=== PATIENT | female | born 1945 | race Caucasian/White ===

== ENCOUNTER 2017-03-03 01:36 | Inpatient (IN) | payer MEDICARE, MEDICAID ==
[2017-03-03] VITALS (16 sets, daily range): BP systolic 86–210; BP diastolic 38–86
[~2017-03-03] VITALS: Ht 172.7 cm; Wt 184.4 kg
[~2017-03-03 01:36] MED LIST: ACET650T78 PO; ASPI-611 PO; ATOR20TA66 PO; BISA-78 PO; DULR RC; FAMO-129 PO; FENO200C23 PO; GEO20I IM; HYDR-565 PO; LEVO100T PO; LISI-604 PO; LORA0.5T PO; MAGN400T39 PO; MAGN800O PO; METO50TA7 PO; MULT-1154 PO; OLAN10TA19 PO; OXCA600T5 PO; OXYB15TA PO; PERP8TAB6 PO; POLY119P2 PO; QUET200T PO; RISE5TAB PO; TRIH5TAB2 PO; VITC500T PO
[2017-03-03] MEDS ORDERED: ondansetron/PF 4mg/2ml inj IV ONE (01:45)
[2017-03-03] MEDS ORDERED: normal saline 1000ML IV soln IVB ONE (01:45)
[2017-03-03 02:11] LABS: BASOPHILS # (AUTO) 0.1 X10'3 (0-0.2); BASOPHILS % (AUTO) 0.4 % (0-1); EOSINOPHILS % (AUTO) 0 % (0-6); HEMOGLOBIN 12.2 g/dl (12.0-16.0); LYMPHOCYTES # (AUTO) 1.4 X10'3 (1.1-4.8); LYMPHOCYTES % (AUTO) 6.1 % (21-51); MEAN CORPUSCULAR HEMOGLOBIN 28.4 PG (27.0-31.0); MEAN CORPUSCULAR HGB CONC 33.8 % (33.0-36.5); MEAN CORPUSCULAR VOLUME 84.1 FL (78-98); MEAN PLATELET VOLUME 6.4 FL (7.4-10.4); MONOCYTES # (AUTO) 1.9 X10'3 (0-0.9); MONOCYTES % (AUTO) 8.6 % (2-12); NEUTROPHILS # (AUTO) 18.9 X10'3 (1.8-7.7); NEUTROPHILS % (AUTO) 84.9 % (42-75); PLATELET COUNT 389 X10'3 (140-440); RED BLOOD COUNT 4.28 X10'6 (4.20-5.60); RED CELL DISTRIBUTION WIDTH 15.1 % (11.5-14.5); WHITE BLOOD COUNT 22.2 X10'3 (4.5-11.0)
[2017-03-03 02:14] LABS: INR 1.1 INR; PARTIAL THROMBOPLASTIN TIME 31 SECONDS (22-32)
[2017-03-03 02:16] LABS: ALANINE AMINOTRANSFERASE 22 U/L (12-78); ALBUMIN/GLOBULIN RATIO 0.7 (1.1-1.5); ALKALINE PHOSPHATASE 68 IU/L (46-116); ANION GAP 6 (8-16); ASPARTATE AMINO TRANSFERASE 17 U/L (10-37); BILIRUBIN,TOTAL 0.6 MG/DL (0.1-1.0); BLOOD UREA NITROGEN 18 MG/DL (7-18); BUN/CREATININE RATIO 14.8 (6.6-38.0); CALCIUM 9.6 MG/DL (8.5-10.1); CHLORIDE 84 MMOL/L (99-107); CREATININE 1.22 MG/DL (0.40-0.90); GLUCOSE 277 MG/DL (70-104); LIPASE 83 U/L (73-393); MAGNESIUM 1.6 MG/DL (1.5-2.4); POTASSIUM 3.8 MMOL/L (3.5-5.1); SODIUM 121 MMOL/L (135-145); TOTAL CARBON DIOXIDE 31.3 MMOL/L (24-32); TOTAL PROTEIN 7.2 G/DL (6.4-8.2); eGFR 43 ML/MIN
[2017-03-03 02:44] LABS: CLARITY,URINE TURBID (Clear); COLOR,URINE YELLOW (Yellow); GLUCOSE, URINE >=1000 mg/dl (Neg); KETONES,URINE NEGATIVE (Neg); LEUKOCYTE ESTERASE ,URINE LARGE (Neg); NITRITES, URINE POSITIVE (Neg); OCCULT BLOOD,URINE SMALL (Neg); PROTEIN,URINE TRACE mg/dl (Neg); UROBILINOGEN,URINE 0.2 E.U/dL (0.2-1.0)
[2017-03-03 02:47] LABS: UA COLLECTION TYPE FOLEY CATH
[2017-03-03 02:51] LABS: WBC,URINE 50-100 /HPF (0-4)
[2017-03-03 02:52] LABS: AMORPHOUS PHOSPHATES 3+; BACTERIA,URINE 4+ /HPF (Neg); WBC CLUMPS,URINE MODERATE /HPF (NEGATIVE)
[2017-03-03 02:53] LABS: RBC,URINE 0-2 /HPF (0-2); SQUAMOUS EPITHELIAL CELL,UR MODERATE /LPF (FEW)
[2017-03-03 02:55] LABS: TRANSITIONAL EPI CELLS,URINE FEW /HPF
[2017-03-03 02:59] LABS: PLATELET ESTIMATE NORMAL; TOTAL CELLS COUNTED 100
[2017-03-03 03:00] LABS: TOXIC GRANULATION 4+; TOXIC VACUOLATION FEW
[2017-03-03] MEDS ORDERED: cefTRIAXone 1g/NS 100ml IVPB 100 ML IV ONE (03:15)
[2017-03-03] MEDS ORDERED: OXYB5TAB11 PO (03:16)
[2017-03-03] MEDS ORDERED: INSU100V9 SQ (03:16)
[2017-03-03] MEDS ORDERED: ACET-2119 PO (03:16)
[2017-03-03] MEDS ORDERED: LISI-600 PO (03:16)
[2017-03-03] MEDS ORDERED: MAGN400O6 PO (03:16)
[2017-03-03] MEDS ORDERED: RISP1TAB13 PO (03:16)
[2017-03-03] MEDS ORDERED: CefTRIAXone 1 gm/50ml D5W ADV 50 ML IV ONE (03:25)
[2017-03-03] MEDS ORDERED: MESSAGE TO PHARMACY PO ONE (04:20)
[2017-03-03] MEDS ORDERED: dextrose 50%-water 50ml dispensing syringe IV PRN ×2 (04:20)
[2017-03-03] MEDS ORDERED: glucagon, human recombinant 1mg kit SUBCUT PRN (04:20)
[2017-03-03] MEDS ORDERED: dextrose ORAL solution 15 GM/59 ML bottle PO PRN (04:20)
[2017-03-03] MEDS ORDERED: mag hydrox/Alum hydrox/simeth 30ml oral suspension PO PRN ×2 (04:25)
[2017-03-03] MEDS ORDERED: acetaminophen 325mg tablet PO PRN ×3 (04:25)
[2017-03-03] MEDS ORDERED: acetaminophen 325mg tablet PO ONE (04:25)
[2017-03-03] MEDS ORDERED: magnesium hydroxide 30ml (MOM) UD suspension PO PRN ×2 (04:25)
[2017-03-03] MEDS: normal saline 1000ml 1,000 ML IV SCH ×3 (05:34→16:03)
[2017-03-03 07:08] LABS: C-REACTIVE PROTEIN 22.27 MG/DL (0.0-0.5); CARBAMAZEPINE (TEGRETOL) < 0.5 UG/ML (4.0-12.0); CREATINE KINASE 82 U/L (26-192); TROPONIN I < 0.04 NG/ML (0.0-0.05)
[2017-03-03] MEDS ORDERED: metoprolol succinate 25mg (24-HOUR) SR. Tablet PO SCH (08:00)
[2017-03-03] MEDS ORDERED: lisinopril 20mg tablet PO SCH (08:00)
[2017-03-03] MEDS: levoTHYROXINE 100mcg tablet PO SCH (08:07)
[2017-03-03] MEDS: oxybutynin 5mg tablet PO SCH (08:09)
[2017-03-03] MEDS ORDERED: CAPT25TA3 PO (10:16)
[2017-03-03] MEDS ORDERED: NYSPWD TP (10:16)
[2017-03-03] MEDS ORDERED: LORA-269 PO (10:24)
[2017-03-03] MEDS ORDERED: MAGN400C PO (10:31)
[2017-03-03] MEDS: LORazepam 0.5 MG tablet PO PRN ×2 (10:44→11:09)
[2017-03-03] MEDS: trihexyphenidyl HCL 5 MG tablet PO SCH ×2 (11:09→21:49)
[2017-03-03] MEDS: oxcarbazepine 150mg tablet PO SCH ×2 (11:11→21:43)
[2017-03-03] MEDS: insulin Lispro (HumaLOG) vial - multi-dose SQ SCH (11:19)
[2017-03-03] MEDS ORDERED: potassium Cl 20 mEq SR tablet PO PRN ×2 (13:15)
[2017-03-03] MEDS ORDERED: vancomycin/NS 1 GM ADD-VANTAGE 250 ML IV ONE (13:20)
[2017-03-03 14:36] LABS: LACTIC SEPSIS 0.7 MMOL/L (0.4-2.0)
[2017-03-03] MEDS ORDERED: iohexol 300 MG/1 ML 50ml polymer ONE (15:42)
[2017-03-03] MEDS: K, MAG and/or Phos replacement - Verify level? MC SCH (16:06)
[2017-03-03] MEDS ORDERED: LIDOcaine 1% (10mg/ml) 2ml vial ONE (16:12)
[2017-03-03 16:14] LABS: ALANINE AMINOTRANSFERASE 24 U/L (12-78); ALBUMIN 2.6 G/DL (3.4-5.0); ALBUMIN/GLOBULIN RATIO 0.6 (1.1-1.5); ALKALINE PHOSPHATASE 61 IU/L (46-116); ANION GAP 7 (8-16); ASPARTATE AMINO TRANSFERASE 21 U/L (10-37); BILIRUBIN,TOTAL 0.5 MG/DL (0.1-1.0); BLOOD UREA NITROGEN 14 MG/DL (7-18); BUN/CREATININE RATIO 16.5 (6.6-38.0); CALCIUM 8.6 MG/DL (8.5-10.1); CHLORIDE 90 MMOL/L (99-107); CREATININE 0.85 MG/DL (0.40-0.90); GLUCOSE 165 MG/DL (70-104); SODIUM 125 MMOL/L (135-145); TOTAL CARBON DIOXIDE 27.7 MMOL/L (24-32); TOTAL PROTEIN 6.9 G/DL (6.4-8.2); eGFR 66 ML/MIN
[2017-03-03] MEDS: CefTRIAXone 1 gm/50ml D5W ADV 50 ML IV SCH ×2 (16:26→21:49)
[2017-03-03] MEDS ORDERED: fentaNYL/PF 50MCG/1 ML 2ML syringe ONE ×3 (16:27→18:25)
[2017-03-03] MEDS ORDERED: etomidate 2mg/ml inj. ONE (16:30)
[2017-03-03] MEDS ORDERED: rocuronium 10mg/ml inj IV ONE ×2 (16:30→18:25)
[2017-03-03] MEDS ORDERED: LIDOcaine 1%/PF (10mg/ml) 5ml vial ONE (16:30)
[2017-03-03] MEDS: risperiDONE 0.5mg tablet PO SCH ×2 (16:36→21:44)
[2017-03-03] MEDS ORDERED: sevoflurane 250ml liquid IH ONE ×2 (16:36)
[2017-03-03] MEDS: pantoprazole 40 MG vial IV SCH ×2 (16:36→21:42)
[2017-03-03] MEDS: lactobacillus rhamnosus 10,000 MMU CELLS/CAPSULE PO SCH (16:37)
[2017-03-03] MEDS ORDERED: midazolam 2 mg/2 ml injection ONE (18:25)
[2017-03-03] MEDS: ipratropium/albuterol 3ml nebule NEB SCH (19:00)
[2017-03-03 19:15] LABS: ABG BASE EXCESS -1.5 mmol/L (-2.0-3.0); ABG OXYGEN SATURATION 99.3 % (95-98); ABG PCO2 (T) 28.7 mmHg (32.0-45.0); ABG PH (T) 7.482 (7.350-7.450); ABG PO2 (T) 288.3 mmHg (83-108); FCOHb 0.3 % (0.5-1.5); FMetHb 0.4 % (0.3-1.12); FO2Hb 98.6 % (94-100); MINUTE VOLUME 9 L/min; PEEP 5 cm H2O; RESPIRATORY RATE 12 b/min; RESPIRATORY RATE (OBSERVED) 12 b/min; TOTAL HEMOGLOBIN 11.7 G/dl (12.0-16.0)
[2017-03-03] MEDS ORDERED: normal saline 1000ml 1,000 ML IV PRN ×2 (19:25)
[2017-03-03] MEDS ORDERED: phenylephrine 10mg/ml inj IV ONE (19:56)
[2017-03-03] MEDS: normal saline 1000ml 1,000 ML IV PRN (20:12)
[2017-03-03 20:35] LABS: OXYGEN SATURATION (MIXED VEN) 82.4 % (60-80); PO2 MIXED VENOUS (TEMP COR) 57.4 mmHg (35-46)
[2017-03-03 20:40] LABS: BASOPHILS % (AUTO) 0.1 % (0-1); EOSINOPHILS # (AUTO) 0.1 X10'3 (0-0.9); EOSINOPHILS % (AUTO) 0.4 % (0-6); HEMATOCRIT 32.8 % (35.0-45.0); HEMOGLOBIN 10.8 g/dl (12.0-16.0); LYMPHOCYTES # (AUTO) 1.4 X10'3 (1.1-4.8); LYMPHOCYTES % (AUTO) 8.5 % (21-51); MEAN CORPUSCULAR VOLUME 84.7 FL (78-98); MEAN PLATELET VOLUME 6.2 FL (7.4-10.4); MONOCYTES # (AUTO) 1.2 X10'3 (0-0.9); PLATELET COUNT 319 X10'3 (140-440); RED BLOOD COUNT 3.87 X10'6 (4.20-5.60); RED CELL DISTRIBUTION WIDTH 14.7 % (11.5-14.5); WHITE BLOOD COUNT 16.6 X10'3 (4.5-11.0)
[2017-03-03 20:49] LABS: INR 1.1 INR; PARTIAL THROMBOPLASTIN TIME 30 SECONDS (22-32); PROTHROMBIN TIME 11.1 SECONDS (9.0-12.0)
[2017-03-03 20:54] LABS: ALANINE AMINOTRANSFERASE 23 U/L (12-78); ALBUMIN 2.2 G/DL (3.4-5.0); ALBUMIN/GLOBULIN RATIO 0.6 (1.1-1.5); ALKALINE PHOSPHATASE 56 IU/L (46-116); ANION GAP 2 (8-16); ASPARTATE AMINO TRANSFERASE 20 U/L (10-37); BILIRUBIN,TOTAL 0.4 MG/DL (0.1-1.0); BLOOD UREA NITROGEN 13 MG/DL (7-18); BUN/CREATININE RATIO 15.9 (6.6-38.0); CHLORIDE 95 MMOL/L (99-107); CREATININE 0.82 MG/DL (0.40-0.90); GLUCOSE 146 MG/DL (70-104); MAGNESIUM 1.6 MG/DL (1.5-2.4); PHOSPHORUS 2.6 MG/DL (2.3-4.5); POTASSIUM 4.4 MMOL/L (3.5-5.1); SODIUM 128 MMOL/L (135-145); TOTAL CARBON DIOXIDE 30.6 MMOL/L (24-32); eGFR 68 ML/MIN
[2017-03-03 21:05] LABS: ABG BASE EXCESS -2.2 mmol/L (-2.0-3.0); ABG HCO3 24.2 mmol/L (22.0-26.0); ABG OXYGEN SATURATION 98.9 % (95-98); ABG PCO2 (T) 47.9 mmHg (32.0-45.0); ABG PH (T) 7.321 (7.350-7.450); ABG PO2 (T) 157.3 mmHg (83-108); FCOHb 0.4 % (0.5-1.5); FMetHb 0.3 % (0.3-1.12); FO2Hb 98.2 % (94-100); MINUTE VOLUME 8 L/min; PEEP 5 cm H2O; RESPIRATORY RATE 12 b/min; RESPIRATORY RATE (OBSERVED) 12 b/min; TOTAL HEMOGLOBIN 12.2 G/dl (12.0-16.0)
[2017-03-03 21:05] LABS: PO2 MIXED VENOUS (TEMP COR) 43.8 mmHg (35-46)
[2017-03-03] MEDS: acetaminophen 325mg/10.15ml oral unit dose solution PO PRN (21:43)
[2017-03-03] MEDS: hydrocortisone sod succ/PF 100mg/2ml inj. IV SCH (21:43)
[2017-03-03] MEDS: atorvastatin 20mg tablet PO SCH (21:44)
[2017-03-03] MEDS: quetiapine 100mg tablet PO SCH (21:44)
[2017-03-04] VITALS (24 sets, daily range): BP systolic 90–158; BP diastolic 44–68
[2017-03-04] MEDS ORDERED: NORepinephrine 8mg/ 250ml NS 250 ML IV ONE (00:22)
[2017-03-04] MEDS: NORepinephrine 8mg/ 250ml NS 250 ML IV SCH (00:33)
[2017-03-04] MEDS: hydrocortisone sod succ/PF 100mg/2ml inj. IV SCH ×4 (02:24→21:38)
[2017-03-04] MEDS: insulin Lispro (HumaLOG) vial - multi-dose SQ SCH ×4 (02:25→21:08)
[2017-03-04 02:46] LABS: BASOPHILS % (AUTO) 0 % (0-1); EOSINOPHILS % (AUTO) 0.1 % (0-6); HEMATOCRIT 30.6 % (35.0-45.0); HEMOGLOBIN 10.1 g/dl (12.0-16.0); LYMPHOCYTES # (AUTO) 0.8 X10'3 (1.1-4.8); LYMPHOCYTES % (AUTO) 4.4 % (21-51); MEAN CORPUSCULAR HEMOGLOBIN 28.2 PG (27.0-31.0); MEAN CORPUSCULAR HGB CONC 33.1 % (33.0-36.5); MEAN CORPUSCULAR VOLUME 85.1 FL (78-98); MEAN PLATELET VOLUME 6.6 FL (7.4-10.4); MONOCYTES # (AUTO) 1.4 X10'3 (0-0.9); MONOCYTES % (AUTO) 7.9 % (2-12); NEUTROPHILS # (AUTO) 15.8 X10'3 (1.8-7.7); NEUTROPHILS % (AUTO) 87.6 % (42-75); PLATELET COUNT 299 X10'3 (140-440); RED BLOOD COUNT 3.59 X10'6 (4.20-5.60); RED CELL DISTRIBUTION WIDTH 14.9 % (11.5-14.5); WHITE BLOOD COUNT 18.1 X10'3 (4.5-11.0)
[2017-03-04 02:56] LABS: INR 1.1 INR; PARTIAL THROMBOPLASTIN TIME 31 SECONDS (22-32); PROTHROMBIN TIME 11.1 SECONDS (9.0-12.0)
[2017-03-04 03:03] LABS: ALANINE AMINOTRANSFERASE 21 U/L (12-78); ALBUMIN/GLOBULIN RATIO 0.6 (1.1-1.5); ALKALINE PHOSPHATASE 55 IU/L (46-116); ANION GAP 7 (8-16); ASPARTATE AMINO TRANSFERASE 19 U/L (10-37); BILIRUBIN,TOTAL 0.4 MG/DL (0.1-1.0); BLOOD UREA NITROGEN 14 MG/DL (7-18); BUN/CREATININE RATIO 18.9 (6.6-38.0); CALCIUM 7.8 MG/DL (8.5-10.1); CHLORIDE 96 MMOL/L (99-107); CREATININE 0.74 MG/DL (0.40-0.90); GLUCOSE 215 MG/DL (70-104); MAGNESIUM 1.6 MG/DL (1.5-2.4); POTASSIUM 3.9 MMOL/L (3.5-5.1); SODIUM 127 MMOL/L (135-145); TOTAL CARBON DIOXIDE 23.7 MMOL/L (24-32); TOTAL PROTEIN 5.6 G/DL (6.4-8.2); eGFR 77 ML/MIN
[2017-03-04 03:06] LABS: ABG BASE EXCESS -0.4 mmol/L (-2.0-3.0); ABG HCO3 22.9 mmol/L (22.0-26.0); ABG PH (T) 7.459 (7.350-7.450); ABG PO2 (T) 89.9 mmHg (83-108); FCOHb 0.1 % (0.5-1.5); FMetHb 0.3 % (0.3-1.12); FO2Hb 96.6 % (94-100); MINUTE VOLUME 9 L/min; PEEP 5 cm H2O; RESPIRATORY RATE 12 b/min; RESPIRATORY RATE (OBSERVED) 12 b/min; TIDAL VOLUME 600 mL
[2017-03-04 03:10] LABS: ANISOCYTOSIS 1+; PLATELET ESTIMATE NORMAL; TOTAL CELLS COUNTED 100; TOXIC GRANULATION 1+
[2017-03-04] MEDS: lactobacillus rhamnosus 10,000 MMU CELLS/CAPSULE PO SCH ×2 (07:30→16:45)
[2017-03-04] MEDS: FENTANYL-0.9 % NACL/PF 100 ML IV PRN (07:42)
[2017-03-04] MEDS: midazolam 100mg in NS 100ml 100 ML IV PRN ×2 (07:42→19:05)
[2017-03-04] MEDS: ipratropium/albuterol 3ml nebule NEB SCH ×6 (07:48→22:43)
[2017-03-04] MEDS: K, MAG and/or Phos replacement - Verify level? MC SCH (08:00)
[2017-03-04] MEDS: oxcarbazepine 150mg tablet PO SCH ×2 (08:00→21:34)
[2017-03-04] MEDS: levoTHYROXINE 100mcg tablet PO SCH (08:00)
[2017-03-04] MEDS: trihexyphenidyl HCL 5 MG tablet PO SCH (08:00)
[2017-03-04] MEDS: risperiDONE 0.5mg tablet PO SCH ×2 (08:00→21:34)
[2017-03-04] MEDS: oxybutynin 5mg tablet PO SCH (08:00)
[2017-03-04] MEDS: quetiapine 100mg tablet PO SCH ×3 (08:00→21:35)
[2017-03-04] MEDS: CefTRIAXone 1 gm/50ml D5W ADV 50 ML IV SCH ×2 (08:21→22:31)
[2017-03-04] MEDS: pantoprazole 40 MG vial IV SCH ×2 (08:21→21:42)
[2017-03-04] MEDS ORDERED: methylnaltrexone br 12mg/0.6ml inj***SubQ only SQ ONE (12:15)
[2017-03-04] MEDS ORDERED: bisacodyl 10mg suppository rectal RC PRN (13:00)
[2017-03-04] MEDS: normal saline 1000ml 1,000 ML IV PRN (14:08)
[2017-03-04] MEDS: dexmedetomidin/NS 400mcg/100ml 100 ML IV SCH (20:38)
[2017-03-04] MEDS: atorvastatin 20mg tablet PO SCH (21:35)
[2017-03-04] MEDS: polyethylene glycol 3350 17gm powd pack PO SCH (21:35)
[2017-03-04] MEDS: mineral oil/petrolatum ophthal oint EACHEYE SCH (22:31)
[2017-03-05] VITALS (24 sets, daily range): BP systolic 140–196; BP diastolic 50–122
[2017-03-05] MEDS: insulin Lispro (HumaLOG) vial - multi-dose SQ SCH ×4 (02:15→21:44)
[2017-03-05 02:51] LABS: BASOPHILS % (AUTO) 0.2 % (0-1); EOSINOPHILS % (AUTO) 0.1 % (0-6); HEMATOCRIT 29.3 % (35.0-45.0); HEMOGLOBIN 10.1 g/dl (12.0-16.0); LYMPHOCYTES # (AUTO) 1.1 X10'3 (1.1-4.8); LYMPHOCYTES % (AUTO) 7.7 % (21-51); MEAN CORPUSCULAR HEMOGLOBIN 28.8 PG (27.0-31.0); MEAN CORPUSCULAR HGB CONC 34.4 % (33.0-36.5); MEAN CORPUSCULAR VOLUME 83.9 FL (78-98); MEAN PLATELET VOLUME 7.1 FL (7.4-10.4); MONOCYTES % (AUTO) 7.2 % (2-12); NEUTROPHILS % (AUTO) 84.8 % (42-75); PLATELET COUNT 326 X10'3 (140-440); RED BLOOD COUNT 3.49 X10'6 (4.20-5.60); RED CELL DISTRIBUTION WIDTH 14.2 % (11.5-14.5); WHITE BLOOD COUNT 14.1 X10'3 (4.5-11.0)
[2017-03-05] MEDS: mineral oil/petrolatum ophthal oint EACHEYE SCH ×4 (02:51→20:00)
[2017-03-05] MEDS: hydrocortisone sod succ/PF 100mg/2ml inj. IV SCH ×4 (02:51→22:19)
[2017-03-05 02:53] LABS: PARTIAL THROMBOPLASTIN TIME 29 SECONDS (22-32); PROTHROMBIN TIME 10.7 SECONDS (9.0-12.0)
[2017-03-05 02:56] LABS: ALANINE AMINOTRANSFERASE 54 U/L (12-78); ALBUMIN 1.9 G/DL (3.4-5.0); ALBUMIN/GLOBULIN RATIO 0.5 (1.1-1.5); ALKALINE PHOSPHATASE 56 IU/L (46-116); ANION GAP 7 (8-16); ASPARTATE AMINO TRANSFERASE 45 U/L (10-37); BILIRUBIN,TOTAL 0.2 MG/DL (0.1-1.0); BLOOD UREA NITROGEN 10 MG/DL (7-18); BUN/CREATININE RATIO 15.9 (6.6-38.0); CALCIUM 7.9 MG/DL (8.5-10.1); CHLORIDE 104 MMOL/L (99-107); CREATININE 0.63 MG/DL (0.40-0.90); GLUCOSE 201 MG/DL (70-104); PHOSPHORUS 1.7 MG/DL (2.3-4.5); POTASSIUM 3.8 MMOL/L (3.5-5.1); SODIUM 137 MMOL/L (135-145); TOTAL CARBON DIOXIDE 25.8 MMOL/L (24-32); TOTAL PROTEIN 5.8 G/DL (6.4-8.2); eGFR > 90 ML/MIN
[2017-03-05] MEDS: ipratropium/albuterol 3ml nebule NEB SCH ×6 (02:57→23:21)
[2017-03-05] MEDS: FENTANYL-0.9 % NACL/PF 100 ML IV PRN ×2 (02:58→19:36)
[2017-03-05 03:21] LABS: ABG BASE EXCESS -0.9 mmol/L (-2.0-3.0); ABG OXYGEN SATURATION 93.9 % (95-98); ABG PH (T) 7.426 (7.350-7.450); ABG PO2 (T) 72.4 mmHg (83-108); FCOHb 0.3 % (0.5-1.5); FO2Hb 93.6 % (94-100); MINUTE VOLUME 8 L/min; PATIENT TEMPERATURE 37.3; PEEP 5 cm H2O; RESPIRATORY RATE 12 b/min; RESPIRATORY RATE (OBSERVED) 12 b/min; TIDAL VOLUME 600 mL; TOTAL HEMOGLOBIN 10.9 G/dl (12.0-16.0)
[2017-03-05] MEDS: enalaprilat dihydrate 2.5mg/2ml vial IV PRN (04:47)
[2017-03-05] MEDS ORDERED: enalaprilat dihydrate 2.5mg/2ml vial IV ONE (06:45)
[2017-03-05] MEDS: pantoprazole 40 MG vial IV SCH ×2 (07:28→22:13)
[2017-03-05] MEDS: lactobacillus rhamnosus 10,000 MMU CELLS/CAPSULE PO SCH ×2 (07:30→17:30)
[2017-03-05] MEDS: risperiDONE 0.5mg tablet PO SCH ×2 (08:00→22:03)
[2017-03-05] MEDS: K, MAG and/or Phos replacement - Verify level? MC SCH (08:00)
[2017-03-05] MEDS ORDERED: CefTRIAXone inj 1,000 MG in normal saline 100ml IV soln 100 ML IV SCH (08:00)
[2017-03-05] MEDS: quetiapine 100mg tablet PO SCH ×3 (08:00→22:02)
[2017-03-05] MEDS: enalaprilat dihydrate 2.5mg/2ml vial IV SCH ×3 (08:00→20:00)
[2017-03-05] MEDS: oxcarbazepine 150mg tablet PO SCH ×2 (08:00→22:02)
[2017-03-05] MEDS: levoTHYROXINE 100mcg tablet PO SCH (08:00)
[2017-03-05] MEDS ORDERED: diphenhydrAMINE 50 mg/ml inj IM PRN (11:35)
[2017-03-05] MEDS ORDERED: LORazepam 2 mg/ml vial IV PRN (11:35)
[2017-03-05] MEDS ORDERED: haloperidol lactate 5mg/ml inj IM PRN (11:35)
[2017-03-05 14:36] LABS: ABG BASE EXCESS 3.7 mmol/L (-2.0-3.0); ABG PCO2 (T) 37.1 mmHg (32.0-45.0); ABG PH (T) 7.483 (7.350-7.450); ABG PO2 (T) 64.7 mmHg (83-108); FMetHb 0.3 % (0.3-1.12); FO2Hb 91.7 % (94-100); PATIENT TEMPERATURE 37.8; PEEP 5 cm H2O; TOTAL HEMOGLOBIN 11.2 G/dl (12.0-16.0)
[2017-03-05] MEDS: dexmedetomidin/NS 400mcg/100ml 100 ML IV SCH ×2 (14:44→20:01)
[2017-03-05] MEDS: hydrALAZINE 20mg/ml inj. IV PRN (14:50)
[2017-03-05] MEDS: furosemide 10 MG/1 ML 10ml inj IV SCH ×2 (14:50→22:17)
[2017-03-05] MEDS: acetaminophen 325mg/10.15ml oral unit dose solution PO PRN (19:45)
[2017-03-05] MEDS: polyethylene glycol 3350 17gm powd pack PO SCH (22:02)
[2017-03-05] MEDS: atorvastatin 20mg tablet PO SCH (22:04)
[2017-03-05] MEDS: cefTRIAXone 1g/NS 100ml IVPB 100 ML IV SCH (22:21)
[2017-03-06] VITALS (24 sets, daily range): BP systolic 122–194; BP diastolic 53–85
[2017-03-06] MEDS: NORepinephrine 8mg/ 250ml NS 250 ML IV SCH (00:20)
[2017-03-06] MEDS: enalaprilat dihydrate 2.5mg/2ml vial IV SCH ×3 (02:00→14:00)
[2017-03-06] MEDS: ipratropium/albuterol 3ml nebule NEB SCH ×6 (02:59→22:53)
[2017-03-06] MEDS ORDERED: acetaminophen 650mg rectal suppository RC PRN (03:25)
[2017-03-06 04:01] LABS: ABG BASE EXCESS 7.4 mmol/L (-2.0-3.0); ABG HCO3 30.3 mmol/L (22.0-26.0); ABG OXYGEN SATURATION 89.2 % (95-98); ABG PCO2 (T) 38.6 mmHg (32.0-45.0); ABG PH (T) 7.517 (7.350-7.450); ABG PO2 (T) 58.3 mmHg (83-108); FCOHb 0.3 % (0.5-1.5); FMetHb 0.3 % (0.3-1.12); FO2Hb 88.7 % (94-100); MINUTE VOLUME 10 L/min; PATIENT TEMPERATURE 38.3; PEEP 5 cm H2O; RESPIRATORY RATE 10 b/min; RESPIRATORY RATE (OBSERVED) 25 b/min; TIDAL VOLUME 350 mL; TOTAL HEMOGLOBIN 11.8 G/dl (12.0-16.0)
[2017-03-06 04:51] LABS: BASOPHILS % (AUTO) 0.2 % (0-1); EOSINOPHILS % (AUTO) 0 % (0-6); HEMATOCRIT 33.1 % (35.0-45.0); HEMOGLOBIN 11.1 g/dl (12.0-16.0); LYMPHOCYTES # (AUTO) 1.7 X10'3 (1.1-4.8); LYMPHOCYTES % (AUTO) 11.9 % (21-51); MEAN CORPUSCULAR HEMOGLOBIN 28.4 PG (27.0-31.0); MEAN CORPUSCULAR HGB CONC 33.6 % (33.0-36.5); MEAN CORPUSCULAR VOLUME 84.3 FL (78-98); MEAN PLATELET VOLUME 6.9 FL (7.4-10.4); MONOCYTES # (AUTO) 1.3 X10'3 (0-0.9); MONOCYTES % (AUTO) 9.2 % (2-12); NEUTROPHILS # (AUTO) 10.9 X10'3 (1.8-7.7); NEUTROPHILS % (AUTO) 78.7 % (42-75); PLATELET COUNT 403 X10'3 (140-440); RED BLOOD COUNT 3.93 X10'6 (4.20-5.60); RED CELL DISTRIBUTION WIDTH 15.2 % (11.5-14.5); WHITE BLOOD COUNT 13.9 X10'3 (4.5-11.0)
[2017-03-06 05:05] LABS: INR 1.1 INR; PARTIAL THROMBOPLASTIN TIME 25 SECONDS (22-32); PROTHROMBIN TIME 11.3 SECONDS (9.0-12.0)
[2017-03-06 05:10] LABS: ALANINE AMINOTRANSFERASE 78 U/L (12-78); ALBUMIN 2.2 G/DL (3.4-5.0); ALBUMIN/GLOBULIN RATIO 0.5 (1.1-1.5); ALKALINE PHOSPHATASE 63 IU/L (46-116); ANION GAP 6 (8-16); ASPARTATE AMINO TRANSFERASE 46 U/L (10-37); BILIRUBIN,TOTAL 0.2 MG/DL (0.1-1.0); BLOOD UREA NITROGEN 11 MG/DL (7-18); BUN/CREATININE RATIO 17.7 (6.6-38.0); CALCIUM 8.4 MG/DL (8.5-10.1); CHLORIDE 103 MMOL/L (99-107); CREATININE 0.62 MG/DL (0.40-0.90); GLUCOSE 145 MG/DL (70-104); MAGNESIUM 1.5 MG/DL (1.5-2.4); SODIUM 143 MMOL/L (135-145); TOTAL CARBON DIOXIDE 34.1 MMOL/L (24-32); TOTAL PROTEIN 6.5 G/DL (6.4-8.2); eGFR > 90 ML/MIN
[2017-03-06 05:15] LABS: POTASSIUM 2.4 MMOL/L (3.5-5.1)
[2017-03-06] MEDS ORDERED: Potassium Cl inj 40 MEQ in normal saline 250ml IV soln 230 ML IV ONE ×2 (05:30→06:05)
[2017-03-06] MEDS: hydrocortisone sod succ/PF 100mg/2ml inj. IV SCH ×4 (05:30→20:46)
[2017-03-06] MEDS: dexmedetomidin/NS 400mcg/100ml 100 ML IV SCH ×2 (05:31→18:48)
[2017-03-06] MEDS: mineral oil/petrolatum ophthal oint EACHEYE SCH ×4 (05:39→20:47)
[2017-03-06] MEDS ORDERED: potassium 10mEq/100ml NS w/LIDOcaine (10mg/bag) IV SCH (05:40)
[2017-03-06] MEDS: cefTRIAXone 1g/NS 100ml IVPB 100 ML IV SCH ×2 (07:07→20:46)
[2017-03-06] MEDS: pantoprazole 40 MG vial IV SCH ×2 (07:07→20:46)
[2017-03-06] MEDS: lactobacillus rhamnosus 10,000 MMU CELLS/CAPSULE PO SCH ×2 (07:30→17:03)
[2017-03-06] MEDS: furosemide 10 MG/1 ML 10ml inj IV SCH ×3 (07:36→20:46)
[2017-03-06] MEDS: risperiDONE 0.5mg tablet PO SCH ×2 (07:36→20:00)
[2017-03-06] MEDS: K, MAG and/or Phos replacement - Verify level? MC SCH (07:36)
[2017-03-06] MEDS: levoTHYROXINE 100mcg tablet PO SCH (07:37)
[2017-03-06] MEDS: quetiapine 100mg tablet PO SCH ×3 (07:37→20:48)
[2017-03-06] MEDS: oxcarbazepine 150mg tablet PO SCH ×2 (07:37→20:00)
[2017-03-06] MEDS: FENTANYL-0.9 % NACL/PF 100 ML IV PRN (08:42)
[2017-03-06] MEDS: midazolam 100mg in NS 100ml 100 ML IV PRN (08:42)
[2017-03-06] MEDS: hydrALAZINE 20mg/ml inj. IV PRN ×2 (08:42→16:08)
[2017-03-06 14:18] LABS: MAGNESIUM 1.5 MG/DL (1.5-2.4)
[2017-03-06 14:20] LABS: POTASSIUM 2.7 MMOL/L (3.5-5.1)
[2017-03-06] MEDS ORDERED: magnesium 2GM in 50ml NS 50 ML IV PRN (14:35)
[2017-03-06] MEDS ORDERED: magnesium 4gm in 100ml NS 100 ML IV PRN (14:35)
[2017-03-06] MEDS ORDERED: potassium Cl 40MEQ/250ML bag 250 ML IV PRN (14:35)
[2017-03-06] MEDS: insulin Lispro (HumaLOG) vial - multi-dose SQ SCH ×2 (14:48→21:09)
[2017-03-06] MEDS: potassium Cl 40MEQ/250ML bag 250 ML IV PRN (16:09)
[2017-03-06] MEDS: niCARDipine/sod cl 20mg/200ml 200 ML IV SCH ×2 (16:30→20:30)
[2017-03-06] MEDS ORDERED: methylnaltrexone br 12mg/0.6ml inj***SubQ only SQ ONE (16:30)
[2017-03-06] MEDS: atorvastatin 20mg tablet PO SCH (20:47)
[2017-03-06] MEDS: polyethylene glycol 3350 17gm powd pack PO SCH ×2 (20:47→20:48)
[2017-03-07] VITALS (24 sets, daily range): BP systolic 98–190; BP diastolic 53–88
[2017-03-07 00:30] LABS: BASOPHILS % (AUTO) 0 % (0-1); EOSINOPHILS # (AUTO) 0.1 X10'3 (0-0.9); HEMATOCRIT 32.9 % (35.0-45.0); HEMOGLOBIN 11.1 g/dl (12.0-16.0); LYMPHOCYTES # (AUTO) 1.2 X10'3 (1.1-4.8); LYMPHOCYTES % (AUTO) 10.7 % (21-51); MEAN CORPUSCULAR HEMOGLOBIN 28.2 PG (27.0-31.0); MEAN CORPUSCULAR HGB CONC 33.8 % (33.0-36.5); MEAN CORPUSCULAR VOLUME 83.3 FL (78-98); MEAN PLATELET VOLUME 6.1 FL (7.4-10.4); MONOCYTES # (AUTO) 1.2 X10'3 (0-0.9); MONOCYTES % (AUTO) 10.3 % (2-12); NEUTROPHILS # (AUTO) 8.7 X10'3 (1.8-7.7); PLATELET COUNT 456 X10'3 (140-440); RED BLOOD COUNT 3.94 X10'6 (4.20-5.60); RED CELL DISTRIBUTION WIDTH 15.1 % (11.5-14.5); WHITE BLOOD COUNT 11.2 X10'3 (4.5-11.0)
[2017-03-07] MEDS: niCARDipine/sod cl 20mg/200ml 200 ML IV SCH ×6 (00:30→20:30)
[2017-03-07 00:42] LABS: INR 1.1 INR; PARTIAL THROMBOPLASTIN TIME 26 SECONDS (22-32); PROTHROMBIN TIME 11.4 SECONDS (9.0-12.0)
[2017-03-07 01:07] LABS: ALANINE AMINOTRANSFERASE 64 U/L (12-78); ALBUMIN 2.2 G/DL (3.4-5.0); ALBUMIN/GLOBULIN RATIO 0.5 (1.1-1.5); ALKALINE PHOSPHATASE 65 IU/L (46-116); ANION GAP 7 (8-16); ASPARTATE AMINO TRANSFERASE 30 U/L (10-37); BILIRUBIN,TOTAL 0.3 MG/DL (0.1-1.0); BLOOD UREA NITROGEN 15 MG/DL (7-18); BUN/CREATININE RATIO 20.8 (6.6-38.0); CALCIUM 8.3 MG/DL (8.5-10.1); CHLORIDE 108 MMOL/L (99-107); CREATININE 0.72 MG/DL (0.40-0.90); GLUCOSE 185 MG/DL (70-104); MAGNESIUM 1.6 MG/DL (1.5-2.4); PHOSPHORUS 2.2 MG/DL (2.3-4.5); SODIUM 147 MMOL/L (135-145); TOTAL CARBON DIOXIDE 32.1 MMOL/L (24-32); TOTAL PROTEIN 6.6 G/DL (6.4-8.2); eGFR 79 ML/MIN
[2017-03-07 01:13] LABS: POTASSIUM 2.9 MMOL/L (3.5-5.1)
[2017-03-07] MEDS ORDERED: potassium Cl 40MEQ/250ML bag 500 ML IV ONE (01:24)
[2017-03-07] MEDS: FENTANYL-0.9 % NACL/PF 100 ML IV PRN (01:36)
[2017-03-07] MEDS: dexmedetomidin/NS 400mcg/100ml 100 ML IV SCH (01:54)
[2017-03-07] MEDS: hydrocortisone sod succ/PF 100mg/2ml inj. IV SCH ×4 (01:55→19:50)
[2017-03-07] MEDS: mineral oil/petrolatum ophthal oint EACHEYE SCH ×4 (01:56→20:00)
[2017-03-07] MEDS: insulin Lispro (HumaLOG) vial - multi-dose SQ SCH ×4 (02:01→20:33)
[2017-03-07 02:55] LABS: ABG BASE EXCESS 6.7 mmol/L (-2.0-3.0); ABG HCO3 30.1 mmol/L (22.0-26.0); ABG OXYGEN SATURATION 94.2 % (95-98); ABG PCO2 (T) 41.5 mmHg (32.0-45.0); ABG PH (T) 7.485 (7.350-7.450); ABG PO2 (T) 74.4 mmHg (83-108); FCOHb 0.1 % (0.5-1.5); FMetHb 0.3 % (0.3-1.12); FO2Hb 93.8 % (94-100); MINUTE VOLUME 8 L/min; PATIENT TEMPERATURE 38.7; PEEP 5 cm H2O; RESPIRATORY RATE 8 b/min; RESPIRATORY RATE (OBSERVED) 30 b/min; TIDAL VOLUME 450 mL; TOTAL HEMOGLOBIN 11.5 G/dl (12.0-16.0)
[2017-03-07] MEDS: ipratropium/albuterol 3ml nebule NEB SCH ×6 (03:07→23:28)
[2017-03-07] MEDS: acetaminophen 325mg/10.15ml oral unit dose solution PO PRN (04:20)
[2017-03-07] MEDS: hydrALAZINE 20mg/ml inj. IV PRN ×3 (04:20→17:47)
[2017-03-07] MEDS: cefTRIAXone 1g/NS 100ml IVPB 100 ML IV SCH ×2 (07:31→19:50)
[2017-03-07] MEDS: pantoprazole 40 MG vial IV SCH ×2 (07:31→19:50)
[2017-03-07] MEDS: quetiapine 100mg tablet PO SCH ×3 (07:31→21:11)
[2017-03-07] MEDS: lactobacillus rhamnosus 10,000 MMU CELLS/CAPSULE PO SCH ×2 (07:31→17:30)
[2017-03-07] MEDS: furosemide 10 MG/1 ML 10ml inj IV SCH (07:31)
[2017-03-07] MEDS: risperiDONE 0.5mg tablet PO SCH ×2 (07:31→19:49)
[2017-03-07] MEDS: levoTHYROXINE 100mcg tablet PO SCH (07:32)
[2017-03-07] MEDS: enoxaparin 40mg/0.4ml syringe SUBCUT SCH (07:32)
[2017-03-07] MEDS: oxcarbazepine 150mg tablet PO SCH ×2 (07:32→19:50)
[2017-03-07] MEDS: K, MAG and/or Phos replacement - Verify level? MC SCH (08:00)
[2017-03-07] MEDS: potassium Cl 40MEQ/250ML bag 250 ML IV PRN ×3 (12:07→22:07)
[2017-03-07] MEDS: normal saline 1000ml 1,000 ML IV PRN (14:51)
[2017-03-07] MEDS: enalaprilat dihydrate 2.5mg/2ml vial IV PRN ×2 (15:17→21:54)
[2017-03-07] MEDS: polyethylene glycol 3350 17gm powd pack PO SCH ×2 (21:00)
[2017-03-07] MEDS: atorvastatin 20mg tablet PO SCH (21:10)
[2017-03-08] VITALS (25 sets, daily range): BP systolic 137–179; BP diastolic 57–79
[2017-03-08] MEDS: NORepinephrine 8mg/ 250ml NS 250 ML IV SCH (00:20)
[2017-03-08] MEDS: niCARDipine/sod cl 20mg/200ml 200 ML IV SCH ×6 (00:30→20:30)
[2017-03-08] MEDS: normal saline 1000ml 1,000 ML IV PRN (00:45)
[2017-03-08] MEDS: hydrALAZINE 20mg/ml inj. IV PRN ×4 (01:42→17:09)
[2017-03-08] MEDS: hydrocortisone sod succ/PF 100mg/2ml inj. IV SCH ×4 (01:42→19:44)
[2017-03-08 01:59] LABS: BASOPHILS % (AUTO) 0.3 % (0-1); EOSINOPHILS # (AUTO) 0.1 X10'3 (0-0.9); EOSINOPHILS % (AUTO) 0.6 % (0-6); HEMATOCRIT 34.1 % (35.0-45.0); HEMOGLOBIN 11.3 g/dl (12.0-16.0); LYMPHOCYTES % (AUTO) 15.2 % (21-51); MEAN CORPUSCULAR HEMOGLOBIN 28.2 PG (27.0-31.0); MEAN CORPUSCULAR HGB CONC 33.2 % (33.0-36.5); MEAN CORPUSCULAR VOLUME 85.1 FL (78-98); MEAN PLATELET VOLUME 6.7 FL (7.4-10.4); MONOCYTES # (AUTO) 1.2 X10'3 (0-0.9); MONOCYTES % (AUTO) 9.4 % (2-12); NEUTROPHILS # (AUTO) 9.7 X10'3 (1.8-7.7); NEUTROPHILS % (AUTO) 74.5 % (42-75); PLATELET COUNT 478 X10'3 (140-440); RED BLOOD COUNT 4.01 X10'6 (4.20-5.60); RED CELL DISTRIBUTION WIDTH 15.4 % (11.5-14.5)
[2017-03-08] MEDS: mineral oil/petrolatum ophthal oint EACHEYE SCH ×4 (02:00→19:44)
[2017-03-08 02:04] LABS: INR 1.2 INR; PARTIAL THROMBOPLASTIN TIME 24 SECONDS (22-32); PROTHROMBIN TIME 12.2 SECONDS (9.0-12.0)
[2017-03-08 02:07] LABS: ALANINE AMINOTRANSFERASE 64 U/L (12-78); ALBUMIN 2.4 G/DL (3.4-5.0); ALBUMIN/GLOBULIN RATIO 0.6 (1.1-1.5); ALKALINE PHOSPHATASE 64 IU/L (46-116); ANION GAP 11 (8-16); ASPARTATE AMINO TRANSFERASE 32 U/L (10-37); BILIRUBIN,TOTAL 0.5 MG/DL (0.1-1.0); BLOOD UREA NITROGEN 16 MG/DL (7-18); BUN/CREATININE RATIO 26.7 (6.6-38.0); CALCIUM 8.9 MG/DL (8.5-10.1); CHLORIDE 118 MMOL/L (99-107); GLUCOSE 195 MG/DL (70-104); MAGNESIUM 1.9 MG/DL (1.5-2.4); PHOSPHORUS 2.1 MG/DL (2.3-4.5); POTASSIUM 3.7 MMOL/L (3.5-5.1); TOTAL CARBON DIOXIDE 27.4 MMOL/L (24-32); TOTAL PROTEIN 6.6 G/DL (6.4-8.2); eGFR > 90 ML/MIN
[2017-03-08 02:10] LABS: SODIUM 156 MMOL/L (135-145)
[2017-03-08] MEDS ORDERED: dextrose 5%-1/2 normal saline 1,000 ML IV SCH (03:01)
[2017-03-08] MEDS: ipratropium/albuterol 3ml nebule NEB SCH ×6 (03:18→23:24)
[2017-03-08] MEDS: enalaprilat dihydrate 2.5mg/2ml vial IV PRN ×2 (05:55→10:27)
[2017-03-08] MEDS: levoTHYROXINE 100mcg tablet PO SCH (07:26)
[2017-03-08] MEDS: lactobacillus rhamnosus 10,000 MMU CELLS/CAPSULE PO SCH ×2 (07:26→17:09)
[2017-03-08] MEDS: quetiapine 100mg tablet PO SCH ×3 (07:26→21:35)
[2017-03-08] MEDS: oxcarbazepine 150mg tablet PO SCH ×2 (07:27→19:44)
[2017-03-08] MEDS: risperiDONE 0.5mg tablet PO SCH ×2 (07:27→19:44)
[2017-03-08] MEDS: cefTRIAXone 1g/NS 100ml IVPB 100 ML IV SCH ×2 (07:32→19:43)
[2017-03-08] MEDS: enoxaparin 40mg/0.4ml syringe SUBCUT SCH (07:32)
[2017-03-08] MEDS: pantoprazole 40 MG vial IV SCH ×2 (07:41→19:43)
[2017-03-08] MEDS: K, MAG and/or Phos replacement - Verify level? MC SCH (07:41)
[2017-03-08] MEDS: insulin Lispro (HumaLOG) vial - multi-dose SQ SCH ×3 (08:25→20:16)
[2017-03-08] MEDS: dextrose 5%-water 1,000 ML IV SCH (09:06)
[2017-03-08] MEDS: metoprolol succinate 25mg (24-HOUR) SR. Tablet PO SCH (09:36)
[2017-03-08] MEDS: lisinopril 20mg tablet PO SCH (09:36)
[2017-03-08] MEDS: nystatin 500,000 unit/5ML UD oral suspension PO SCH ×2 (13:12→21:35)
[2017-03-08] MEDS: polyethylene glycol 3350 17gm powd pack PO SCH ×2 (21:00)
[2017-03-08] MEDS: atorvastatin 20mg tablet PO SCH (21:35)
[2017-03-09] VITALS (22 sets, daily range): BP systolic 115–187; BP diastolic 52–101
[2017-03-09] MEDS: dextrose 5%-water 1,000 ML IV SCH (00:12)
[2017-03-09] MEDS: niCARDipine/sod cl 20mg/200ml 200 ML IV SCH ×3 (00:30→08:30)
[2017-03-09] MEDS: ipratropium/albuterol 3ml nebule NEB SCH ×6 (03:32→22:49)
[2017-03-09] MEDS: enalaprilat dihydrate 2.5mg/2ml vial IV PRN (03:42)
[2017-03-09] MEDS: mineral oil/petrolatum ophthal oint EACHEYE SCH ×2 (03:42→08:00)
[2017-03-09] MEDS: hydrocortisone sod succ/PF 100mg/2ml inj. IV SCH ×3 (03:42→14:15)
[2017-03-09 03:46] LABS: BASOPHILS % (AUTO) 0.1 % (0-1); EOSINOPHILS # (AUTO) 0.2 X10'3 (0-0.9); EOSINOPHILS % (AUTO) 1.2 % (0-6); HEMATOCRIT 34.3 % (35.0-45.0); HEMOGLOBIN 11.3 g/dl (12.0-16.0); LYMPHOCYTES # (AUTO) 2.8 X10'3 (1.1-4.8); LYMPHOCYTES % (AUTO) 22.1 % (21-51); MEAN CORPUSCULAR VOLUME 84.9 FL (78-98); MEAN PLATELET VOLUME 6.7 FL (7.4-10.4); NEUTROPHILS # (AUTO) 8.6 X10'3 (1.8-7.7); NEUTROPHILS % (AUTO) 68.6 % (42-75); PLATELET COUNT 494 X10'3 (140-440); RED BLOOD COUNT 4.04 X10'6 (4.20-5.60); RED CELL DISTRIBUTION WIDTH 15.7 % (11.5-14.5); WHITE BLOOD COUNT 12.5 X10'3 (4.5-11.0)
[2017-03-09 03:58] LABS: INR 1.2 INR; PARTIAL THROMBOPLASTIN TIME 23 SECONDS (22-32); PROTHROMBIN TIME 12.2 SECONDS (9.0-12.0)
[2017-03-09 04:04] LABS: ALANINE AMINOTRANSFERASE 60 U/L (12-78); ALBUMIN 2.3 G/DL (3.4-5.0); ALBUMIN/GLOBULIN RATIO 0.6 (1.1-1.5); ALKALINE PHOSPHATASE 59 IU/L (46-116); ANION GAP 7 (8-16); ASPARTATE AMINO TRANSFERASE 29 U/L (10-37); BILIRUBIN,TOTAL 0.5 MG/DL (0.1-1.0); BLOOD UREA NITROGEN 15 MG/DL (7-18); CALCIUM 8.8 MG/DL (8.5-10.1); CHLORIDE 115 MMOL/L (99-107); GLUCOSE 244 MG/DL (70-104); MAGNESIUM 1.8 MG/DL (1.5-2.4); PHOSPHORUS 2.7 MG/DL (2.3-4.5); SODIUM 153 MMOL/L (135-145); TOTAL CARBON DIOXIDE 30.8 MMOL/L (24-32); TOTAL PROTEIN 6.2 G/DL (6.4-8.2); eGFR > 90 ML/MIN
[2017-03-09 04:07] LABS: POTASSIUM 2.8 MMOL/L (3.5-5.1)
[2017-03-09] MEDS: hydrALAZINE 20mg/ml inj. IV PRN (05:48)
[2017-03-09] MEDS: potassium Cl 40MEQ/250ML bag 250 ML IV PRN ×2 (06:53→08:51)
[2017-03-09] MEDS: Potassium Cl inj 40 MEQ in dextrose 5%-water 980 ML IV SCH ×2 (06:53→15:42)
[2017-03-09] MEDS: K, MAG and/or Phos replacement - Verify level? MC SCH (08:00)
[2017-03-09] MEDS: nystatin 500,000 unit/5ML UD oral suspension PO SCH ×3 (08:23→20:25)
[2017-03-09] MEDS: oxcarbazepine 150mg tablet PO SCH ×2 (08:23→19:39)
[2017-03-09] MEDS: risperiDONE 0.5mg tablet PO SCH ×2 (08:23→19:39)
[2017-03-09] MEDS: pantoprazole 40 MG vial IV SCH (08:23)
[2017-03-09] MEDS: lisinopril 20mg tablet PO SCH (08:23)
[2017-03-09] MEDS: metoprolol succinate 25mg (24-HOUR) SR. Tablet PO SCH (08:23)
[2017-03-09] MEDS: levoTHYROXINE 100mcg tablet PO SCH (08:23)
[2017-03-09] MEDS: lactobacillus rhamnosus 10,000 MMU CELLS/CAPSULE PO SCH ×2 (08:23→17:30)
[2017-03-09] MEDS: quetiapine 100mg tablet PO SCH ×3 (08:23→20:25)
[2017-03-09] MEDS: cefTRIAXone 1g/NS 100ml IVPB 100 ML IV SCH (08:24)
[2017-03-09] MEDS: enoxaparin 40mg/0.4ml syringe SUBCUT SCH (08:24)
[2017-03-09] MEDS: insulin Lispro (HumaLOG) vial - multi-dose SQ SCH ×3 (08:55→20:57)
[2017-03-09] MEDS: piperacillin/tazo 3.375gm/50ml 50 ML IV SCH ×2 (17:34→19:39)
[2017-03-09] MEDS: polyethylene glycol 3350 17gm powd pack PO SCH (20:25)
[2017-03-09] MEDS: atorvastatin 20mg tablet PO SCH (20:25)
[2017-03-10] VITALS (21 sets, daily range): BP systolic 131–178; BP diastolic 0–89
[2017-03-10] MEDS: Potassium Cl inj 40 MEQ in dextrose 5%-water 980 ML IV SCH ×4 (02:08→19:25)
[2017-03-10] MEDS: piperacillin/tazo 3.375gm/50ml 50 ML IV SCH ×2 (02:08→07:52)
[2017-03-10] MEDS: ipratropium/albuterol 3ml nebule NEB SCH ×4 (02:59→21:02)
[2017-03-10 03:46] LABS: BASOPHILS % (AUTO) 0.1 % (0-1); EOSINOPHILS # (AUTO) 0.2 X10'3 (0-0.9); EOSINOPHILS % (AUTO) 2.4 % (0-6); HEMATOCRIT 29.8 % (35.0-45.0); HEMOGLOBIN 9.7 g/dl (12.0-16.0); LYMPHOCYTES # (AUTO) 3.2 X10'3 (1.1-4.8); LYMPHOCYTES % (AUTO) 31.7 % (21-51); MEAN CORPUSCULAR HEMOGLOBIN 27.8 PG (27.0-31.0); MEAN CORPUSCULAR HGB CONC 32.7 % (33.0-36.5); MEAN CORPUSCULAR VOLUME 85.1 FL (78-98); MEAN PLATELET VOLUME 6.8 FL (7.4-10.4); MONOCYTES # (AUTO) 0.8 X10'3 (0-0.9); MONOCYTES % (AUTO) 8.3 % (2-12); NEUTROPHILS # (AUTO) 5.7 X10'3 (1.8-7.7); NEUTROPHILS % (AUTO) 57.5 % (42-75); PLATELET COUNT 391 X10'3 (140-440); RED CELL DISTRIBUTION WIDTH 15.2 % (11.5-14.5)
[2017-03-10 03:59] LABS: INR 1.2 INR; PARTIAL THROMBOPLASTIN TIME 24 SECONDS (22-32); PROTHROMBIN TIME 12.1 SECONDS (9.0-12.0)
[2017-03-10 04:15] LABS: ALANINE AMINOTRANSFERASE 47 U/L (12-78); ALBUMIN 1.9 G/DL (3.4-5.0); ALBUMIN/GLOBULIN RATIO 0.6 (1.1-1.5); ALKALINE PHOSPHATASE 63 IU/L (46-116); ANION GAP 7 (8-16); ASPARTATE AMINO TRANSFERASE 20 U/L (10-37); BILIRUBIN,TOTAL 0.4 MG/DL (0.1-1.0); BLOOD UREA NITROGEN 12 MG/DL (7-18); BUN/CREATININE RATIO 18.5 (6.6-38.0); CALCIUM 7.7 MG/DL (8.5-10.1); CHLORIDE 113 MMOL/L (99-107); CREATININE 0.65 MG/DL (0.40-0.90); GLUCOSE 232 MG/DL (70-104); MAGNESIUM 1.4 MG/DL (1.5-2.4); PHOSPHORUS 2.7 MG/DL (2.3-4.5); POTASSIUM 3.5 MMOL/L (3.5-5.1); SODIUM 147 MMOL/L (135-145); eGFR 89 ML/MIN
[2017-03-10] MEDS: K, MAG and/or Phos replacement - Verify level? MC SCH (07:33)
[2017-03-10] MEDS: lactobacillus rhamnosus 10,000 MMU CELLS/CAPSULE PO SCH ×2 (07:50→17:02)
[2017-03-10] MEDS: risperiDONE 0.5mg tablet PO SCH ×2 (07:50→19:24)
[2017-03-10] MEDS: lisinopril 20mg tablet PO SCH (07:50)
[2017-03-10] MEDS: metoprolol succinate 25mg (24-HOUR) SR. Tablet PO SCH (07:50)
[2017-03-10] MEDS: quetiapine 100mg tablet PO SCH ×3 (07:51→21:54)
[2017-03-10] MEDS: levoTHYROXINE 100mcg tablet PO SCH (07:51)
[2017-03-10] MEDS: oxcarbazepine 150mg tablet PO SCH ×2 (07:51→19:24)
[2017-03-10] MEDS: nystatin 500,000 unit/5ML UD oral suspension PO SCH ×3 (07:52→21:54)
[2017-03-10] MEDS: enoxaparin 40mg/0.4ml syringe SUBCUT SCH (07:52)
[2017-03-10] MEDS: ondansetron/PF 4mg/2ml inj IV PRN ×2 (08:11→17:02)
[2017-03-10] MEDS: insulin Lispro (HumaLOG) vial - multi-dose SQ SCH ×3 (08:18→19:14)
[2017-03-10] MEDS ORDERED: ipratropium/albuterol 3ml nebule NEB PRN (11:00)
[2017-03-10] MEDS: Protein Smoothie (high protein) 240ml (8oz) cup PO SCH ×2 (13:00→18:00)
[2017-03-10] MEDS: LACTOSE-FREE FOOD 237ML (BOOST) PO SCH ×2 (13:00→18:30)
[2017-03-10] MEDS: cefepime 1GM/NS ADD-VANTAGE 100 ML IV SCH (16:27)
[2017-03-10] MEDS ORDERED: POTASSIUM 40MEQ/500ML NS ***PERIPHERAL LINE REPLACE IV PRN (20:25)
[2017-03-10] MEDS: atorvastatin 20mg tablet PO SCH (21:54)
[2017-03-10] MEDS: polyethylene glycol 3350 17gm powd pack PO SCH (21:54)
[2017-03-11] MEDS: cefepime 1GM/NS ADD-VANTAGE 100 ML IV SCH ×3 (00:46→16:26)
[2017-03-11 03:00] VITALS: BP 138/71
[2017-03-11] MEDS: ipratropium/albuterol 3ml nebule NEB SCH ×4 (03:57→20:30)
[2017-03-11 06:00] VITALS: BP 152/70
[2017-03-11] MEDS: Potassium Cl inj 40 MEQ in dextrose 5%-water 980 ML IV SCH ×3 (06:36→16:26)
[2017-03-11] MEDS: metoprolol succinate 25mg (24-HOUR) SR. Tablet PO SCH (07:51)
[2017-03-11] MEDS: levoTHYROXINE 100mcg tablet PO SCH (07:51)
[2017-03-11] MEDS: lisinopril 20mg tablet PO SCH (07:52)
[2017-03-11] MEDS: risperiDONE 0.5mg tablet PO SCH ×2 (07:52→20:14)
[2017-03-11] MEDS: oxcarbazepine 150mg tablet PO SCH ×2 (07:52→20:14)
[2017-03-11] MEDS: quetiapine 100mg tablet PO SCH ×3 (07:52→20:14)
[2017-03-11] MEDS: nystatin 500,000 unit/5ML UD oral suspension PO SCH ×3 (07:52→20:15)
[2017-03-11] MEDS: lactobacillus rhamnosus 10,000 MMU CELLS/CAPSULE PO SCH ×2 (07:52→17:35)
[2017-03-11] MEDS: enoxaparin 40mg/0.4ml syringe SUBCUT SCH (07:59)
[2017-03-11] MEDS: Protein Smoothie (high protein) 240ml (8oz) cup PO SCH ×3 (08:00→18:06)
[2017-03-11] MEDS: K, MAG and/or Phos replacement - Verify level? MC SCH (08:00)
[2017-03-11] MEDS: LACTOSE-FREE FOOD 237ML (BOOST) PO SCH ×3 (08:00→18:06)
[2017-03-11] MEDS: insulin Lispro (HumaLOG) vial - multi-dose SQ SCH ×2 (08:47→14:00)
[2017-03-11 09:39] LABS: BASOPHILS % (AUTO) 0.2 % (0-1); EOSINOPHILS # (AUTO) 0.4 X10'3 (0-0.9); EOSINOPHILS % (AUTO) 3.4 % (0-6); HEMATOCRIT 36.3 % (35.0-45.0); HEMOGLOBIN 11.9 g/dl (12.0-16.0); LYMPHOCYTES # (AUTO) 1.9 X10'3 (1.1-4.8); LYMPHOCYTES % (AUTO) 16.8 % (21-51); MEAN CORPUSCULAR HEMOGLOBIN 27.7 PG (27.0-31.0); MEAN CORPUSCULAR HGB CONC 32.8 % (33.0-36.5); MEAN CORPUSCULAR VOLUME 84.6 FL (78-98); MEAN PLATELET VOLUME 6.6 FL (7.4-10.4); MONOCYTES # (AUTO) 0.5 X10'3 (0-0.9); MONOCYTES % (AUTO) 4.4 % (2-12); NEUTROPHILS # (AUTO) 8.4 X10'3 (1.8-7.7); NEUTROPHILS % (AUTO) 75.2 % (42-75); PLATELET COUNT 386 X10'3 (140-440); RED BLOOD COUNT 4.29 X10'6 (4.20-5.60); RED CELL DISTRIBUTION WIDTH 14.9 % (11.5-14.5); WHITE BLOOD COUNT 11.2 X10'3 (4.5-11.0)
[2017-03-11 09:50] LABS: PARTIAL THROMBOPLASTIN TIME 26 SECONDS (22-32); PROTHROMBIN TIME 10.7 SECONDS (9.0-12.0)
[2017-03-11 09:53] LABS: ALANINE AMINOTRANSFERASE 49 U/L (12-78); ALBUMIN 2.2 G/DL (3.4-5.0); ALBUMIN/GLOBULIN RATIO 0.6 (1.1-1.5); ALKALINE PHOSPHATASE 78 IU/L (46-116); ANION GAP 5 (8-16); ASPARTATE AMINO TRANSFERASE 19 U/L (10-37); BILIRUBIN,TOTAL 0.4 MG/DL (0.1-1.0); BLOOD UREA NITROGEN 9 MG/DL (7-18); BUN/CREATININE RATIO 11.7 (6.6-38.0); CHLORIDE 100 MMOL/L (99-107); CREATININE 0.77 MG/DL (0.40-0.90); GLUCOSE 322 MG/DL (70-104); MAGNESIUM 1.4 MG/DL (1.5-2.4); PHOSPHORUS 3.6 MG/DL (2.3-4.5); POTASSIUM 4.5 MMOL/L (3.5-5.1); SODIUM 135 MMOL/L (135-145); TOTAL CARBON DIOXIDE 29.7 MMOL/L (24-32); TOTAL PROTEIN 5.9 G/DL (6.4-8.2); eGFR 73 ML/MIN
[2017-03-11 11:00] VITALS: BP 133/65
[2017-03-11] MEDS ORDERED: magnesium 2GM in 50ml NS 50 ML IV PRN (12:35)
[2017-03-11] MEDS ORDERED: magnesium 4gm in 100ml NS 100 ML IV PRN (12:35)
[2017-03-11] MEDS: magnesium Cl slow-release 64mg tablet PO PRN ×2 (12:50→20:14)
[2017-03-11 15:00] VITALS: BP 133/53
[2017-03-11 18:00] VITALS: BP 135/82
[2017-03-11] MEDS: atorvastatin 20mg tablet PO SCH (20:14)
[2017-03-11] MEDS: polyethylene glycol 3350 17gm powd pack PO SCH (20:41)
[2017-03-11 22:00] VITALS: BP 122/68
[2017-03-12] MEDS: cefepime 1GM/NS ADD-VANTAGE 100 ML IV SCH ×3 (00:33→16:38)
[2017-03-12 02:00] VITALS: BP 159/77
[2017-03-12] MEDS: ipratropium/albuterol 3ml nebule NEB SCH ×4 (03:53→20:26)
[2017-03-12 06:00] VITALS: BP 138/83
[2017-03-12] MEDS: quetiapine 100mg tablet PO SCH ×4 (08:00→21:09)
[2017-03-12] MEDS: oxcarbazepine 150mg tablet PO SCH ×2 (08:00→21:09)
[2017-03-12] MEDS: K, MAG and/or Phos replacement - Verify level? MC SCH (08:00)
[2017-03-12] MEDS: nystatin 500,000 unit/5ML UD oral suspension PO SCH ×3 (08:08→21:08)
[2017-03-12] MEDS: lactobacillus rhamnosus 10,000 MMU CELLS/CAPSULE PO SCH ×2 (08:08→16:38)
[2017-03-12] MEDS: lisinopril 20mg tablet PO SCH (08:09)
[2017-03-12] MEDS: metoprolol succinate 25mg (24-HOUR) SR. Tablet PO SCH (08:19)
[2017-03-12] MEDS: levoTHYROXINE 100mcg tablet PO SCH (08:19)
[2017-03-12] MEDS: risperiDONE 0.5mg tablet PO SCH ×2 (08:19→21:08)
[2017-03-12] MEDS: LACTOSE-FREE FOOD 237ML (BOOST) PO SCH ×3 (08:22→18:01)
[2017-03-12] MEDS: enoxaparin 40mg/0.4ml syringe SUBCUT SCH (08:24)
[2017-03-12] MEDS: Protein Smoothie (high protein) 240ml (8oz) cup PO SCH ×3 (08:25→18:01)
[2017-03-12] MEDS: insulin Lispro (HumaLOG) vial - multi-dose SQ SCH ×3 (09:27→19:32)
[2017-03-12 11:00] VITALS: BP 128/78
[2017-03-12 15:00] VITALS: BP 109/73
[2017-03-12 19:00] VITALS: BP 125/60
[2017-03-12] MEDS: polyethylene glycol 3350 17gm powd pack PO SCH (21:09)
[2017-03-12] MEDS: atorvastatin 20mg tablet PO SCH (21:09)
[2017-03-12 23:00] VITALS: BP 150/66
[2017-03-13] MEDS: cefepime 1GM/NS ADD-VANTAGE 100 ML IV SCH ×4 (00:30→23:57)
[2017-03-13 03:00] VITALS: BP 129/64
[2017-03-13] MEDS: ipratropium/albuterol 3ml nebule NEB SCH ×4 (04:03→21:00)
[2017-03-13 06:00] VITALS: BP 120/65
[2017-03-13 06:33] LABS: BASOPHILS # (AUTO) 0.1 X10'3 (0-0.2); BASOPHILS % (AUTO) 0.4 % (0-1); EOSINOPHILS # (AUTO) 0.6 X10'3 (0-0.9); EOSINOPHILS % (AUTO) 3.9 % (0-6); HEMATOCRIT 37.5 % (35.0-45.0); HEMOGLOBIN 12.4 g/dl (12.0-16.0); LYMPHOCYTES # (AUTO) 2.8 X10'3 (1.1-4.8); LYMPHOCYTES % (AUTO) 19.1 % (21-51); MEAN CORPUSCULAR HEMOGLOBIN 27.8 PG (27.0-31.0); MEAN CORPUSCULAR VOLUME 84.3 FL (78-98); MEAN PLATELET VOLUME 7.3 FL (7.4-10.4); MONOCYTES # (AUTO) 0.7 X10'3 (0-0.9); NEUTROPHILS # (AUTO) 10.5 X10'3 (1.8-7.7); NEUTROPHILS % (AUTO) 71.6 % (42-75); PLATELET COUNT 398 X10'3 (140-440); RED BLOOD COUNT 4.45 X10'6 (4.20-5.60); WHITE BLOOD COUNT 14.7 X10'3 (4.5-11.0)
[2017-03-13 06:44] LABS: PARTIAL THROMBOPLASTIN TIME 24 SECONDS (22-32); PROTHROMBIN TIME 10.5 SECONDS (9.0-12.0)
[2017-03-13 06:47] LABS: ALANINE AMINOTRANSFERASE 52 U/L (12-78); ALBUMIN 2.4 G/DL (3.4-5.0); ALBUMIN/GLOBULIN RATIO 0.6 (1.1-1.5); ALKALINE PHOSPHATASE 75 IU/L (46-116); ANION GAP 6 (8-16); ASPARTATE AMINO TRANSFERASE 25 U/L (10-37); BILIRUBIN,TOTAL 0.5 MG/DL (0.1-1.0); BLOOD UREA NITROGEN 13 MG/DL (7-18); BUN/CREATININE RATIO 22.4 (6.6-38.0); CALCIUM 9.3 MG/DL (8.5-10.1); CHLORIDE 103 MMOL/L (99-107); CREATININE 0.58 MG/DL (0.40-0.90); GLUCOSE 200 MG/DL (70-104); MAGNESIUM 1.6 MG/DL (1.5-2.4); PHOSPHORUS 2.9 MG/DL (2.3-4.5); POTASSIUM 3.9 MMOL/L (3.5-5.1); SODIUM 137 MMOL/L (135-145); TOTAL CARBON DIOXIDE 27.7 MMOL/L (24-32); TOTAL PROTEIN 6.4 G/DL (6.4-8.2); eGFR > 90 ML/MIN
[2017-03-13] MEDS: enoxaparin 40mg/0.4ml syringe SUBCUT SCH (07:26)
[2017-03-13] MEDS: lactobacillus rhamnosus 10,000 MMU CELLS/CAPSULE PO SCH ×2 (07:27→17:24)
[2017-03-13] MEDS: metoprolol succinate 25mg (24-HOUR) SR. Tablet PO SCH (07:28)
[2017-03-13] MEDS: risperiDONE 0.5mg tablet PO SCH ×3 (07:28→21:38)
[2017-03-13] MEDS: quetiapine 100mg tablet PO SCH ×3 (07:28→21:29)
[2017-03-13] MEDS: nystatin 500,000 unit/5ML UD oral suspension PO SCH ×3 (07:28→21:31)
[2017-03-13] MEDS: levoTHYROXINE 100mcg tablet PO SCH (07:28)
[2017-03-13] MEDS: lisinopril 20mg tablet PO SCH (07:28)
[2017-03-13] MEDS: LACTOSE-FREE FOOD 237ML (BOOST) PO SCH ×3 (07:29→18:07)
[2017-03-13] MEDS: oxcarbazepine 150mg tablet PO SCH ×3 (07:30→21:37)
[2017-03-13] MEDS: Protein Smoothie (high protein) 240ml (8oz) cup PO SCH ×3 (07:33→18:07)
[2017-03-13] MEDS: K, MAG and/or Phos replacement - Verify level? MC SCH (08:00)
[2017-03-13] MEDS: insulin Lispro (HumaLOG) vial - multi-dose SQ SCH ×4 (09:20→22:09)
[2017-03-13 11:00] VITALS: BP 94/65
[2017-03-13 15:00] VITALS: BP 95/55
[2017-03-13 19:00] VITALS: BP 152/75
[2017-03-13] MEDS: ondansetron/PF 4mg/2ml inj IV PRN (20:23)
[2017-03-13] MEDS: polyethylene glycol 3350 17gm powd pack PO SCH (21:00)
[2017-03-13] MEDS: atorvastatin 20mg tablet PO SCH (21:30)
[2017-03-13 23:00] VITALS: BP 153/60
[2017-03-14] VITALS (8 sets, daily range): BP systolic 95–117; BP diastolic 36–57
[2017-03-14] MEDS: ipratropium/albuterol 3ml nebule NEB SCH ×4 (03:00→21:00)
[2017-03-14] MEDS: acetaminophen 325mg/10.15ml oral unit dose solution PO PRN (03:24)
[2017-03-14 05:55] LABS: BASOPHILS # (AUTO) 0.1 X10'3 (0-0.2); BASOPHILS % (AUTO) 0.2 % (0-1); EOSINOPHILS # (AUTO) 0.6 X10'3 (0-0.9); HEMATOCRIT 37.1 % (35.0-45.0); HEMOGLOBIN 12.5 g/dl (12.0-16.0); LYMPHOCYTES # (AUTO) 2.1 X10'3 (1.1-4.8); LYMPHOCYTES % (AUTO) 7.3 % (21-51); MEAN CORPUSCULAR HEMOGLOBIN 28.4 PG (27.0-31.0); MEAN CORPUSCULAR HGB CONC 33.7 % (33.0-36.5); MEAN CORPUSCULAR VOLUME 84.5 FL (78-98); MEAN PLATELET VOLUME 7.6 FL (7.4-10.4); MONOCYTES # (AUTO) 1.9 X10'3 (0-0.9); MONOCYTES % (AUTO) 6.7 % (2-12); NEUTROPHILS # (AUTO) 24.1 X10'3 (1.8-7.7); NEUTROPHILS % (AUTO) 83.8 % (42-75); PLATELET COUNT 411 X10'3 (140-440); RED CELL DISTRIBUTION WIDTH 15.3 % (11.5-14.5)
[2017-03-14 06:04] LABS: WHITE BLOOD COUNT 28.7 X10'3 (4.5-11.0)
[2017-03-14 06:07] LABS: PARTIAL THROMBOPLASTIN TIME 25 SECONDS (22-32); PROTHROMBIN TIME 10.4 SECONDS (9.0-12.0)
[2017-03-14 06:36] LABS: ALANINE AMINOTRANSFERASE 45 U/L (12-78); ALBUMIN 2.3 G/DL (3.4-5.0); ALBUMIN/GLOBULIN RATIO 0.6 (1.1-1.5); ALKALINE PHOSPHATASE 83 IU/L (46-116); ANION GAP 10 (8-16); ASPARTATE AMINO TRANSFERASE 54 U/L (10-37); BILIRUBIN,TOTAL 0.5 MG/DL (0.1-1.0); BLOOD UREA NITROGEN 17 MG/DL (7-18); BUN/CREATININE RATIO 19.1 (6.6-38.0); CALCIUM 9.3 MG/DL (8.5-10.1); CHLORIDE 98 MMOL/L (99-107); CREATININE 0.89 MG/DL (0.40-0.90); GLUCOSE 224 MG/DL (70-104); MAGNESIUM 1.6 MG/DL (1.5-2.4); PHOSPHORUS 3.6 MG/DL (2.3-4.5); SODIUM 134 MMOL/L (135-145); TOTAL CARBON DIOXIDE 26.4 MMOL/L (24-32); TOTAL PROTEIN 6.4 G/DL (6.4-8.2); eGFR 62 ML/MIN
[2017-03-14 07:05] LABS: PLATELET ESTIMATE NORMAL; TOTAL CELLS COUNTED 100
[2017-03-14] MEDS: lactobacillus rhamnosus 10,000 MMU CELLS/CAPSULE PO SCH ×2 (07:30→17:21)
[2017-03-14] MEDS: LACTOSE-FREE FOOD 237ML (BOOST) PO SCH ×3 (08:00→18:00)
[2017-03-14] MEDS: Protein Smoothie (high protein) 240ml (8oz) cup PO SCH ×3 (08:00→18:00)
[2017-03-14] MEDS: K, MAG and/or Phos replacement - Verify level? MC SCH (08:00)
[2017-03-14] MEDS: ondansetron/PF 4mg/2ml inj IV PRN (08:50)
[2017-03-14] MEDS: enoxaparin 40mg/0.4ml syringe SUBCUT SCH (09:04)
[2017-03-14] MEDS: cefepime 1GM/NS ADD-VANTAGE 100 ML IV SCH ×3 (09:06→23:25)
[2017-03-14] MEDS: quetiapine 100mg tablet PO SCH ×3 (09:11→20:27)
[2017-03-14] MEDS: lisinopril 20mg tablet PO SCH (09:13)
[2017-03-14] MEDS: metoprolol succinate 25mg (24-HOUR) SR. Tablet PO SCH (09:14)
[2017-03-14] MEDS: oxcarbazepine 150mg tablet PO SCH ×2 (09:16→20:26)
[2017-03-14] MEDS: risperiDONE 0.5mg tablet PO SCH ×2 (09:17→20:26)
[2017-03-14] MEDS: levoTHYROXINE 100mcg tablet PO SCH (09:17)
[2017-03-14] MEDS: nystatin 500,000 unit/5ML UD oral suspension PO SCH ×3 (09:21→20:26)
[2017-03-14] MEDS: insulin Lispro (HumaLOG) vial - multi-dose SQ SCH ×2 (09:25→13:19)
[2017-03-14 11:15] LABS: CLARITY,URINE CLOUDY (Clear); COLOR,URINE YELLOW (Yellow); GLUCOSE, URINE NEGATIVE (Neg); KETONES,URINE NEGATIVE (Neg); LEUKOCYTE ESTERASE ,URINE MODERATE (Neg); NITRITES, URINE NEGATIVE (Neg); OCCULT BLOOD,URINE LARGE (Neg); PROTEIN,URINE 100 mg/dl (Neg); UROBILINOGEN,URINE 0.2 E.U/dL (0.2-1.0)
[2017-03-14 11:17] LABS: UA COLLECTION TYPE FOLEY CATH
[2017-03-14 11:20] LABS: RBC,URINE 20-50 /HPF (0-2); SQUAMOUS EPITHELIAL CELL,UR MODERATE /LPF (FEW); WBC,URINE TNTC /HPF (0-4)
[2017-03-14 11:21] LABS: BACTERIA,URINE 2+ /HPF (Neg)
[2017-03-14] MEDS: Insulin Detemir pen SQ SCH (20:25)
[2017-03-14] MEDS: atorvastatin 20mg tablet PO SCH (20:27)
[2017-03-14] MEDS: polyethylene glycol 3350 17gm powd pack PO SCH (20:27)
[2017-03-15 03:00] VITALS: BP 141/56
[2017-03-15] MEDS: ipratropium/albuterol 3ml nebule NEB SCH ×4 (03:00→20:48)
[2017-03-15 05:36] LABS: PARTIAL THROMBOPLASTIN TIME 27 SECONDS (22-32); PROTHROMBIN TIME 10.5 SECONDS (9.0-12.0)
[2017-03-15 05:42] LABS: ALANINE AMINOTRANSFERASE 53 U/L (12-78); ALBUMIN 2.1 G/DL (3.4-5.0); ALBUMIN/GLOBULIN RATIO 0.5 (1.1-1.5); ALKALINE PHOSPHATASE 80 IU/L (46-116); ANION GAP 9 (8-16); ASPARTATE AMINO TRANSFERASE 49 U/L (10-37); BILIRUBIN,TOTAL 0.3 MG/DL (0.1-1.0); BLOOD UREA NITROGEN 23 MG/DL (7-18); BUN/CREATININE RATIO 29.5 (6.6-38.0); CALCIUM 8.8 MG/DL (8.5-10.1); CHLORIDE 98 MMOL/L (99-107); CREATININE 0.78 MG/DL (0.40-0.90); GLUCOSE 184 MG/DL (70-104); MAGNESIUM 1.5 MG/DL (1.5-2.4); PHOSPHORUS 3.8 MG/DL (2.3-4.5); POTASSIUM 3.7 MMOL/L (3.5-5.1); SODIUM 134 MMOL/L (135-145); TOTAL CARBON DIOXIDE 27.5 MMOL/L (24-32); TOTAL PROTEIN 6.1 G/DL (6.4-8.2); eGFR 72 ML/MIN
[2017-03-15 06:00] VITALS: BP 131/62
[2017-03-15 06:08] LABS: BASOPHILS # (AUTO) 0.1 X10'3 (0-0.2); BASOPHILS % (AUTO) 0.4 % (0-1); EOSINOPHILS # (AUTO) 0.3 X10'3 (0-0.9); EOSINOPHILS % (AUTO) 1.3 % (0-6); HEMATOCRIT 32.5 % (35.0-45.0); HEMOGLOBIN 10.8 g/dl (12.0-16.0); LYMPHOCYTES # (AUTO) 2.2 X10'3 (1.1-4.8); LYMPHOCYTES % (AUTO) 11.4 % (21-51); MEAN CORPUSCULAR HEMOGLOBIN 28.1 PG (27.0-31.0); MEAN CORPUSCULAR HGB CONC 33.2 % (33.0-36.5); MEAN CORPUSCULAR VOLUME 84.5 FL (78-98); MEAN PLATELET VOLUME 7.9 FL (7.4-10.4); MONOCYTES # (AUTO) 1.6 X10'3 (0-0.9); MONOCYTES % (AUTO) 8.2 % (2-12); NEUTROPHILS # (AUTO) 15.3 X10'3 (1.8-7.7); NEUTROPHILS % (AUTO) 78.7 % (42-75); PLATELET COUNT 396 X10'3 (140-440); RED BLOOD COUNT 3.85 X10'6 (4.20-5.60); RED CELL DISTRIBUTION WIDTH 15.3 % (11.5-14.5); WHITE BLOOD COUNT 19.5 X10'3 (4.5-11.0)
[2017-03-15] MEDS: Protein Smoothie (high protein) 240ml (8oz) cup PO SCH ×4 (08:00→18:51)
[2017-03-15] MEDS: K, MAG and/or Phos replacement - Verify level? MC SCH (08:00)
[2017-03-15] MEDS: LACTOSE-FREE FOOD 237ML (BOOST) PO SCH ×5 (08:00→18:52)
[2017-03-15] MEDS: risperiDONE 0.5mg tablet PO SCH ×2 (09:14→19:54)
[2017-03-15] MEDS: oxcarbazepine 150mg tablet PO SCH ×2 (09:14→19:55)
[2017-03-15] MEDS: metoprolol succinate 25mg (24-HOUR) SR. Tablet PO SCH (09:14)
[2017-03-15] MEDS: lisinopril 20mg tablet PO SCH (09:15)
[2017-03-15] MEDS: quetiapine 100mg tablet PO SCH ×3 (09:15→19:54)
[2017-03-15] MEDS: levoTHYROXINE 100mcg tablet PO SCH (09:15)
[2017-03-15] MEDS: cefepime 1GM/NS ADD-VANTAGE 100 ML IV SCH ×2 (09:16→15:35)
[2017-03-15] MEDS: lactobacillus rhamnosus 10,000 MMU CELLS/CAPSULE PO SCH ×2 (09:16→17:22)
[2017-03-15] MEDS: enoxaparin 40mg/0.4ml syringe SUBCUT SCH (09:17)
[2017-03-15] MEDS: insulin Lispro (HumaLOG) vial - multi-dose SQ SCH ×2 (09:30→13:33)
[2017-03-15] MEDS: nystatin 500,000 unit/5ML UD oral suspension PO SCH ×3 (09:34→19:55)
[2017-03-15 11:00] VITALS: BP 110/45
[2017-03-15 15:30] VITALS: BP 139/65
[2017-03-15 19:00] VITALS: BP 134/79
[2017-03-15] MEDS: atorvastatin 20mg tablet PO SCH (19:54)
[2017-03-15] MEDS: polyethylene glycol 3350 17gm powd pack PO SCH ×2 (19:55→20:05)
[2017-03-15] MEDS: Insulin Detemir pen SQ SCH (21:31)
[2017-03-15 23:00] VITALS: BP 150/43
[2017-03-16] MEDS: cefepime 1GM/NS ADD-VANTAGE 100 ML IV SCH ×3 (00:10→16:55)
[2017-03-16] MEDS: ipratropium/albuterol 3ml nebule NEB SCH ×3 (02:46→21:00)
[2017-03-16 03:00] VITALS: BP 102/46
[2017-03-16 05:38] LABS: BASOPHILS # (AUTO) 0.1 X10'3 (0-0.2); BASOPHILS % (AUTO) 0.5 % (0-1); EOSINOPHILS # (AUTO) 0.3 X10'3 (0-0.9); EOSINOPHILS % (AUTO) 2.2 % (0-6); HEMATOCRIT 30.4 % (35.0-45.0); HEMOGLOBIN 10.1 g/dl (12.0-16.0); LYMPHOCYTES # (AUTO) 2.8 X10'3 (1.1-4.8); MEAN CORPUSCULAR HEMOGLOBIN 27.8 PG (27.0-31.0); MEAN CORPUSCULAR HGB CONC 33.3 % (33.0-36.5); MEAN CORPUSCULAR VOLUME 83.5 FL (78-98); MEAN PLATELET VOLUME 7.4 FL (7.4-10.4); MONOCYTES # (AUTO) 1.1 X10'3 (0-0.9); MONOCYTES % (AUTO) 7.5 % (2-12); NEUTROPHILS # (AUTO) 10.5 X10'3 (1.8-7.7); NEUTROPHILS % (AUTO) 70.8 % (42-75); PLATELET COUNT 398 X10'3 (140-440); RED BLOOD COUNT 3.64 X10'6 (4.20-5.60); RED CELL DISTRIBUTION WIDTH 15.1 % (11.5-14.5); WHITE BLOOD COUNT 14.9 X10'3 (4.5-11.0)
[2017-03-16 06:07] LABS: PARTIAL THROMBOPLASTIN TIME 26 SECONDS (22-32); PROTHROMBIN TIME 10.6 SECONDS (9.0-12.0)
[2017-03-16 06:08] LABS: ALANINE AMINOTRANSFERASE 86 U/L (12-78); ALBUMIN/GLOBULIN RATIO 0.5 (1.1-1.5); ALKALINE PHOSPHATASE 77 IU/L (46-116); ANION GAP 5 (8-16); ASPARTATE AMINO TRANSFERASE 56 U/L (10-37); BILIRUBIN,TOTAL 0.3 MG/DL (0.1-1.0); BLOOD UREA NITROGEN 14 MG/DL (7-18); CALCIUM 8.5 MG/DL (8.5-10.1); CHLORIDE 100 MMOL/L (99-107); GLUCOSE 103 MG/DL (70-104); MAGNESIUM 1.5 MG/DL (1.5-2.4); PHOSPHORUS 2.9 MG/DL (2.3-4.5); POTASSIUM 3.6 MMOL/L (3.5-5.1); SODIUM 134 MMOL/L (135-145); TOTAL CARBON DIOXIDE 29.2 MMOL/L (24-32); eGFR > 90 ML/MIN
[2017-03-16] MEDS: K, MAG and/or Phos replacement - Verify level? MC SCH (08:00)
[2017-03-16] MEDS: LACTOSE-FREE FOOD 237ML (BOOST) PO SCH ×5 (08:00→18:00)
[2017-03-16] MEDS: nystatin 500,000 unit/5ML UD oral suspension PO SCH ×3 (09:05→20:54)
[2017-03-16] MEDS: risperiDONE 0.5mg tablet PO SCH ×2 (09:05→20:54)
[2017-03-16] MEDS: oxcarbazepine 150mg tablet PO SCH ×2 (09:05→20:54)
[2017-03-16] MEDS: levoTHYROXINE 100mcg tablet PO SCH (09:06)
[2017-03-16] MEDS: enoxaparin 40mg/0.4ml syringe SUBCUT SCH (09:06)
[2017-03-16] MEDS: quetiapine 100mg tablet PO SCH ×3 (09:06→20:54)
[2017-03-16] MEDS: lactobacillus rhamnosus 10,000 MMU CELLS/CAPSULE PO SCH ×2 (09:06→16:55)
[2017-03-16] MEDS: metoprolol succinate 25mg (24-HOUR) SR. Tablet PO SCH (09:07)
[2017-03-16] MEDS: lisinopril 20mg tablet PO SCH (09:07)
[2017-03-16 11:00] VITALS: BP 142/67
[2017-03-16] MEDS: Protein Smoothie (high protein) 240ml (8oz) cup PO SCH ×2 (12:43→18:00)
[2017-03-16 12:46] LABS: C DIFF ANTIGEN POSITIVE (NEGATIVE); C DIFF SPECIMEN=DIARRHEA? ACCEPTABLE; C DIFFICILE TOXINS A&B POSITIVE (Neg)
[2017-03-16] MEDS: insulin Lispro (HumaLOG) vial - multi-dose SQ SCH ×2 (13:09→18:51)
[2017-03-16] MEDS: vancomycin 125mg/5ml ORAL solution 5ml UD bottle PO SCH ×2 (14:43→20:54)
[2017-03-16 15:00] VITALS: BP 139/58
[2017-03-16 19:00] VITALS: BP 129/54
[2017-03-16] MEDS: atorvastatin 20mg tablet PO SCH (20:54)
[2017-03-16] MEDS: polyethylene glycol 3350 17gm powd pack PO SCH (21:00)
[2017-03-16] MEDS: Insulin Detemir pen SQ SCH (21:01)
[2017-03-16 23:00] VITALS: BP 128/47
[2017-03-17] MEDS: cefepime 1GM/NS ADD-VANTAGE 100 ML IV SCH (00:06)
[2017-03-17] MEDS: vancomycin 125mg/5ml ORAL solution 5ml UD bottle PO SCH ×4 (01:11→20:55)
[2017-03-17 03:00] VITALS: BP 119/53
[2017-03-17] MEDS: ipratropium/albuterol 3ml nebule NEB SCH (03:00)
[2017-03-17 06:00] VITALS: BP 105/50
[2017-03-17] MEDS ORDERED: ipratropium/albuterol 3ml nebule NEB PRN (06:15)
[2017-03-17 06:19] LABS: BASOPHILS # (AUTO) 0.1 X10'3 (0-0.2); BASOPHILS % (AUTO) 0.6 % (0-1); EOSINOPHILS # (AUTO) 0.2 X10'3 (0-0.9); EOSINOPHILS % (AUTO) 1.7 % (0-6); HEMATOCRIT 31.2 % (35.0-45.0); HEMOGLOBIN 10.4 g/dl (12.0-16.0); LYMPHOCYTES # (AUTO) 2.3 X10'3 (1.1-4.8); LYMPHOCYTES % (AUTO) 16.8 % (21-51); MEAN CORPUSCULAR HEMOGLOBIN 28.2 PG (27.0-31.0); MEAN CORPUSCULAR HGB CONC 33.5 % (33.0-36.5); MEAN CORPUSCULAR VOLUME 84.2 FL (78-98); MEAN PLATELET VOLUME 7.4 FL (7.4-10.4); MONOCYTES % (AUTO) 7.7 % (2-12); NEUTROPHILS # (AUTO) 9.8 X10'3 (1.8-7.7); NEUTROPHILS % (AUTO) 73.2 % (42-75); PLATELET COUNT 464 X10'3 (140-440); RED BLOOD COUNT 3.71 X10'6 (4.20-5.60); WHITE BLOOD COUNT 13.4 X10'3 (4.5-11.0)
[2017-03-17 06:25] LABS: PARTIAL THROMBOPLASTIN TIME 26 SECONDS (22-32); PROTHROMBIN TIME 10.1 SECONDS (9.0-12.0)
[2017-03-17 06:43] LABS: ALANINE AMINOTRANSFERASE 103 U/L (12-78); ALBUMIN 2.1 G/DL (3.4-5.0); ALBUMIN/GLOBULIN RATIO 0.5 (1.1-1.5); ALKALINE PHOSPHATASE 90 IU/L (46-116); ANION GAP 7 (8-16); ASPARTATE AMINO TRANSFERASE 53 U/L (10-37); BILIRUBIN,TOTAL 0.4 MG/DL (0.1-1.0); BLOOD UREA NITROGEN 10 MG/DL (7-18); BUN/CREATININE RATIO 21.7 (6.6-38.0); CALCIUM 8.7 MG/DL (8.5-10.1); CHLORIDE 103 MMOL/L (99-107); CREATININE 0.46 MG/DL (0.40-0.90); GLUCOSE 121 MG/DL (70-104); MAGNESIUM 1.4 MG/DL (1.5-2.4); PHOSPHORUS 2.9 MG/DL (2.3-4.5); POTASSIUM 3.9 MMOL/L (3.5-5.1); SODIUM 138 MMOL/L (135-145); TOTAL CARBON DIOXIDE 28.4 MMOL/L (24-32); TOTAL PROTEIN 6.2 G/DL (6.4-8.2); eGFR > 90 ML/MIN
[2017-03-17] MEDS: K, MAG and/or Phos replacement - Verify level? MC SCH (08:00)
[2017-03-17] MEDS: nystatin 500,000 unit/5ML UD oral suspension PO SCH ×3 (08:55→20:55)
[2017-03-17] MEDS: risperiDONE 0.5mg tablet PO SCH ×2 (08:55→20:55)
[2017-03-17] MEDS: levoTHYROXINE 100mcg tablet PO SCH (08:55)
[2017-03-17] MEDS: lactobacillus rhamnosus 10,000 MMU CELLS/CAPSULE PO SCH ×2 (08:55→17:33)
[2017-03-17] MEDS: metoprolol succinate 25mg (24-HOUR) SR. Tablet PO SCH (08:55)
[2017-03-17] MEDS: quetiapine 100mg tablet PO SCH ×3 (08:55→20:55)
[2017-03-17] MEDS: lisinopril 20mg tablet PO SCH (08:55)
[2017-03-17] MEDS: enoxaparin 40mg/0.4ml syringe SUBCUT SCH (08:55)
[2017-03-17] MEDS: LACTOSE-FREE FOOD 237ML (BOOST) PO SCH ×6 (08:56→17:35)
[2017-03-17] MEDS: Protein Smoothie (high protein) 240ml (8oz) cup PO SCH ×3 (08:56→17:34)
[2017-03-17] MEDS: oxcarbazepine 150mg tablet PO SCH ×2 (08:56→20:55)
[2017-03-17] MEDS: insulin Lispro (HumaLOG) vial - multi-dose SQ SCH ×2 (09:37→13:43)
[2017-03-17 15:00] VITALS: BP 123/61
[2017-03-17 19:00] VITALS: BP 116/49
[2017-03-17] MEDS: polyethylene glycol 3350 17gm powd pack PO SCH (20:49)
[2017-03-17] MEDS: atorvastatin 20mg tablet PO SCH (20:55)
[2017-03-17] MEDS: Insulin Detemir pen SQ SCH (21:30)
[2017-03-17] MEDS ORDERED: magnesium 4gm in 100ml NS 100 ML IV PRN (22:40)
[2017-03-17] MEDS ORDERED: magnesium 2GM in 50ml NS 50 ML IV PRN (22:40)
[2017-03-17 23:00] VITALS: BP 115/50
[2017-03-18] MEDS: vancomycin 125mg/5ml ORAL solution 5ml UD bottle PO SCH ×4 (04:30→19:41)
[2017-03-18 06:00] VITALS: BP 148/78
[2017-03-18 07:01] LABS: BASOPHILS % (AUTO) 0 % (0-1); EOSINOPHILS # (AUTO) 0.5 X10'3 (0-0.9); EOSINOPHILS % (AUTO) 3.3 % (0-6); HEMATOCRIT 35.3 % (35.0-45.0); HEMOGLOBIN 11.6 g/dl (12.0-16.0); LYMPHOCYTES # (AUTO) 2.3 X10'3 (1.1-4.8); LYMPHOCYTES % (AUTO) 16.9 % (21-51); MEAN CORPUSCULAR HEMOGLOBIN 27.8 PG (27.0-31.0); MEAN CORPUSCULAR HGB CONC 32.7 % (33.0-36.5); MEAN CORPUSCULAR VOLUME 85.1 FL (78-98); MEAN PLATELET VOLUME 7.5 FL (7.4-10.4); MONOCYTES # (AUTO) 0.5 X10'3 (0-0.9); MONOCYTES % (AUTO) 3.6 % (2-12); NEUTROPHILS # (AUTO) 10.5 X10'3 (1.8-7.7); NEUTROPHILS % (AUTO) 76.2 % (42-75); PLATELET COUNT 461 X10'3 (140-440); RED BLOOD COUNT 4.15 X10'6 (4.20-5.60); RED CELL DISTRIBUTION WIDTH 15.3 % (11.5-14.5); WHITE BLOOD COUNT 13.7 X10'3 (4.5-11.0)
[2017-03-18 07:44] LABS: ALANINE AMINOTRANSFERASE 83 U/L (12-78); ALBUMIN 2.2 G/DL (3.4-5.0); ALBUMIN/GLOBULIN RATIO 0.5 (1.1-1.5); ALKALINE PHOSPHATASE 106 IU/L (46-116); ANION GAP 6 (8-16); ASPARTATE AMINO TRANSFERASE 37 U/L (10-37); BILIRUBIN,TOTAL 0.3 MG/DL (0.1-1.0); BLOOD UREA NITROGEN 10 MG/DL (7-18); BUN/CREATININE RATIO 18.2 (6.6-38.0); CALCIUM 9.1 MG/DL (8.5-10.1); CHLORIDE 101 MMOL/L (99-107); CREATININE 0.55 MG/DL (0.40-0.90); GLUCOSE 141 MG/DL (70-104); MAGNESIUM 1.4 MG/DL (1.5-2.4); POTASSIUM 3.8 MMOL/L (3.5-5.1); SODIUM 134 MMOL/L (135-145); TOTAL CARBON DIOXIDE 26.9 MMOL/L (24-32); TOTAL PROTEIN 6.7 G/DL (6.4-8.2); eGFR > 90 ML/MIN
[2017-03-18] MEDS: LACTOSE-FREE FOOD 237ML (BOOST) PO SCH ×6 (08:00→18:51)
[2017-03-18] MEDS: Protein Smoothie (high protein) 240ml (8oz) cup PO SCH ×3 (08:00→18:51)
[2017-03-18] MEDS: risperiDONE 0.5mg tablet PO SCH ×2 (08:34→19:40)
[2017-03-18] MEDS: lactobacillus rhamnosus 10,000 MMU CELLS/CAPSULE PO SCH (08:34)
[2017-03-18] MEDS: nystatin 500,000 unit/5ML UD oral suspension PO SCH ×3 (08:34→21:00)
[2017-03-18] MEDS: oxcarbazepine 150mg tablet PO SCH ×2 (08:35→19:41)
[2017-03-18] MEDS: metoprolol succinate 25mg (24-HOUR) SR. Tablet PO SCH (08:35)
[2017-03-18] MEDS: lisinopril 20mg tablet PO SCH (08:35)
[2017-03-18] MEDS: levoTHYROXINE 100mcg tablet PO SCH (08:35)
[2017-03-18] MEDS: quetiapine 100mg tablet PO SCH ×3 (08:35→19:41)
[2017-03-18] MEDS: enoxaparin 40mg/0.4ml syringe SUBCUT SCH (08:36)
[2017-03-18] MEDS: K, MAG and/or Phos replacement - Verify level? MC SCH (08:38)
[2017-03-18] MEDS: insulin Lispro (HumaLOG) vial - multi-dose SQ SCH ×3 (09:23→19:44)
[2017-03-18] MEDS: polyethylene glycol 3350 17gm powd pack PO SCH (18:49)
[2017-03-18] MEDS: atorvastatin 20mg tablet PO SCH (19:40)
[2017-03-18] MEDS: magnesium Cl slow-release 64mg tablet PO PRN (19:41)
[2017-03-18 22:00] VITALS: BP 156/82
[2017-03-18] MEDS: Insulin Detemir pen SQ SCH (22:19)
[2017-03-19] MEDS: vancomycin 125mg/5ml ORAL solution 5ml UD bottle PO SCH ×4 (02:59→20:34)
[2017-03-19 05:00] VITALS: BP 153/82
[2017-03-19 06:50] LABS: BASOPHILS # (AUTO) 0.1 X10'3 (0-0.2); BASOPHILS % (AUTO) 0.7 % (0-1); EOSINOPHILS # (AUTO) 0.4 X10'3 (0-0.9); EOSINOPHILS % (AUTO) 3.9 % (0-6); HEMATOCRIT 31.1 % (35.0-45.0); HEMOGLOBIN 10.2 g/dl (12.0-16.0); LYMPHOCYTES # (AUTO) 2.5 X10'3 (1.1-4.8); LYMPHOCYTES % (AUTO) 25.7 % (21-51); MEAN CORPUSCULAR HEMOGLOBIN 27.8 PG (27.0-31.0); MEAN CORPUSCULAR HGB CONC 32.8 % (33.0-36.5); MEAN CORPUSCULAR VOLUME 84.6 FL (78-98); MONOCYTES # (AUTO) 0.4 X10'3 (0-0.9); MONOCYTES % (AUTO) 4.5 % (2-12); NEUTROPHILS # (AUTO) 6.3 X10'3 (1.8-7.7); NEUTROPHILS % (AUTO) 65.2 % (42-75); PLATELET COUNT 480 X10'3 (140-440); RED BLOOD COUNT 3.67 X10'6 (4.20-5.60); RED CELL DISTRIBUTION WIDTH 15.2 % (11.5-14.5); WHITE BLOOD COUNT 9.7 X10'3 (4.5-11.0)
[2017-03-19] MEDS: LACTOBACILLUS RHAMNOSUS GG 15 billion unit sprinkle caps PO SCH (07:30)
[2017-03-19 07:38] LABS: ALANINE AMINOTRANSFERASE 62 U/L (12-78); ALBUMIN 1.9 G/DL (3.4-5.0); ALBUMIN/GLOBULIN RATIO 0.5 (1.1-1.5); ALKALINE PHOSPHATASE 103 IU/L (46-116); ANION GAP 9 (8-16); ASPARTATE AMINO TRANSFERASE 23 U/L (10-37); BILIRUBIN,TOTAL 0.2 MG/DL (0.1-1.0); BLOOD UREA NITROGEN 7 MG/DL (7-18); CALCIUM 8.3 MG/DL (8.5-10.1); CHLORIDE 103 MMOL/L (99-107); CREATININE 0.54 MG/DL (0.40-0.90); GLUCOSE 135 MG/DL (70-104); MAGNESIUM 1.2 MG/DL (1.5-2.4); POTASSIUM 4.2 MMOL/L (3.5-5.1); SODIUM 138 MMOL/L (135-145); TOTAL CARBON DIOXIDE 25.6 MMOL/L (24-32); TOTAL PROTEIN 6.1 G/DL (6.4-8.2); eGFR > 90 ML/MIN
[2017-03-19] MEDS: LACTOSE-FREE FOOD 237ML (BOOST) PO SCH ×6 (08:00→18:00)
[2017-03-19] MEDS: K, MAG and/or Phos replacement - Verify level? MC SCH (08:00)
[2017-03-19] MEDS: enoxaparin 40mg/0.4ml syringe SUBCUT SCH (08:00)
[2017-03-19] MEDS: Protein Smoothie (high protein) 240ml (8oz) cup PO SCH ×3 (08:00→18:00)
[2017-03-19] MEDS: oxcarbazepine 150mg tablet PO SCH ×2 (08:51→20:34)
[2017-03-19] MEDS: metoprolol succinate 25mg (24-HOUR) SR. Tablet PO SCH (08:51)
[2017-03-19] MEDS: levoTHYROXINE 100mcg tablet PO SCH (08:51)
[2017-03-19] MEDS: risperiDONE 0.5mg tablet PO SCH ×2 (08:51→20:34)
[2017-03-19] MEDS: quetiapine 100mg tablet PO SCH ×3 (08:51→20:34)
[2017-03-19] MEDS: nystatin 500,000 unit/5ML UD oral suspension PO SCH ×3 (08:51→20:34)
[2017-03-19] MEDS: lisinopril 20mg tablet PO SCH (08:52)
[2017-03-19] MEDS: nystatin 15 GM powder TP SCH ×3 (10:44→20:35)
[2017-03-19] MEDS: magnesium Cl slow-release 64mg tablet PO PRN (11:45)
[2017-03-19] MEDS: insulin Lispro (HumaLOG) vial - multi-dose SQ SCH ×2 (14:00→19:27)
[2017-03-19] MEDS: polyethylene glycol 3350 17gm powd pack PO SCH (20:34)
[2017-03-19] MEDS: atorvastatin 20mg tablet PO SCH (20:34)
[2017-03-19] MEDS: Insulin Detemir pen SQ SCH (20:52)
[2017-03-19 22:00] VITALS: BP 155/78
[2017-03-20] MEDS: magnesium Cl slow-release 64mg tablet PO PRN ×2 (01:01→09:35)
[2017-03-20] MEDS: vancomycin 125mg/5ml ORAL solution 5ml UD bottle PO SCH ×4 (01:01→20:40)
[2017-03-20 06:48] LABS: BASOPHILS # (AUTO) 0.1 X10'3 (0-0.2); EOSINOPHILS # (AUTO) 0.3 X10'3 (0-0.9); EOSINOPHILS % (AUTO) 3.5 % (0-6); HEMATOCRIT 34.8 % (35.0-45.0); HEMOGLOBIN 11.7 g/dl (12.0-16.0); LYMPHOCYTES # (AUTO) 3.2 X10'3 (1.1-4.8); LYMPHOCYTES % (AUTO) 34.5 % (21-51); MEAN CORPUSCULAR HEMOGLOBIN 28.3 PG (27.0-31.0); MEAN CORPUSCULAR HGB CONC 33.7 % (33.0-36.5); MEAN CORPUSCULAR VOLUME 83.8 FL (78-98); MEAN PLATELET VOLUME 7.3 FL (7.4-10.4); MONOCYTES # (AUTO) 0.8 X10'3 (0-0.9); MONOCYTES % (AUTO) 8.8 % (2-12); NEUTROPHILS # (AUTO) 4.9 X10'3 (1.8-7.7); NEUTROPHILS % (AUTO) 52.2 % (42-75); PLATELET COUNT 538 X10'3 (140-440); RED BLOOD COUNT 4.15 X10'6 (4.20-5.60); RED CELL DISTRIBUTION WIDTH 15.4 % (11.5-14.5); WHITE BLOOD COUNT 9.3 X10'3 (4.5-11.0)
[2017-03-20 07:07] LABS: ALANINE AMINOTRANSFERASE 74 U/L (12-78); ALBUMIN 2.2 G/DL (3.4-5.0); ALBUMIN/GLOBULIN RATIO 0.5 (1.1-1.5); ALKALINE PHOSPHATASE 98 IU/L (46-116); ANION GAP 6 (8-16); ASPARTATE AMINO TRANSFERASE 51 U/L (10-37); BILIRUBIN,TOTAL 0.3 MG/DL (0.1-1.0); BLOOD UREA NITROGEN 7 MG/DL (7-18); BUN/CREATININE RATIO 13.2 (6.6-38.0); CHLORIDE 101 MMOL/L (99-107); CREATININE 0.53 MG/DL (0.40-0.90); GLUCOSE 136 MG/DL (70-104); MAGNESIUM 1.4 MG/DL (1.5-2.4); POTASSIUM 4.7 MMOL/L (3.5-5.1); SODIUM 135 MMOL/L (135-145); TOTAL PROTEIN 6.8 G/DL (6.4-8.2); eGFR > 90 ML/MIN
[2017-03-20] MEDS: K, MAG and/or Phos replacement - Verify level? MC SCH (08:00)
[2017-03-20] MEDS: LACTOSE-FREE FOOD 237ML (BOOST) PO SCH ×6 (08:00→18:00)
[2017-03-20] MEDS: Protein Smoothie (high protein) 240ml (8oz) cup PO SCH ×3 (08:00→18:00)
[2017-03-20] MEDS: nystatin 15 GM powder TP SCH ×3 (09:00→20:42)
[2017-03-20] MEDS: nystatin 500,000 unit/5ML UD oral suspension PO SCH ×3 (09:31→20:39)
[2017-03-20] MEDS: metoprolol succinate 25mg (24-HOUR) SR. Tablet PO SCH (09:32)
[2017-03-20] MEDS: enoxaparin 40mg/0.4ml syringe SUBCUT SCH (09:32)
[2017-03-20] MEDS: risperiDONE 0.5mg tablet PO SCH ×2 (09:34→20:40)
[2017-03-20] MEDS: oxcarbazepine 150mg tablet PO SCH ×2 (09:34→20:41)
[2017-03-20] MEDS: quetiapine 100mg tablet PO SCH ×3 (09:35→20:39)
[2017-03-20] MEDS: LACTOBACILLUS RHAMNOSUS GG 15 billion unit sprinkle caps PO SCH (09:35)
[2017-03-20] MEDS: levoTHYROXINE 100mcg tablet PO SCH (09:35)
[2017-03-20] MEDS: lisinopril 20mg tablet PO SCH (09:35)
[2017-03-20] MEDS: insulin Lispro (HumaLOG) vial - multi-dose SQ SCH ×3 (09:43→18:58)
[2017-03-20 10:00] VITALS: BP 160/96
[2017-03-20 18:00] VITALS: BP 159/95
[2017-03-20] MEDS: atorvastatin 20mg tablet PO SCH (20:39)
[2017-03-20] MEDS: polyethylene glycol 3350 17gm powd pack PO SCH (20:40)
[2017-03-20] MEDS: dextrose ORAL solution 15 GM/59 ML bottle PO PRN ×2 (20:56→21:16)
[2017-03-20] MEDS: Insulin Detemir pen SQ SCH (21:00)
[2017-03-20 22:00] VITALS: BP 132/67
[2017-03-21] MEDS: vancomycin 125mg/5ml ORAL solution 5ml UD bottle PO SCH ×4 (02:19→22:04)
[2017-03-21] MEDS: oxcarbazepine 150mg tablet PO SCH ×2 (08:36→22:20)
[2017-03-21] MEDS: quetiapine 100mg tablet PO SCH ×3 (08:36→22:04)
[2017-03-21] MEDS: levoTHYROXINE 100mcg tablet PO SCH (08:36)
[2017-03-21] MEDS: metoprolol succinate 25mg (24-HOUR) SR. Tablet PO SCH (08:36)
[2017-03-21] MEDS: nystatin 15 GM powder TP SCH ×3 (08:36→22:31)
[2017-03-21] MEDS: lisinopril 20mg tablet PO SCH (08:36)
[2017-03-21] MEDS: enoxaparin 40mg/0.4ml syringe SUBCUT SCH (08:37)
[2017-03-21] MEDS: risperiDONE 0.5mg tablet PO SCH ×2 (08:37→22:05)
[2017-03-21] MEDS: LACTOSE-FREE FOOD 237ML (BOOST) PO SCH ×6 (08:39→18:00)
[2017-03-21] MEDS: nystatin 500,000 unit/5ML UD oral suspension PO SCH ×3 (08:46→22:18)
[2017-03-21] MEDS: LACTOBACILLUS RHAMNOSUS GG 15 billion unit sprinkle caps PO SCH (08:46)
[2017-03-21] MEDS: insulin Lispro (HumaLOG) vial - multi-dose SQ SCH ×3 (09:01→19:37)
[2017-03-21 10:00] VITALS: BP 105/62
[2017-03-21] MEDS: K, MAG and/or Phos replacement - Verify level? MC SCH (11:16)
[2017-03-21] MEDS: Protein Smoothie (high protein) 240ml (8oz) cup PO SCH ×3 (11:16→18:00)
[2017-03-21 22:00] VITALS: BP 136/86
[2017-03-21] MEDS: atorvastatin 20mg tablet PO SCH (22:05)
[2017-03-21] MEDS: polyethylene glycol 3350 17gm powd pack PO SCH (22:06)
[2017-03-21] MEDS: Insulin Detemir pen SQ SCH (22:28)
[2017-03-22] MEDS: vancomycin 125mg/5ml ORAL solution 5ml UD bottle PO SCH ×4 (03:14→20:14)
[2017-03-22 06:54] VITALS: BP 147/69
[2017-03-22] MEDS: K, MAG and/or Phos replacement - Verify level? MC SCH (08:00)
[2017-03-22] MEDS: Protein Smoothie (high protein) 240ml (8oz) cup PO SCH ×2 (08:00→13:14)
[2017-03-22] MEDS: LACTOSE-FREE FOOD 237ML (BOOST) PO SCH ×4 (08:00→13:14)
[2017-03-22] MEDS: metoprolol succinate 25mg (24-HOUR) SR. Tablet PO SCH (08:40)
[2017-03-22] MEDS: LACTOBACILLUS RHAMNOSUS GG 15 billion unit sprinkle caps PO SCH (08:40)
[2017-03-22] MEDS: lisinopril 20mg tablet PO SCH (08:40)
[2017-03-22] MEDS: levoTHYROXINE 100mcg tablet PO SCH (08:40)
[2017-03-22] MEDS: quetiapine 100mg tablet PO SCH ×3 (08:40→20:14)
[2017-03-22] MEDS: risperiDONE 0.5mg tablet PO SCH ×2 (08:40→20:14)
[2017-03-22] MEDS: oxcarbazepine 150mg tablet PO SCH ×2 (08:41→20:14)
[2017-03-22] MEDS: nystatin 500,000 unit/5ML UD oral suspension PO SCH ×3 (08:42→21:00)
[2017-03-22] MEDS: nystatin 15 GM powder TP SCH ×3 (08:43→21:00)
[2017-03-22] MEDS: enoxaparin 40mg/0.4ml syringe SUBCUT SCH (08:43)
[2017-03-22] MEDS: insulin Lispro (HumaLOG) vial - multi-dose SQ SCH ×3 (09:54→20:04)
[2017-03-22 11:26] VITALS: BP 138/83
[2017-03-22] MEDS ORDERED: VANC5VIA PO (13:10)
[2017-03-22 18:00] VITALS: BP 136/75
[2017-03-22] MEDS: polyethylene glycol 3350 17gm powd pack PO SCH (20:14)
[2017-03-22] MEDS: atorvastatin 20mg tablet PO SCH (20:14)
[2017-03-22 22:00] VITALS: BP 156/80
[2017-03-22] MEDS: Insulin Detemir pen SQ SCH (22:42)
[2017-03-23] MEDS: vancomycin 125mg/5ml ORAL solution 5ml UD bottle PO SCH ×3 (03:11→13:54)
[2017-03-23 06:00] VITALS: BP 147/56
[2017-03-23] MEDS: LACTOBACILLUS RHAMNOSUS GG 15 billion unit sprinkle caps PO SCH (07:11)
[2017-03-23] MEDS: quetiapine 100mg tablet PO SCH ×2 (07:12→13:51)
[2017-03-23] MEDS: nystatin 500,000 unit/5ML UD oral suspension PO SCH ×2 (07:12→13:52)
[2017-03-23] MEDS: levoTHYROXINE 100mcg tablet PO SCH (07:12)
[2017-03-23] MEDS: metoprolol succinate 25mg (24-HOUR) SR. Tablet PO SCH (07:12)
[2017-03-23] MEDS: lisinopril 20mg tablet PO SCH (07:13)
[2017-03-23] MEDS: oxcarbazepine 150mg tablet PO SCH (07:13)
[2017-03-23] MEDS: enoxaparin 40mg/0.4ml syringe SUBCUT SCH (07:14)
[2017-03-23] MEDS: risperiDONE 0.5mg tablet PO SCH (07:14)
[2017-03-23] MEDS: nystatin 15 GM powder TP SCH ×2 (07:15→13:53)
[2017-03-23] MEDS: K, MAG and/or Phos replacement - Verify level? MC SCH (08:00)
[2017-03-23 10:00] VITALS: BP 127/76
[2017-03-23] MEDS: insulin Lispro (HumaLOG) vial - multi-dose SQ SCH (13:51)
== END 2017-03-23 15:15 | DRG 710 ==
LOC: ER 01:37 → ED HOLD 04:22 → SUR 3N 06:40 → CICU 2S 14:24 → PCU 3S 03-10 20:10 → ORTHO 4S 03-18 00:53
PROVIDERS: ADMIT Family Medicine; ATTEND Internal Medicine
PROC: 5A1945Z Respiratory Ventilation, 24-96 Consecutive Hours (ICD-10-PCS; 2017-03-03)
PROC: 0TCB8ZZ Extirpation of Matter from Bladder, Via Natural or Artificial Opening Endoscopic (ICD-10-PCS; 2017-03-03)
PROC: 0T788DZ Dilation of Bilateral Ureters with Intraluminal Device, Via Natural or Artificial Opening Endoscopic (ICD-10-PCS; 2017-03-03)
PROC: 02HV33Z Insertion of Infusion Device into Superior Vena Cava, Percutaneous Approach (ICD-10-PCS; 2017-03-03)
PROC: B548ZZA Ultrasonography of Superior Vena Cava, Guidance (ICD-10-PCS; 2017-03-03)
PROC: 0TC78ZZ Extirpation of Matter from Left Ureter, Via Natural or Artificial Opening Endoscopic (ICD-10-PCS; principal; 2017-03-03 16:36)
DX: A41.9 Sepsis, unspecified organism (principal); J96.90 Respiratory failure, unspecified, unspecified whether with hypoxia or hypercapnia; G93.41 Metabolic encephalopathy; N17.9 Acute kidney failure, unspecified; A04.72 Enterocolitis due to Clostridium difficile, not specified as recurrent; J44.9 Chronic obstructive pulmonary disease, unspecified; E87.8 Other disorders of electrolyte and fluid balance, not elsewhere classified; E11.65 Type 2 diabetes mellitus with hyperglycemia; K56.7 Ileus, unspecified; N13.6 Pyonephrosis; E87.1 Hypo-osmolality and hyponatremia; F20.9 Schizophrenia, unspecified; B96.4 Proteus (mirabilis) (morganii) as the cause of diseases classified elsewhere; B96.5 Pseudomonas (aeruginosa) (mallei) (pseudomallei) as the cause of diseases classified elsewhere; E86.0 Dehydration; I10 Essential (primary) hypertension; N21.0 Calculus in bladder; Z79.82 Long term (current) use of aspirin; Z79.899 Other long term (current) drug therapy; Z79.4 Long term (current) use of insulin; Z87.442 Personal history of urinary calculi
CPT/HCPCS: 36415; 36600; 71010; 74000; 74176; 76000; 80053; 80156; 80202; 81001; 82140; 82550; 82803; 82810; 82948; 83036; 83605; 83690; 83735; 84100; 84132; 84145; 84439; 84443; 84484; 85018; 85025; 85610; 85651; 85730; 86140; 87040; 87070; 87077; 87088; 87186; 87324; 87449; 88300; 92616; 93005; 94002; 94003; 94640; 94760; 96361; 96374; 97110; 97116; 97161; 97530; 97535; 99285; A4315; A4402; A4649; A6212; A6213; A6257; A6258; A6449; A7015; C1751; C1758; C1769; C2625; C9113; J0360; J0692; J0696; J1200; J1630; J1650; J1720; J1940; J2001; J2060; J2212; J2250; J2370; J2405; J2543; J3010; J3370; J3480; J3490; J7030; J7070; J7120; Q0175; Q9967

== ENCOUNTER 2017-04-09 11:25 | Inpatient (IN) | payer MEDICARE, MEDICAID ==
[~2017-04-09] VITALS: Ht 177.8 cm; Wt 93.2 kg
[~2017-04-09 11:25] MED LIST changes: +ACET-2119 PO; -ACET650T78 PO; +CAPT25TA3 PO; +INSU100V9 SQ; +LISI-600 PO; -LISI-604 PO; +LORA-269 PO; +MAGN400C PO; -MAGN400T39 PO; +NYSPWD TP; -OXYB15TA PO; +OXYB5TAB11 PO; -RISE5TAB PO; +RISP1TAB13 PO; +VANC5VIA PO
[2017-04-09] MEDS ORDERED: normal saline 1000ML IV soln IVB ONE (11:40)
[2017-04-09 12:50] LABS: BASOPHILS # (AUTO) 0.1 X10'3 (0-0.2); BASOPHILS % (AUTO) 0.5 % (0-1); EOSINOPHILS # (AUTO) 0.2 X10'3 (0-0.9); EOSINOPHILS % (AUTO) 1.2 % (0-6); HEMATOCRIT 35.5 % (35.0-45.0); HEMOGLOBIN 12.4 g/dl (12.0-16.0); LYMPHOCYTES # (AUTO) 2.6 X10'3 (1.1-4.8); LYMPHOCYTES % (AUTO) 17.1 % (21-51); MEAN CORPUSCULAR HEMOGLOBIN 28.7 PG (27.0-31.0); MEAN CORPUSCULAR HGB CONC 35.1 % (33.0-36.5); MEAN CORPUSCULAR VOLUME 81.7 FL (78-98); MEAN PLATELET VOLUME 5.9 FL (7.4-10.4); MONOCYTES # (AUTO) 1.3 X10'3 (0-0.9); MONOCYTES % (AUTO) 8.1 % (2-12); NEUTROPHILS # (AUTO) 11.3 X10'3 (1.8-7.7); NEUTROPHILS % (AUTO) 73.1 % (42-75); PLATELET COUNT 454 X10'3 (140-440); RED BLOOD COUNT 4.35 X10'6 (4.20-5.60); RED CELL DISTRIBUTION WIDTH 15.3 % (11.5-14.5); WHITE BLOOD COUNT 15.4 X10'3 (4.5-11.0)
[2017-04-09 12:58] LABS: CLARITY,URINE CLOUDY (Clear); COLOR,URINE AMBER (Yellow); GLUCOSE, URINE NEGATIVE (Neg); KETONES,URINE NEGATIVE (Neg); LEUKOCYTE ESTERASE ,URINE MODERATE (Neg); NITRITES, URINE POSITIVE (Neg); OCCULT BLOOD,URINE LARGE (Neg); PH,URINE 8.5 (4.8-8.0); PROTEIN,URINE >=300 mg/dl (Neg); UROBILINOGEN,URINE 0.2 E.U/dL (0.2-1.0)
[2017-04-09 13:04] LABS: UA COLLECTION TYPE STRAIGHT CATH
[2017-04-09 13:06] LABS: RBC,URINE 50-100 /HPF (0-2)
[2017-04-09 13:07] LABS: BACTERIA,URINE FEW /HPF (Neg); MUCUS STRANDS MANY /LPF (Neg); SQUAMOUS EPITHELIAL CELL,UR NONE SEEN /LPF (FEW); TRIPLE PHOSPHATE CRYST 1+ /HPF (NEGATIVE)
[2017-04-09 13:11] LABS: ALANINE AMINOTRANSFERASE 26 U/L (12-78); ALBUMIN 2.9 G/DL (3.4-5.0); ALBUMIN/GLOBULIN RATIO 0.7 (1.1-1.5); ALKALINE PHOSPHATASE 68 IU/L (46-116); ANION GAP 7 (8-16); ASPARTATE AMINO TRANSFERASE 14 U/L (10-37); BILIRUBIN,TOTAL 0.4 MG/DL (0.1-1.0); BLOOD UREA NITROGEN 12 MG/DL (7-18); BUN/CREATININE RATIO 17.1 (6.6-38.0); CHLORIDE 85 MMOL/L (99-107); GLUCOSE 174 MG/DL (70-104); LIPASE 156 U/L (73-393); POTASSIUM 4.1 MMOL/L (3.5-5.1); SODIUM 122 MMOL/L (135-145); TOTAL CARBON DIOXIDE 29.7 MMOL/L (24-32); TOTAL PROTEIN 7.2 G/DL (6.4-8.2); eGFR 82 ML/MIN
[2017-04-09] MEDS ORDERED: cefTRIAXone 1g/NS 100ml IVPB 100 ML IV ONE (13:20)
[2017-04-09] MEDS ORDERED: CefTRIAXone/D5W-Rocephin 1gm 50 ML IV ONE (13:22)
[2017-04-09] MEDS ORDERED: piperacillin/tazo 3.375gm/50ml 50 ML IV ONE (13:27)
[2017-04-09 13:35] LABS: ANISOCYTOSIS FEW; PLATELET ESTIMATE INCREASED; TOTAL CELLS COUNTED 100; TOXIC GRANULATION 1+; TOXIC VACUOLATION FEW
[2017-04-09] MEDS ORDERED: ondansetron/PF 4mg/2ml inj IV PRN (14:40)
[2017-04-09] MEDS ORDERED: mag hydrox/Alum hydrox/simeth 30ml oral suspension PO PRN (14:40)
[2017-04-09] MEDS ORDERED: acetaminophen 325mg tablet PO PRN (14:40)
[2017-04-09] MEDS ORDERED: magnesium hydroxide 30ml (MOM) UD suspension PO PRN (14:40)
[2017-04-09] MEDS ORDERED: ARIP5TAB4 PO (15:53)
[2017-04-09] MEDS ORDERED: VIT500LI PO (16:19)
[2017-04-09] MEDS ORDERED: OXYB5TAB11 PO (16:19)
[2017-04-09] MEDS ORDERED: MAGN400T6 PO (16:19)
[2017-04-09] MEDS ORDERED: VANC1VIA21 PO (16:19)
[2017-04-09] MEDS ORDERED: FENO48TA15 PO (16:19)
[2017-04-09] MEDS ORDERED: OXCA600T PO (16:19)
[2017-04-09] MEDS ORDERED: ASPI-1265 PO (16:19)
[2017-04-09] MEDS: meropenem inj 1 GM in normal saline 100ml IV soln 100 ML IV SCH (16:35)
[2017-04-09] MEDS: normal saline 1000ml 1,000 ML IV SCH (17:47)
[2017-04-09] MEDS ORDERED: ASCORBATE CA PO SCH (20:00)
[2017-04-09] MEDS ORDERED: ASCORB SOD PO SCH (20:00)
[2017-04-09] MEDS ORDERED: non-formulary drug (Oxcarbazepine 1 TAB) PO SCH (20:00)
[2017-04-09] MEDS ORDERED: RISPERIDONE PO SCH (20:00)
[2017-04-09] MEDS ORDERED: VIT C PO SCH (20:00)
[2017-04-09] MEDS ORDERED: [UNRECOGNIZED DRUG - OTHER] PO SCH (20:00)
[2017-04-09] MEDS ORDERED: non-formulary drug (Quetiapine Fumarate (Seroquel) 1 TAB) PO SCH (21:00)
[2017-04-09] MEDS ORDERED: PERPHENAZINE PO SCH (21:00)
[2017-04-09 21:15] VITALS: BP 133/68
[2017-04-09] MEDS: atorvastatin 20mg tablet PO SCH (22:08)
[2017-04-09] MEDS: LORazepam 0.5 MG tablet PO SCH (22:08)
[2017-04-09] MEDS: oxybutynin 5mg tablet PO SCH (22:08)
[2017-04-09] MEDS: magnesium oxide 400mg tablet PO SCH (22:09)
[2017-04-09] MEDS: aripiprazole 5mg tablet PO SCH (22:09)
[2017-04-09] MEDS: ascorbic acid 500mg tablet PO SCH (22:09)
[2017-04-09] MEDS: vancomycin 125mg/5ml ORAL solution 5ml UD bottle PO SCH (22:10)
[2017-04-09] MEDS: quetiapine 100mg tablet PO SCH (22:10)
[2017-04-09] MEDS: heparin, porcine 5000 units/ml vial SQ SCH (22:11)
[2017-04-09] MEDS: risperiDONE 0.5mg tablet PO SCH (22:12)
[2017-04-09] MEDS: oxcarbazepine 150mg tablet PO SCH (22:15)
[2017-04-09] MEDS: trihexyphenidyl HCL 5 MG tablet PO SCH (22:20)
[2017-04-10] VITALS: BP 134/72
[2017-04-10] MEDS: meropenem inj 1 GM in normal saline 100ml IV soln 100 ML IV SCH ×2 (00:07→08:37)
[2017-04-10] MEDS: normal saline 1000ml 1,000 ML IV SCH ×3 (02:37→21:25)
[2017-04-10 05:16] LABS: BASOPHILS % (AUTO) 0.4 % (0-1); EOSINOPHILS # (AUTO) 0.4 X10'3 (0-0.9); EOSINOPHILS % (AUTO) 3.8 % (0-6); HEMATOCRIT 28.7 % (35.0-45.0); HEMOGLOBIN 9.9 g/dl (12.0-16.0); LYMPHOCYTES # (AUTO) 1.8 X10'3 (1.1-4.8); LYMPHOCYTES % (AUTO) 18.5 % (21-51); MEAN CORPUSCULAR HEMOGLOBIN 28.1 PG (27.0-31.0); MEAN CORPUSCULAR HGB CONC 34.5 % (33.0-36.5); MEAN CORPUSCULAR VOLUME 81.4 FL (78-98); MEAN PLATELET VOLUME 5.6 FL (7.4-10.4); MONOCYTES % (AUTO) 10.7 % (2-12); NEUTROPHILS # (AUTO) 6.3 X10'3 (1.8-7.7); NEUTROPHILS % (AUTO) 66.6 % (42-75); PLATELET COUNT 417 X10'3 (140-440); RED BLOOD COUNT 3.52 X10'6 (4.20-5.60); WHITE BLOOD COUNT 9.5 X10'3 (4.5-11.0)
[2017-04-10 05:23] LABS: ALBUMIN 2.1 G/DL (3.4-5.0); ANION GAP 7 (8-16); BLOOD UREA NITROGEN 10 MG/DL (7-18); BUN/CREATININE RATIO 16.7 (6.6-38.0); CHLORIDE 94 MMOL/L (99-107); GLUCOSE 123 MG/DL (70-104); POTASSIUM 4.1 MMOL/L (3.5-5.1); SODIUM 127 MMOL/L (135-145); TOTAL CARBON DIOXIDE 25.9 MMOL/L (24-32); eGFR > 90 ML/MIN
[2017-04-10] MEDS ORDERED: vitamin B comp w/Vit. C tab 1 TAB TABLET PO SCH (08:00)
[2017-04-10] MEDS ORDERED: non-formulary drug (Polyethylene Glycol 3350 (Miralax) 17 GM) PO SCH (08:00)
[2017-04-10] MEDS ORDERED: non-formulary drug (Metoprolol Succinate* (Toprol Xl*) 1 TAB) PO SCH (08:00)
[2017-04-10 08:20] VITALS: BP 126/68
[2017-04-10] MEDS: ascorbic acid 500mg tablet PO SCH ×2 (08:36→19:46)
[2017-04-10] MEDS: aspirin 81mg tab.chew PO SCH (08:36)
[2017-04-10] MEDS: levoTHYROXINE 100mcg tablet PO SCH (08:36)
[2017-04-10] MEDS: heparin, porcine 5000 units/ml vial SQ SCH ×2 (08:36→19:50)
[2017-04-10] MEDS: LORazepam 0.5 MG tablet PO SCH ×3 (08:36→20:53)
[2017-04-10] MEDS: quetiapine 100mg tablet PO SCH ×3 (08:36→20:54)
[2017-04-10] MEDS: magnesium oxide 400mg tablet PO SCH ×2 (08:36→19:48)
[2017-04-10] MEDS: lisinopril 20mg tablet PO SCH (08:36)
[2017-04-10] MEDS: risperiDONE 0.5mg tablet PO SCH ×2 (08:37→19:48)
[2017-04-10] MEDS: oxcarbazepine 150mg tablet PO SCH ×2 (08:37→19:47)
[2017-04-10] MEDS: metoprolol succinate 25mg (24-HOUR) SR. Tablet PO SCH (08:37)
[2017-04-10] MEDS: polyethylene glycol 3350 17gm powd pack PO SCH (08:38)
[2017-04-10] MEDS: fenofibrate 145mg tablet PO SCH (08:38)
[2017-04-10] MEDS: trihexyphenidyl HCL 5 MG tablet PO SCH ×2 (08:39→20:51)
[2017-04-10] MEDS: vancomycin 125mg/5ml ORAL solution 5ml UD bottle PO SCH ×4 (08:39→20:50)
[2017-04-10 11:52] VITALS: BP 125/70
[2017-04-10] MEDS: lactobacillus rhamnosus 10,000 MMU CELLS/CAPSULE PO SCH (17:05)
[2017-04-10] MEDS ORDERED: glucagon, human recombinant 1mg kit SUBCUT PRN (17:30)
[2017-04-10] MEDS ORDERED: MESSAGE TO PHARMACY PO ONE (17:30)
[2017-04-10] MEDS ORDERED: dextrose 50%-water 50ml dispensing syringe IV PRN ×2 (17:30)
[2017-04-10] MEDS ORDERED: dextrose ORAL solution 15 GM/59 ML bottle PO PRN ×2 (17:30)
[2017-04-10 18:12] LABS: HEMATOCRIT 35.3 % (35.0-45.0); HEMOGLOBIN 12.2 g/dl (12.0-16.0); MEAN CORPUSCULAR HEMOGLOBIN 28.4 PG (27.0-31.0); MEAN CORPUSCULAR HGB CONC 34.6 % (33.0-36.5); MEAN PLATELET VOLUME 5.8 FL (7.4-10.4); PLATELET COUNT 464 X10'3 (140-440); RED BLOOD COUNT 4.31 X10'6 (4.20-5.60); RED CELL DISTRIBUTION WIDTH 15.3 % (11.5-14.5); WHITE BLOOD COUNT 12.4 X10'3 (4.5-11.0)
[2017-04-10 19:00] VITALS: BP 150/71
[2017-04-10] MEDS: cefepime 1GM/NS ADD-VANTAGE 100 ML IV SCH (19:46)
[2017-04-10] MEDS: atorvastatin 20mg tablet PO SCH (20:52)
[2017-04-10] MEDS: aripiprazole 5mg tablet PO SCH (20:52)
[2017-04-10] MEDS: oxybutynin 5mg tablet PO SCH (20:52)
[2017-04-10] MEDS: pantoprazole 40MG/NS 100ML BAG 100 ML IV SCH (20:55)
[2017-04-10] MEDS: insulin glargine (Lantus) pen - multi-dose SQ SCH (21:00)
[2017-04-11] VITALS: BP 141/71
[2017-04-11] MEDS: pantoprazole 40MG/NS 100ML BAG 100 ML IV SCH ×4 (01:11→18:27)
[2017-04-11 05:39] LABS: BASOPHILS % (AUTO) 0.3 % (0-1); EOSINOPHILS # (AUTO) 0.3 X10'3 (0-0.9); EOSINOPHILS % (AUTO) 3.4 % (0-6); HEMATOCRIT 27.4 % (35.0-45.0); HEMOGLOBIN 9.6 g/dl (12.0-16.0); LYMPHOCYTES # (AUTO) 2.1 X10'3 (1.1-4.8); LYMPHOCYTES % (AUTO) 20.6 % (21-51); MEAN CORPUSCULAR HEMOGLOBIN 28.4 PG (27.0-31.0); MEAN PLATELET VOLUME 5.7 FL (7.4-10.4); MONOCYTES # (AUTO) 1.1 X10'3 (0-0.9); MONOCYTES % (AUTO) 10.4 % (2-12); NEUTROPHILS # (AUTO) 6.6 X10'3 (1.8-7.7); NEUTROPHILS % (AUTO) 65.3 % (42-75); PLATELET COUNT 430 X10'3 (140-440); RED BLOOD COUNT 3.38 X10'6 (4.20-5.60); WHITE BLOOD COUNT 10.1 X10'3 (4.5-11.0)
[2017-04-11 06:24] LABS: ALBUMIN 1.9 G/DL (3.4-5.0); ANION GAP 6 (8-16); BLOOD UREA NITROGEN 10 MG/DL (7-18); BUN/CREATININE RATIO 16.7 (6.6-38.0); CALCIUM 7.7 MG/DL (8.5-10.1); CHLORIDE 95 MMOL/L (99-107); GLUCOSE 110 MG/DL (70-104); POTASSIUM 3.9 MMOL/L (3.5-5.1); SODIUM 126 MMOL/L (135-145); TOTAL CARBON DIOXIDE 25.4 MMOL/L (24-32); eGFR > 90 ML/MIN
[2017-04-11] MEDS: normal saline 1000ml 1,000 ML IV SCH ×2 (07:58→18:16)
[2017-04-11 08:00] VITALS: BP 140/64
[2017-04-11] MEDS: vancomycin 125mg/5ml ORAL solution 5ml UD bottle PO SCH ×4 (08:52→20:53)
[2017-04-11] MEDS: aspirin 81mg tab.chew PO SCH (08:53)
[2017-04-11] MEDS: cefepime 1GM/NS ADD-VANTAGE 100 ML IV SCH ×2 (08:53→19:39)
[2017-04-11] MEDS: risperiDONE 0.5mg tablet PO SCH ×2 (08:53→19:38)
[2017-04-11] MEDS: magnesium oxide 400mg tablet PO SCH ×2 (08:53→19:38)
[2017-04-11] MEDS: lisinopril 20mg tablet PO SCH (08:54)
[2017-04-11] MEDS: ascorbic acid 500mg tablet PO SCH ×2 (08:54→19:39)
[2017-04-11] MEDS: levoTHYROXINE 100mcg tablet PO SCH (08:54)
[2017-04-11] MEDS: polyethylene glycol 3350 17gm powd pack PO SCH (08:54)
[2017-04-11] MEDS: oxcarbazepine 150mg tablet PO SCH ×2 (08:54→19:37)
[2017-04-11] MEDS: LORazepam 0.5 MG tablet PO SCH ×3 (08:55→20:51)
[2017-04-11] MEDS: quetiapine 100mg tablet PO SCH ×3 (08:55→20:52)
[2017-04-11] MEDS: fenofibrate 145mg tablet PO SCH (08:55)
[2017-04-11] MEDS: metoprolol succinate 25mg (24-HOUR) SR. Tablet PO SCH (08:55)
[2017-04-11] MEDS: trihexyphenidyl HCL 5 MG tablet PO SCH ×2 (08:55→19:40)
[2017-04-11] MEDS: heparin, porcine 5000 units/ml vial SQ SCH ×2 (08:56→19:39)
[2017-04-11] MEDS: lactobacillus rhamnosus 10,000 MMU CELLS/CAPSULE PO SCH ×2 (08:58→18:15)
[2017-04-11] MEDS: insulin Lispro (HumaLOG) vial - multi-dose SQ SCH ×3 (09:12→18:33)
[2017-04-11 11:00] VITALS: BP 136/62
[2017-04-11 19:00] VITALS: BP 140/78
[2017-04-11] MEDS: nystatin 15 GM powder TP SCH (19:39)
[2017-04-11] MEDS: oxybutynin 5mg tablet PO SCH (20:51)
[2017-04-11] MEDS: aripiprazole 5mg tablet PO SCH (20:51)
[2017-04-11] MEDS: atorvastatin 20mg tablet PO SCH (20:52)
[2017-04-11] MEDS: insulin glargine (Lantus) pen - multi-dose SQ SCH (20:56)
[2017-04-12] VITALS: BP 141/82
[2017-04-12] MEDS: pantoprazole 40MG/NS 100ML BAG 100 ML IV SCH ×6 (01:00→21:00)
[2017-04-12] MEDS: normal saline 1000ml 1,000 ML IV SCH ×2 (04:50→15:34)
[2017-04-12 06:12] LABS: BASOPHILS % (AUTO) 0.5 % (0-1); EOSINOPHILS # (AUTO) 0.5 X10'3 (0-0.9); EOSINOPHILS % (AUTO) 5.7 % (0-6); HEMATOCRIT 28.5 % (35.0-45.0); HEMOGLOBIN 9.8 g/dl (12.0-16.0); LYMPHOCYTES % (AUTO) 25.2 % (21-51); MEAN CORPUSCULAR HGB CONC 34.3 % (33.0-36.5); MEAN CORPUSCULAR VOLUME 81.4 FL (78-98); MEAN PLATELET VOLUME 5.9 FL (7.4-10.4); MONOCYTES # (AUTO) 0.7 X10'3 (0-0.9); MONOCYTES % (AUTO) 9.2 % (2-12); NEUTROPHILS # (AUTO) 4.8 X10'3 (1.8-7.7); NEUTROPHILS % (AUTO) 59.4 % (42-75); PLATELET COUNT 436 X10'3 (140-440); RED CELL DISTRIBUTION WIDTH 15.5 % (11.5-14.5); WHITE BLOOD COUNT 8.1 X10'3 (4.5-11.0)
[2017-04-12 06:48] LABS: ANION GAP 6 (8-16); BLOOD UREA NITROGEN 7 MG/DL (7-18); CHLORIDE 101 MMOL/L (99-107); GLUCOSE 91 MG/DL (70-104); POTASSIUM 3.8 MMOL/L (3.5-5.1); SODIUM 133 MMOL/L (135-145); TOTAL CARBON DIOXIDE 26.4 MMOL/L (24-32); eGFR > 90 ML/MIN
[2017-04-12 07:53] VITALS: BP 146/61
[2017-04-12] MEDS: trihexyphenidyl HCL 5 MG tablet PO SCH ×2 (08:00→20:51)
[2017-04-12] MEDS: oxcarbazepine 150mg tablet PO SCH ×2 (08:00→20:50)
[2017-04-12] MEDS: magnesium oxide 400mg tablet PO SCH ×2 (08:00→20:51)
[2017-04-12] MEDS: nystatin 15 GM powder TP SCH ×2 (09:34→20:52)
[2017-04-12] MEDS: levoTHYROXINE 100mcg tablet PO SCH (09:37)
[2017-04-12] MEDS: LORazepam 0.5 MG tablet PO SCH ×3 (09:37→20:49)
[2017-04-12] MEDS: aspirin 81mg tab.chew PO SCH (09:37)
[2017-04-12] MEDS: heparin, porcine 5000 units/ml vial SQ SCH ×2 (09:37→20:52)
[2017-04-12] MEDS: vancomycin 125mg/5ml ORAL solution 5ml UD bottle PO SCH ×4 (09:37→20:47)
[2017-04-12] MEDS: lactobacillus rhamnosus 10,000 MMU CELLS/CAPSULE PO SCH ×2 (09:37→17:31)
[2017-04-12] MEDS: polyethylene glycol 3350 17gm powd pack PO SCH (09:37)
[2017-04-12] MEDS: lisinopril 20mg tablet PO SCH (09:38)
[2017-04-12] MEDS: quetiapine 100mg tablet PO SCH ×3 (09:39→20:48)
[2017-04-12] MEDS: metoprolol succinate 25mg (24-HOUR) SR. Tablet PO SCH (09:39)
[2017-04-12] MEDS: risperiDONE 0.5mg tablet PO SCH ×2 (09:40→20:50)
[2017-04-12] MEDS: fenofibrate 145mg tablet PO SCH (09:40)
[2017-04-12] MEDS: ascorbic acid 500mg tablet PO SCH ×2 (09:40→20:48)
[2017-04-12] MEDS: cefepime 1GM/NS ADD-VANTAGE 100 ML IV SCH ×2 (09:40→20:51)
[2017-04-12] MEDS: insulin Lispro (HumaLOG) vial - multi-dose SQ SCH ×3 (10:01→19:03)
[2017-04-12 11:59] VITALS: BP 141/80
[2017-04-12 19:30] VITALS: BP 159/71
[2017-04-12] MEDS: aripiprazole 5mg tablet PO SCH (20:48)
[2017-04-12] MEDS: oxybutynin 5mg tablet PO SCH (20:49)
[2017-04-12] MEDS: atorvastatin 20mg tablet PO SCH (20:50)
[2017-04-12] MEDS: insulin glargine (Lantus) pen - multi-dose SQ SCH (22:00)
[2017-04-13] MEDS: pantoprazole 40MG/NS 100ML BAG 100 ML IV SCH ×5 (01:05→21:31)
[2017-04-13] MEDS: normal saline 1000ml 1,000 ML IV SCH ×3 (01:05→21:35)
[2017-04-13 06:14] LABS: BASOPHILS # (AUTO) 0.1 X10'3 (0-0.2); BASOPHILS % (AUTO) 0.7 % (0-1); EOSINOPHILS # (AUTO) 0.5 X10'3 (0-0.9); EOSINOPHILS % (AUTO) 5.8 % (0-6); HEMATOCRIT 32.2 % (35.0-45.0); HEMOGLOBIN 11.1 g/dl (12.0-16.0); LYMPHOCYTES # (AUTO) 3.1 X10'3 (1.1-4.8); LYMPHOCYTES % (AUTO) 36.1 % (21-51); MEAN CORPUSCULAR HEMOGLOBIN 28.3 PG (27.0-31.0); MEAN CORPUSCULAR HGB CONC 34.5 % (33.0-36.5); MEAN CORPUSCULAR VOLUME 82.1 FL (78-98); MEAN PLATELET VOLUME 6.1 FL (7.4-10.4); MONOCYTES # (AUTO) 0.8 X10'3 (0-0.9); MONOCYTES % (AUTO) 8.9 % (2-12); NEUTROPHILS # (AUTO) 4.1 X10'3 (1.8-7.7); NEUTROPHILS % (AUTO) 48.5 % (42-75); PLATELET COUNT 513 X10'3 (140-440); RED BLOOD COUNT 3.92 X10'6 (4.20-5.60); RED CELL DISTRIBUTION WIDTH 15.5 % (11.5-14.5); WHITE BLOOD COUNT 8.6 X10'3 (4.5-11.0)
[2017-04-13 06:30] LABS: ALBUMIN 2.3 G/DL (3.4-5.0); ANION GAP 9 (8-16); BLOOD UREA NITROGEN 6 MG/DL (7-18); CALCIUM 8.8 MG/DL (8.5-10.1); CHLORIDE 101 MMOL/L (99-107); GLUCOSE 98 MG/DL (70-104); POTASSIUM 3.7 MMOL/L (3.5-5.1); SODIUM 137 MMOL/L (135-145); TOTAL CARBON DIOXIDE 26.8 MMOL/L (24-32); eGFR > 90 ML/MIN
[2017-04-13 07:00] VITALS: BP 160/83
[2017-04-13] MEDS: lactobacillus rhamnosus 10,000 MMU CELLS/CAPSULE PO SCH ×2 (09:00→17:20)
[2017-04-13] MEDS: levoTHYROXINE 100mcg tablet PO SCH (09:00)
[2017-04-13] MEDS: aspirin 81mg tab.chew PO SCH (09:00)
[2017-04-13] MEDS: quetiapine 100mg tablet PO SCH ×3 (09:00→21:29)
[2017-04-13] MEDS: trihexyphenidyl HCL 5 MG tablet PO SCH ×2 (09:00→21:30)
[2017-04-13] MEDS: magnesium oxide 400mg tablet PO SCH ×2 (09:01→21:30)
[2017-04-13] MEDS: lisinopril 20mg tablet PO SCH (09:01)
[2017-04-13] MEDS: oxcarbazepine 150mg tablet PO SCH ×2 (09:01→21:30)
[2017-04-13] MEDS: ascorbic acid 500mg tablet PO SCH ×2 (09:01→21:30)
[2017-04-13] MEDS: metoprolol succinate 25mg (24-HOUR) SR. Tablet PO SCH (09:01)
[2017-04-13] MEDS: risperiDONE 0.5mg tablet PO SCH ×2 (09:01→21:31)
[2017-04-13] MEDS: LORazepam 0.5 MG tablet PO SCH ×3 (09:01→21:30)
[2017-04-13] MEDS: fenofibrate 145mg tablet PO SCH (09:01)
[2017-04-13] MEDS: polyethylene glycol 3350 17gm powd pack PO SCH (09:02)
[2017-04-13] MEDS: heparin, porcine 5000 units/ml vial SQ SCH ×2 (09:02→21:28)
[2017-04-13] MEDS: nystatin 15 GM powder TP SCH ×2 (09:02→21:38)
[2017-04-13] MEDS: vancomycin 125mg/5ml ORAL solution 5ml UD bottle PO SCH ×4 (09:02→21:29)
[2017-04-13] MEDS: cefepime 1GM/NS ADD-VANTAGE 100 ML IV SCH ×2 (09:02→21:31)
[2017-04-13] MEDS: insulin Lispro (HumaLOG) vial - multi-dose SQ SCH ×3 (09:10→19:27)
[2017-04-13 11:00] VITALS: BP 164/79
[2017-04-13 20:00] VITALS: BP 149/87
[2017-04-13] MEDS: atorvastatin 20mg tablet PO SCH (21:29)
[2017-04-13] MEDS: oxybutynin 5mg tablet PO SCH (21:30)
[2017-04-13] MEDS: aripiprazole 5mg tablet PO SCH (21:30)
[2017-04-13] MEDS: insulin glargine (Lantus) pen - multi-dose SQ SCH (21:36)
[2017-04-13 23:30] VITALS: BP 162/85
[2017-04-14] MEDS: pantoprazole 40MG/NS 100ML BAG 100 ML IV SCH ×2 (03:11→06:00)
[2017-04-14 06:04] LABS: BASOPHILS # (AUTO) 0.1 X10'3 (0-0.2); BASOPHILS % (AUTO) 1.4 % (0-1); EOSINOPHILS # (AUTO) 0.5 X10'3 (0-0.9); EOSINOPHILS % (AUTO) 7.6 % (0-6); HEMATOCRIT 27.4 % (35.0-45.0); HEMOGLOBIN 9.6 g/dl (12.0-16.0); LYMPHOCYTES # (AUTO) 2.1 X10'3 (1.1-4.8); LYMPHOCYTES % (AUTO) 32.6 % (21-51); MEAN CORPUSCULAR HGB CONC 34.9 % (33.0-36.5); MEAN CORPUSCULAR VOLUME 80.3 FL (78-98); MEAN PLATELET VOLUME 5.8 FL (7.4-10.4); MONOCYTES # (AUTO) 0.6 X10'3 (0-0.9); MONOCYTES % (AUTO) 9.7 % (2-12); NEUTROPHILS # (AUTO) 3.1 X10'3 (1.8-7.7); NEUTROPHILS % (AUTO) 48.7 % (42-75); PLATELET COUNT 456 X10'3 (140-440); RED BLOOD COUNT 3.41 X10'6 (4.20-5.60); RED CELL DISTRIBUTION WIDTH 15.2 % (11.5-14.5); WHITE BLOOD COUNT 6.3 X10'3 (4.5-11.0)
[2017-04-14 06:22] LABS: ANION GAP 4 (8-16); BLOOD UREA NITROGEN 5 MG/DL (7-18); BUN/CREATININE RATIO 12.5 (6.6-38.0); CALCIUM 8.3 MG/DL (8.5-10.1); CHLORIDE 103 MMOL/L (99-107); GLUCOSE 121 MG/DL (70-104); POTASSIUM 3.5 MMOL/L (3.5-5.1); SODIUM 134 MMOL/L (135-145); TOTAL CARBON DIOXIDE 26.7 MMOL/L (24-32); eGFR > 90 ML/MIN
[2017-04-14 07:00] VITALS: BP 102/62
[2017-04-14] MEDS: polyethylene glycol 3350 17gm powd pack PO SCH (08:00)
[2017-04-14] MEDS: normal saline 1000ml 1,000 ML IV SCH ×3 (08:51→19:48)
[2017-04-14] MEDS: ascorbic acid 500mg tablet PO SCH ×2 (08:54→21:41)
[2017-04-14] MEDS: fenofibrate 145mg tablet PO SCH (08:54)
[2017-04-14] MEDS: lisinopril 20mg tablet PO SCH (08:54)
[2017-04-14] MEDS: oxcarbazepine 150mg tablet PO SCH ×2 (08:54→21:41)
[2017-04-14] MEDS: risperiDONE 0.5mg tablet PO SCH ×2 (08:54→21:42)
[2017-04-14] MEDS: lactobacillus rhamnosus 10,000 MMU CELLS/CAPSULE PO SCH ×2 (08:55→17:08)
[2017-04-14] MEDS: levoTHYROXINE 100mcg tablet PO SCH (08:55)
[2017-04-14] MEDS: trihexyphenidyl HCL 5 MG tablet PO SCH ×2 (08:55→21:42)
[2017-04-14] MEDS: vancomycin 125mg/5ml ORAL solution 5ml UD bottle PO SCH ×4 (08:55→21:40)
[2017-04-14] MEDS: magnesium oxide 400mg tablet PO SCH ×2 (08:55→21:41)
[2017-04-14] MEDS: quetiapine 100mg tablet PO SCH ×3 (08:55→21:42)
[2017-04-14] MEDS: aspirin 81mg tab.chew PO SCH (08:55)
[2017-04-14] MEDS: metoprolol succinate 25mg (24-HOUR) SR. Tablet PO SCH (08:55)
[2017-04-14] MEDS: LORazepam 0.5 MG tablet PO SCH ×3 (08:55→21:42)
[2017-04-14] MEDS: heparin, porcine 5000 units/ml vial SQ SCH ×2 (08:56→21:41)
[2017-04-14] MEDS: nystatin 15 GM powder TP SCH ×2 (08:59→21:48)
[2017-04-14] MEDS: cefepime 1GM/NS ADD-VANTAGE 100 ML IV SCH ×2 (08:59→21:40)
[2017-04-14] MEDS: insulin Lispro (HumaLOG) vial - multi-dose SQ SCH ×2 (09:07→14:30)
[2017-04-14 20:00] VITALS: BP 145/81
[2017-04-14] MEDS: insulin glargine (Lantus) pen - multi-dose SQ SCH (21:39)
[2017-04-14] MEDS: oxybutynin 5mg tablet PO SCH (21:41)
[2017-04-14] MEDS: atorvastatin 20mg tablet PO SCH (21:42)
[2017-04-14] MEDS: aripiprazole 5mg tablet PO SCH (21:42)
[2017-04-15] VITALS: BP 156/81
[2017-04-15] MEDS: normal saline 1000ml 1,000 ML IV SCH ×2 (05:07→14:50)
[2017-04-15] MEDS: fenofibrate 145mg tablet PO SCH (08:30)
[2017-04-15] MEDS: insulin Lispro (HumaLOG) vial - multi-dose SQ SCH ×3 (09:17→19:15)
[2017-04-15] MEDS: polyethylene glycol 3350 17gm powd pack PO SCH (09:27)
[2017-04-15] MEDS: nystatin 15 GM powder TP SCH ×2 (09:28→21:57)
[2017-04-15] MEDS: lisinopril 20mg tablet PO SCH (09:28)
[2017-04-15] MEDS: vancomycin 125mg/5ml ORAL solution 5ml UD bottle PO SCH ×4 (09:28→21:45)
[2017-04-15] MEDS: ascorbic acid 500mg tablet PO SCH ×2 (09:28→21:45)
[2017-04-15] MEDS: cefepime 1GM/NS ADD-VANTAGE 100 ML IV SCH ×2 (09:28→21:47)
[2017-04-15] MEDS: oxcarbazepine 150mg tablet PO SCH ×2 (09:28→21:44)
[2017-04-15] MEDS: metoprolol succinate 25mg (24-HOUR) SR. Tablet PO SCH (09:29)
[2017-04-15] MEDS: levoTHYROXINE 100mcg tablet PO SCH (09:29)
[2017-04-15] MEDS: quetiapine 100mg tablet PO SCH ×3 (09:30→21:45)
[2017-04-15] MEDS: LORazepam 0.5 MG tablet PO SCH ×3 (09:30→21:45)
[2017-04-15] MEDS: risperiDONE 0.5mg tablet PO SCH ×2 (09:30→21:45)
[2017-04-15] MEDS: trihexyphenidyl HCL 5 MG tablet PO SCH ×2 (09:31→21:45)
[2017-04-15] MEDS: aspirin 81mg tab.chew PO SCH (09:31)
[2017-04-15] MEDS: magnesium oxide 400mg tablet PO SCH ×2 (09:31→21:45)
[2017-04-15] MEDS: lactobacillus rhamnosus 10,000 MMU CELLS/CAPSULE PO SCH ×2 (09:31→17:37)
[2017-04-15] MEDS: pantoprazole 40mg Tablet.DR PO SCH (09:32)
[2017-04-15] MEDS: heparin, porcine 5000 units/ml vial SQ SCH ×2 (09:33→21:46)
[2017-04-15 12:00] VITALS: BP 142/71
[2017-04-15 18:30] VITALS: BP 152/81
[2017-04-15] MEDS: atorvastatin 20mg tablet PO SCH (21:45)
[2017-04-15] MEDS: aripiprazole 5mg tablet PO SCH (21:45)
[2017-04-15] MEDS: oxybutynin 5mg tablet PO SCH (21:45)
[2017-04-15] MEDS: insulin glargine (Lantus) pen - multi-dose SQ SCH (21:52)
[2017-04-16] VITALS: BP 159/79
[2017-04-16] MEDS: normal saline 1000ml 1,000 ML IV SCH ×2 (01:41→08:30)
[2017-04-16 06:01] LABS: BASOPHILS # (AUTO) 0.1 X10'3 (0-0.2); BASOPHILS % (AUTO) 1.4 % (0-1); EOSINOPHILS # (AUTO) 0.5 X10'3 (0-0.9); EOSINOPHILS % (AUTO) 8.3 % (0-6); HEMATOCRIT 29.8 % (35.0-45.0); LYMPHOCYTES # (AUTO) 2.1 X10'3 (1.1-4.8); LYMPHOCYTES % (AUTO) 36.7 % (21-51); MEAN CORPUSCULAR HEMOGLOBIN 27.5 PG (27.0-31.0); MEAN CORPUSCULAR HGB CONC 33.5 % (33.0-36.5); MEAN CORPUSCULAR VOLUME 82.1 FL (78-98); MEAN PLATELET VOLUME 5.7 FL (7.4-10.4); MONOCYTES # (AUTO) 0.6 X10'3 (0-0.9); MONOCYTES % (AUTO) 10.2 % (2-12); NEUTROPHILS # (AUTO) 2.5 X10'3 (1.8-7.7); NEUTROPHILS % (AUTO) 43.4 % (42-75); PLATELET COUNT 502 X10'3 (140-440); RED BLOOD COUNT 3.63 X10'6 (4.20-5.60); RED CELL DISTRIBUTION WIDTH 15.5 % (11.5-14.5); WHITE BLOOD COUNT 5.9 X10'3 (4.5-11.0)
[2017-04-16 07:00] VITALS: BP 143/91
[2017-04-16 07:21] LABS: ALANINE AMINOTRANSFERASE 27 U/L (12-78); ALBUMIN 2.3 G/DL (3.4-5.0); ALBUMIN/GLOBULIN RATIO 0.7 (1.1-1.5); ALKALINE PHOSPHATASE 52 IU/L (46-116); ANION GAP 8 (8-16); ASPARTATE AMINO TRANSFERASE 22 U/L (10-37); BILIRUBIN,TOTAL 0.2 MG/DL (0.1-1.0); BLOOD UREA NITROGEN 6 MG/DL (7-18); CALCIUM 8.5 MG/DL (8.5-10.1); CHLORIDE 104 MMOL/L (99-107); GLUCOSE 78 MG/DL (70-104); POTASSIUM 3.7 MMOL/L (3.5-5.1); SODIUM 137 MMOL/L (135-145); TOTAL CARBON DIOXIDE 24.7 MMOL/L (24-32); TOTAL PROTEIN 5.7 G/DL (6.4-8.2); eGFR > 90 ML/MIN
[2017-04-16] MEDS: polyethylene glycol 3350 17gm powd pack PO SCH (08:00)
[2017-04-16] MEDS: insulin Lispro (HumaLOG) vial - multi-dose SQ SCH (08:29)
[2017-04-16] MEDS: heparin, porcine 5000 units/ml vial SQ SCH (08:29)
[2017-04-16] MEDS: lisinopril 20mg tablet PO SCH (08:30)
[2017-04-16] MEDS: fenofibrate 145mg tablet PO SCH (08:30)
[2017-04-16] MEDS: levoTHYROXINE 100mcg tablet PO SCH (08:30)
[2017-04-16] MEDS: trihexyphenidyl HCL 5 MG tablet PO SCH (08:30)
[2017-04-16] MEDS: vancomycin 125mg/5ml ORAL solution 5ml UD bottle PO SCH (08:30)
[2017-04-16] MEDS: aspirin 81mg tab.chew PO SCH (08:30)
[2017-04-16] MEDS: pantoprazole 40mg Tablet.DR PO SCH (08:30)
[2017-04-16] MEDS: lactobacillus rhamnosus 10,000 MMU CELLS/CAPSULE PO SCH (08:30)
[2017-04-16] MEDS: oxcarbazepine 150mg tablet PO SCH (08:30)
[2017-04-16] MEDS: quetiapine 100mg tablet PO SCH (08:30)
[2017-04-16] MEDS: cefepime 1GM/NS ADD-VANTAGE 100 ML IV SCH (08:30)
[2017-04-16] MEDS: metoprolol succinate 25mg (24-HOUR) SR. Tablet PO SCH (08:30)
[2017-04-16] MEDS: risperiDONE 0.5mg tablet PO SCH (08:30)
[2017-04-16] MEDS: magnesium oxide 400mg tablet PO SCH (08:30)
[2017-04-16] MEDS: ascorbic acid 500mg tablet PO SCH (08:31)
[2017-04-16] MEDS: nystatin 15 GM powder TP SCH (08:32)
[2017-04-16] MEDS: LORazepam 0.5 MG tablet PO SCH (08:33)
== END 2017-04-16 11:30 | DRG 389 ==
LOC: ER 11:26 → ED HOLD 14:36 → EDBEDREQ 19:14 → EDBEDREQSVC 19:14 → EDBEDREQTM 20:25 → MED 3N 21:20
PROVIDERS: ADMIT Family Medicine; ATTEND Family Medicine
DX: K56.7 Ileus, unspecified (principal); N13.6 Pyonephrosis; E44.0 Moderate protein-calorie malnutrition; E87.1 Hypo-osmolality and hyponatremia; F20.9 Schizophrenia, unspecified; J44.9 Chronic obstructive pulmonary disease, unspecified; N39.0 Urinary tract infection, site not specified; E11.9 Type 2 diabetes mellitus without complications; J98.11 Atelectasis; K21.9 Gastro-esophageal reflux disease without esophagitis; E03.9 Hypothyroidism, unspecified; F41.9 Anxiety disorder, unspecified; E78.5 Hyperlipidemia, unspecified; I10 Essential (primary) hypertension; B96.4 Proteus (mirabilis) (morganii) as the cause of diseases classified elsewhere; Z96.641 Presence of right artificial hip joint; Z96.0 Presence of urogenital implants; Z79.82 Long term (current) use of aspirin; Z79.899 Other long term (current) drug therapy; Z86.19 Personal history of other infectious and parasitic diseases; Z87.442 Personal history of urinary calculi; Z87.440 Personal history of urinary (tract) infections
CPT/HCPCS: 36415; 74176; 80048; 80053; 81001; 82948; 83690; 85025; 85027; 87070; 87077; 87088; 87186; 96365; 96368; 97116; 97161; 97530; 99285; A6213; A6258; A6449; C9113; J0692; J0696; J1644; J1815; J2185; J2405; J2543; J7030; Q0175

== ENCOUNTER 2020-01-21 12:31 | Inpatient (IN) | payer MEDICARE, MEDICAID ==
[2020-01-21] VITALS (12 sets, daily range): BP systolic 107–164; BP diastolic 46–72
[~2020-01-21] VITALS: Ht 172.7 cm; Wt 77.2 kg
[~2020-01-21 12:31] MED LIST changes: -ACET-2119 PO; +ARIP5TAB14 PO; +ASPI-1265 PO; -ASPI-611 PO; -BISA-78 PO; -CAPT25TA3 PO; -DULR RC; -FENO200C23 PO; +FENO48TA15 PO; -GEO20I IM; -HYDR-565 PO; -INSU100V9 SQ; -LORA-269 PO; -MAGN400C PO; +MAGN400T28 PO; -MAGN800O PO; -NYSPWD TP; -OXCA600T5 PO; +OXCA600T9 PO; -OXYB5TAB11 PO; +OXYB5TAB16 PO; -VANC5VIA PO; +VIT500LI PO; -VITC500T PO
[2020-01-21] MEDS ORDERED: ketorolac tromethamine 15mg/ml inj. IV ONE (12:55)
[2020-01-21] MEDS ORDERED: normal saline 1000ML IV soln IVB ONE (12:55)
[2020-01-21 13:32] LABS: CLARITY,URINE CLOUDY (Clear); COLOR,URINE YELLOW (Yellow); GLUCOSE, URINE >=1000 mg/dl (Neg); KETONES,URINE NEGATIVE (Neg); LEUKOCYTE ESTERASE ,URINE MODERATE (Neg); NITRITES, URINE NEGATIVE (Neg); OCCULT BLOOD,URINE LARGE (Neg); PH,URINE 7.5 (4.8-8.0); PROTEIN,URINE 100 mg/dl (Neg); UROBILINOGEN,URINE 0.2 E.U/dL (0.2-1.0)
[2020-01-21 13:33] LABS: UA COLLECTION TYPE STRAIGHT CATH
[2020-01-21 13:52] LABS: SQUAMOUS EPITHELIAL CELL,UR MODERATE /LPF (FEW)
[2020-01-21 13:53] LABS: RBC,URINE TNTC /HPF (0-2); WBC,URINE TNTC /HPF (0-4)
[2020-01-21 13:55] LABS: BACTERIA,URINE 3+ /HPF (Neg); WBC CLUMPS,URINE MANY /HPF (NEGATIVE)
[2020-01-21 14:03] LABS: BASOPHILS % (AUTO) 0.2 % (0-1); EOSINOPHILS % (AUTO) 0.1 % (0-6); HEMATOCRIT 35.4 % (35.0-45.0); HEMOGLOBIN 11.8 g/dl (12.0-16.0); LYMPHOCYTES # (AUTO) 1.5 X10'3 (1.1-4.8); LYMPHOCYTES % (AUTO) 7.2 % (21-51); MEAN CORPUSCULAR HEMOGLOBIN 24.9 PG (27.0-31.0); MEAN CORPUSCULAR HGB CONC 33.2 g/dL (33.0-36.5); MEAN CORPUSCULAR VOLUME 74.9 FL (78-98); MEAN PLATELET VOLUME 6.7 FL (7.4-10.4); MONOCYTES # (AUTO) 1.5 X10'3 (0-0.9); MONOCYTES % (AUTO) 7.4 % (2-12); NEUTROPHILS # (AUTO) 17.1 X10'3 (1.8-7.7); NEUTROPHILS % (AUTO) 85.1 % (42-75); PLATELET COUNT 641 X10'3 (140-440); RED BLOOD COUNT 4.72 X10'6 (4.20-5.60); RED CELL DISTRIBUTION WIDTH 17.9 % (11.5-14.5); WHITE BLOOD COUNT 20.1 X10'3 (4.5-11.0)
[2020-01-21 14:12] LABS: ALANINE AMINOTRANSFERASE 86 U/L (12-78); ALBUMIN 2.2 G/DL (3.4-5.0); ALBUMIN/GLOBULIN RATIO 0.3 (1.1-1.5); ALKALINE PHOSPHATASE 145 IU/L (46-116); ANION GAP 10 (8-16); ASPARTATE AMINO TRANSFERASE 47 U/L (10-37); BILIRUBIN,TOTAL 0.3 MG/DL (0.1-1.0); BLOOD UREA NITROGEN 74 MG/DL (7-18); BUN/CREATININE RATIO 35.6 (6.6-38.0); CALCIUM 9.9 MG/DL (8.5-10.1); CHLORIDE 79 MMOL/L (99-107); CREATININE 2.08 MG/DL (0.40-0.90); LIPASE 212 U/L (73-393); POTASSIUM 5.7 MMOL/L (3.5-5.1); TOTAL CARBON DIOXIDE 23.3 MMOL/L (24-32); TOTAL PROTEIN 8.8 G/DL (6.4-8.2); eGFR 23 ML/MIN
[2020-01-21 14:14] LABS: GLUCOSE 523 MG/DL (70-104); SODIUM 112 MMOL/L (135-145)
[2020-01-21] MEDS ORDERED: normal saline 1000ML IV soln IV ONE (14:15)
[2020-01-21] MEDS ORDERED: CefTRIAXone 2gm/D5W 50ml BAG 50 ML IV ONE (14:15)
[2020-01-21 14:32] LABS: MAGNESIUM 2.4 MG/DL (1.5-2.4)
[2020-01-21 15:03] LABS: PLATELET ESTIMATE INCREASED; TOTAL CELLS COUNTED 100
[2020-01-21 15:04] LABS: ANISOCYTOSIS 2+; HYPOCHROMASIA 1+; MICROCYTOSIS 1+; POLYCHROMASIA 1+; TOXIC GRANULATION 1+; TOXIC VACUOLATION FEW
--- NOTE | 2020-01-21 15:14 | NUR ---
Patient sleepign supine with no signs of distress.
[2020-01-21] MEDS ORDERED: magnesium 4gm in 100ml NS 100 ML IV PRN (15:30)
[2020-01-21] MEDS ORDERED: acetaminophen 325mg tablet PO PRN (15:30)
[2020-01-21] MEDS ORDERED: magnesium 2GM in 50ml NS 50 ML IV PRN (15:30)
[2020-01-21] MEDS ORDERED: potassium CL 10mEq/100ml bag 100 ML IV PRN ×2 (15:30)
[2020-01-21] MEDS ORDERED: potassium Cl 20 mEq SR tablet PO PRN ×2 (15:30)
[2020-01-21] MEDS ORDERED: magnesium Cl slow-release 64mg tablet PO PRN (15:30)
[2020-01-21] MEDS ORDERED: Insulin Reg/NS 100units/100mL 100 ML IV SCH ×2 (15:30→19:50)
[2020-01-21] MEDS ORDERED: ondansetron/PF 4mg/2ml inj IV PRN (15:30)
[2020-01-21] MEDS ORDERED: acetaminophen 650mg rectal suppository RC PRN (15:30)
[2020-01-21] MEDS ORDERED: potassium Cl 20mEq in NS 1,000 ML IV SCH (15:30)
[2020-01-21] MEDS ORDERED: DIPH25CA83 PO (15:38)
[2020-01-21] MEDS ORDERED: FURO-150 PO (15:38)
[2020-01-21] MEDS ORDERED: LACT10SO57 PO (15:38)
[2020-01-21] MEDS ORDERED: POTA10TA36 PO (15:38)
[2020-01-21] MEDS ORDERED: HYDR-4353 PO (15:38)
[2020-01-21] MEDS ORDERED: FERR325T28 PO (15:38)
[2020-01-21] MEDS ORDERED: METH1TAB31 PO (15:38)
[2020-01-21] MEDS ORDERED: FLO0.4C PO (15:38)
[2020-01-21] MEDS ORDERED: ferrous sulfate 325mg tablet PO PRN (15:40)
[2020-01-21] MEDS: levoTHYROXINE 100mcg tablet PO SCH (15:40)
[2020-01-21] MEDS ORDERED: lactulose 20gm/30ml cup PO ONE (15:40)
[2020-01-21] MEDS ORDERED: morphine 2 MG/ML inj. syringe IV ONE (15:45)
[2020-01-21 15:57] LABS: HEMOGLOBIN A1C 8.9 % (4.5-6.2)
[2020-01-21] MEDS ORDERED: LIDOcaine 2% 10ml TOPICAL JELLY (Urojet) TP ONE (16:20)
[2020-01-21] MEDS ORDERED: glucagon, human recombinant 1mg kit SUBCUT PRN (16:20)
[2020-01-21] MEDS ORDERED: MESSAGE TO PHARMACY PO ONE (16:20)
[2020-01-21] MEDS ORDERED: dextrose 50%-water 50ml dispensing syringe IV PRN ×3 (16:20→19:50)
[2020-01-21] MEDS ORDERED: insulin regular, human U-100 3ml vial - multi-dose SQ SCH (16:20)
[2020-01-21] MEDS ORDERED: dextrose ORAL solution 15 GM/59 ML bottle PO PRN ×2 (16:20)
[2020-01-21] MEDS ORDERED: INSU100V12 SQ ×2 (16:41)
[2020-01-21] MEDS ORDERED: POTA8CAP20 PO (16:41)
[2020-01-21 17:01] LABS: ANION GAP 6 (8-16); BLOOD UREA NITROGEN 71 MG/DL (7-18); BUN/CREATININE RATIO 37.6 (6.6-38.0); CALCIUM 9.1 MG/DL (8.5-10.1); CHLORIDE 84 MMOL/L (99-107); CREATININE 1.89 MG/DL (0.40-0.90); GLUCOSE 420 MG/DL (70-104); POTASSIUM 5.3 MMOL/L (3.5-5.1); TOTAL CARBON DIOXIDE 24.1 MMOL/L (24-32); eGFR 26 ML/MIN
[2020-01-21] MEDS ORDERED: iohexol 300 MG/1 ML 50ml polymer ONE (17:03)
[2020-01-21 17:04] LABS: SODIUM 114 MMOL/L (135-145)
[2020-01-21] MEDS ORDERED: insulin regular, human 10 units/0.1 ml syringe IV ONE (17:20)
[2020-01-21] MEDS ORDERED: vancomycin/NS 1 GM ADD-VANTAGE 250 ML IV SCH (17:36)
[2020-01-21] MEDS ORDERED: fentaNYL/PF 50MCG/1 ML 2ML syringe ONE (17:41)
[2020-01-21] MEDS ORDERED: phenylephrine 10mg/ml inj. ONE (17:45)
[2020-01-21] MEDS ORDERED: sevoflurane 250ml liquid IH ONE (17:45)
[2020-01-21] MEDS ORDERED: etomidate 2mg/ml inj. ONE (17:45)
[2020-01-21] MEDS ORDERED: midazolam 2 mg/2 ml injection ONE (17:56)
--- NOTE | 2020-01-21 18:59 | NUR ---
Received from OR via , accompanied by Anesthesiologist DR RYAN and report given by Anesthesiolgist. SEDATED AND VENTED. VITALS STABLE DOES NOT RESPOND.BATES WITH DARK URINE.
[2020-01-21] MEDS ORDERED: fentaNYL/PF 50MCG/1 ML 2ML syringe IV PRN (19:25)
[2020-01-21] MEDS ORDERED: ipratropium/albuterol 3ml nebule NEB PRN (19:25)
[2020-01-21] MEDS ORDERED: midazolam 2 mg/2 ml injection IV PRN (19:25)
[2020-01-21 19:36] LABS: ABG BASE EXCESS -9.1 mmol/L (-2.0-2.0); ABG HCO3 18.4 mmol/L (22.0-26.0); ABG OXYGEN SATURATION 99.9 % (94-97); ABG PCO2 (T) 43.9 mmHg (32.0-45.0); ABG PO2 (T) 469.5 mmHg (75.0-100.0); FCOHb 0.1 % (0.0-3.9); FO2Hb 99.8 % (94-97); PATIENT TEMPERATURE 35.6; PEEP 5 cm H2O; RESPIRATORY RATE 12 b/min; TIDAL VOLUME 450 mL; TOTAL HEMOGLOBIN 10.1 G/dl (12.0-16.0)
[2020-01-21] MEDS: heparin, porcine 5000 units/ml vial SQ SCH (20:00)
[2020-01-21] MEDS: K and/or MAG REPLACEMENT MC SCH (20:00)
[2020-01-21] MEDS: midazolam 100mg in NS 100ml 100 ML IV PRN ×2 (20:21→20:38)
[2020-01-21] MEDS: FENTANYL-0.9 % NACL/PF 100 ML IV PRN ×2 (20:21→20:37)
[2020-01-21 20:57] LABS: BASOPHILS % (AUTO) 0.1 % (0-1); EOSINOPHILS # (AUTO) 0.1 X10'3 (0-0.9); EOSINOPHILS % (AUTO) 0.4 % (0-6); HEMATOCRIT 28.4 % (35.0-45.0); HEMOGLOBIN 9.4 g/dl (12.0-16.0); LYMPHOCYTES # (AUTO) 1.7 X10'3 (1.1-4.8); LYMPHOCYTES % (AUTO) 9.9 % (21-51); MEAN CORPUSCULAR HEMOGLOBIN 24.8 PG (27.0-31.0); MEAN CORPUSCULAR VOLUME 75.1 FL (78-98); MEAN PLATELET VOLUME 6.3 FL (7.4-10.4); MONOCYTES # (AUTO) 0.7 X10'3 (0-0.9); MONOCYTES % (AUTO) 4.4 % (2-12); NEUTROPHILS # (AUTO) 14.3 X10'3 (1.8-7.7); NEUTROPHILS % (AUTO) 85.2 % (42-75); PLATELET COUNT 522 X10'3 (140-440); RED BLOOD COUNT 3.78 X10'6 (4.20-5.60); RED CELL DISTRIBUTION WIDTH 17.7 % (11.5-14.5); WHITE BLOOD COUNT 16.8 X10'3 (4.5-11.0)
--- NOTE | 2020-01-21 20:59 | NUR ---
PT REMAINS SEDATED AND ON MECHANICAL VENT. VITALS STABLE. IN NO APPARENT DISCOMFORT. REPORT GIVEN TO RECEIVING ICU NURSE PT IN ICU RM 42
[2020-01-21] MEDS: tamsulosin 0.4mg capsule PO SCH (21:00)
[2020-01-21] MEDS: atorvastatin 20mg tablet PO SCH (21:00)
[2020-01-21] MEDS: aripiprazole 5mg tablet PO SCH (21:00)
[2020-01-21] MEDS: sodium chloride 3% IV.soln 500 ML IV SCH (21:00)
[2020-01-21] MEDS: LORazepam 0.5 MG tablet PO SCH (21:00)
[2020-01-21] MEDS: insulin glargine (Lantus) pen - multi-dose SQ SCH (21:00)
--- NOTE | 2020-01-21 21:00 | NUR ---
Patient in room ICU 2041. I have received report from DENNIS Burk and had the opportunity to ask questions and assume patient care. Patient is currently on versed, fentanyl, 0.9% NS and insulin drips at this time. Hypertonic saline solution is not running at this time. Current sodium level is 124. Per MD order, 0.9% NS should be running at 150mL/hr at this time in lieu of hypertonic saline solution. Rate changed. Patient vitals are stable, however, BP is soft and MAP is in the high 50's. Binh Hurley contacted and an order is rec'd for levophed gtt. Currently insulin gtt is running at 4U and current BG is 256. Will continue to monitor patient.
[2020-01-21 21:10] LABS: ALANINE AMINOTRANSFERASE 73 U/L (12-78); ALBUMIN 1.4 G/DL (3.4-5.0); ALBUMIN/GLOBULIN RATIO 0.3 (1.1-1.5); ALKALINE PHOSPHATASE 121 IU/L (46-116); ANION GAP 11 (8-16); ASPARTATE AMINO TRANSFERASE 45 U/L (10-37); BILIRUBIN,TOTAL 0.2 MG/DL (0.1-1.0); BLOOD UREA NITROGEN 58 MG/DL (7-18); BUN/CREATININE RATIO 38.9 (6.6-38.0); CALCIUM 7.4 MG/DL (8.5-10.1); CHLORIDE 95 MMOL/L (99-107); CREATININE 1.49 MG/DL (0.40-0.90); GLUCOSE 246 MG/DL (70-104); SODIUM 124 MMOL/L (135-145); TOTAL CARBON DIOXIDE 18.1 MMOL/L (24-32); eGFR 34 ML/MIN
[2020-01-21] MEDS ORDERED: NORepinephrine 8mg/ 250ml NS 250 ML IV ONE ×2 (21:25→21:30)
[2020-01-21] MEDS ORDERED: NORepinephrine 8mg/ 250ml NS 250 ML IV SCH (21:30)
[2020-01-21] MEDS: NORepinephrine 8mg/ 250ml NS 250 ML IV SCH (21:40)
[2020-01-21] MEDS: dextrose 50%-water 50ml dispensing syringe IV PRN (23:13)
--- NOTE | 2020-01-21 23:15 | NUR ---
Current BG is 52. Dextrose given per MD order. See emar for further info. Will continue to monitor.
[2020-01-21 23:54] LABS: ALBUMIN 1.5 G/DL (3.4-5.0); ANION GAP 9 (8-16); BLOOD UREA NITROGEN 56 MG/DL (7-18); BUN/CREATININE RATIO 40.9 (6.6-38.0); CALCIUM 7.7 MG/DL (8.5-10.1); CHLORIDE 98 MMOL/L (99-107); CREATININE 1.37 MG/DL (0.40-0.90); GLUCOSE 57 MG/DL (70-104); POTASSIUM 4.2 MMOL/L (3.5-5.1); SODIUM 127 MMOL/L (135-145); TOTAL CARBON DIOXIDE 19.8 MMOL/L (24-32); eGFR 37 ML/MIN
[2020-01-22] VITALS (24 sets, daily range): BP systolic 96–125; BP diastolic 42–57
[2020-01-22 02:51] LABS: ABG BASE EXCESS -5.7 mmol/L (-2.0-2.0); ABG HCO3 19.4 mmol/L (22.0-26.0); ABG OXYGEN SATURATION 98.9 % (94-97); ABG PCO2 (T) 34.7 mmHg (32.0-45.0); ABG PO2 (T) 139.5 mmHg (75.0-100.0); FCOHb 0.3 % (0.0-3.9); FMetHb 0.3 % (0.0-1.5); FO2Hb 98.3 % (94-97); PEEP 5 cm H2O; RESPIRATORY RATE 14 b/min; TIDAL VOLUME 450 mL; TOTAL HEMOGLOBIN 9.8 G/dl (12.0-16.0)
[2020-01-22 02:59] LABS: BASOPHILS % (AUTO) 0.2 % (0-1); EOSINOPHILS # (AUTO) 0.3 X10'3 (0-0.9); EOSINOPHILS % (AUTO) 1.3 % (0-6); HEMATOCRIT 28.4 % (35.0-45.0); HEMOGLOBIN 9.2 g/dl (12.0-16.0); LYMPHOCYTES # (AUTO) 1.3 X10'3 (1.1-4.8); MEAN CORPUSCULAR HEMOGLOBIN 24.4 PG (27.0-31.0); MEAN CORPUSCULAR HGB CONC 32.5 g/dL (33.0-36.5); MEAN CORPUSCULAR VOLUME 75.2 FL (78-98); MEAN PLATELET VOLUME 6.2 FL (7.4-10.4); MONOCYTES % (AUTO) 4.4 % (2-12); NEUTROPHILS % (AUTO) 88.1 % (42-75); PLATELET COUNT 554 X10'3 (140-440); RED BLOOD COUNT 3.78 X10'6 (4.20-5.60); RED CELL DISTRIBUTION WIDTH 17.6 % (11.5-14.5); WHITE BLOOD COUNT 21.6 X10'3 (4.5-11.0)
[2020-01-22 03:07] LABS: ALBUMIN 1.5 G/DL (3.4-5.0); ANION GAP 9 (8-16); BLOOD UREA NITROGEN 55 MG/DL (7-18); BUN/CREATININE RATIO 39.9 (6.6-38.0); CALCIUM 7.9 MG/DL (8.5-10.1); CHLORIDE 98 MMOL/L (99-107); CREATININE 1.38 MG/DL (0.40-0.90); GLUCOSE 91 MG/DL (70-104); MAGNESIUM 1.9 MG/DL (1.5-2.4); PHOSPHORUS 3.9 MG/DL (2.3-4.5); POTASSIUM 4.3 MMOL/L (3.5-5.1); SODIUM 127 MMOL/L (135-145); TOTAL CARBON DIOXIDE 20.4 MMOL/L (24-32); eGFR 37 ML/MIN
[2020-01-22 04:34] LABS: ALBUMIN 1.6 G/DL (3.4-5.0); ANION GAP 10 (8-16); BLOOD UREA NITROGEN 54 MG/DL (7-18); CALCIUM 7.8 MG/DL (8.5-10.1); CHLORIDE 99 MMOL/L (99-107); CREATININE 1.35 MG/DL (0.40-0.90); GLUCOSE 78 MG/DL (70-104); POTASSIUM 4.5 MMOL/L (3.5-5.1); SODIUM 129 MMOL/L (135-145); TOTAL CARBON DIOXIDE 20.1 MMOL/L (24-32); eGFR 38 ML/MIN
[2020-01-22 04:56] LABS: ANISOCYTOSIS 2+; MICROCYTOSIS 1+; PLATELET ESTIMATE INCREASED; TOTAL CELLS COUNTED 100
--- NOTE | 2020-01-22 06:30 | NUR ---
Patient in room ICU 2041. I have received report from Feli COLLINS and had the opportunity to ask questions and assume patient care.
[2020-01-22] MEDS ORDERED: desmopressin 4 MCG/1 ML amp SQ STA (07:45)
[2020-01-22 07:48] LABS: ALBUMIN 1.5 G/DL (3.4-5.0); ANION GAP 8 (8-16); BLOOD UREA NITROGEN 49 MG/DL (7-18); BUN/CREATININE RATIO 37.7 (6.6-38.0); CALCIUM 7.7 MG/DL (8.5-10.1); CHLORIDE 101 MMOL/L (99-107); GLUCOSE 73 MG/DL (70-104); POTASSIUM 4.4 MMOL/L (3.5-5.1); SODIUM 129 MMOL/L (135-145); TOTAL CARBON DIOXIDE 19.9 MMOL/L (24-32); eGFR 40 ML/MIN
[2020-01-22] MEDS: levoTHYROXINE 100mcg tablet PO SCH (08:00)
[2020-01-22] MEDS: K and/or MAG REPLACEMENT MC SCH ×2 (08:00→20:00)
[2020-01-22] MEDS: LORazepam 0.5 MG tablet PO SCH ×3 (08:00→18:33)
[2020-01-22] MEDS: dextrose 50%-water 50ml dispensing syringe IV PRN (09:43)
[2020-01-22] MEDS: FENTANYL-0.9 % NACL/PF 100 ML IV PRN (09:52)
[2020-01-22 10:08] LABS: ALBUMIN 1.5 G/DL (3.4-5.0); ANION GAP 8 (8-16); BLOOD UREA NITROGEN 47 MG/DL (7-18); BUN/CREATININE RATIO 35.6 (6.6-38.0); CALCIUM 7.9 MG/DL (8.5-10.1); CHLORIDE 102 MMOL/L (99-107); CREATININE 1.32 MG/DL (0.40-0.90); GLUCOSE 72 MG/DL (70-104); POTASSIUM 4.5 MMOL/L (3.5-5.1); SODIUM 130 MMOL/L (135-145); TOTAL CARBON DIOXIDE 19.8 MMOL/L (24-32); eGFR 39 ML/MIN
[2020-01-22] MEDS: sodium chloride 3% IV.soln 500 ML IV SCH (10:10)
[2020-01-22] MEDS ORDERED: bisacodyl 10mg suppository rectal RC PRN (10:25)
[2020-01-22] MEDS: heparin, porcine 5000 units/ml vial SQ SCH ×2 (10:50→20:48)
[2020-01-22 12:28] LABS: ALBUMIN 1.5 G/DL (3.4-5.0); ANION GAP 7 (8-16); BLOOD UREA NITROGEN 46 MG/DL (7-18); BUN/CREATININE RATIO 33.3 (6.6-38.0); CALCIUM 8.1 MG/DL (8.5-10.1); CHLORIDE 102 MMOL/L (99-107); CREATININE 1.38 MG/DL (0.40-0.90); GLUCOSE 103 MG/DL (70-104); POTASSIUM 4.5 MMOL/L (3.5-5.1); SODIUM 129 MMOL/L (135-145); TOTAL CARBON DIOXIDE 20.1 MMOL/L (24-32); eGFR 37 ML/MIN
[2020-01-22 14:24] LABS: ALBUMIN 1.5 G/DL (3.4-5.0); ANION GAP 11 (8-16); BLOOD UREA NITROGEN 46 MG/DL (7-18); BUN/CREATININE RATIO 32.9 (6.6-38.0); CHLORIDE 102 MMOL/L (99-107); GLUCOSE 93 MG/DL (70-104); POTASSIUM 4.6 MMOL/L (3.5-5.1); SODIUM 132 MMOL/L (135-145); TOTAL CARBON DIOXIDE 19.1 MMOL/L (24-32); eGFR 37 ML/MIN
--- NOTE | 2020-01-22 14:50 | NUR ---
Extubated patient at 1430, on NC tolerating well
[2020-01-22] MEDS ORDERED: vancomycin inj. 750 MG in normal saline 250ml IV soln 250 ML IV SCH (17:00)
[2020-01-22 17:08] LABS: ALBUMIN 1.5 G/DL (3.4-5.0); ANION GAP 11 (8-16); BLOOD UREA NITROGEN 44 MG/DL (7-18); BUN/CREATININE RATIO 30.6 (6.6-38.0); CALCIUM 8.2 MG/DL (8.5-10.1); CHLORIDE 103 MMOL/L (99-107); CREATININE 1.44 MG/DL (0.40-0.90); GLUCOSE 94 MG/DL (70-104); POTASSIUM 4.6 MMOL/L (3.5-5.1); SODIUM 133 MMOL/L (135-145); TOTAL CARBON DIOXIDE 19.2 MMOL/L (24-32); eGFR 35 ML/MIN
[2020-01-22] MEDS: piperacillin/tazo 3.375gm/50ml 50 ML IV SCH (18:23)
[2020-01-22] MEDS: atorvastatin 20mg tablet PO SCH (18:33)
[2020-01-22] MEDS: tamsulosin 0.4mg capsule PO SCH (18:33)
[2020-01-22] MEDS: aripiprazole 5mg tablet PO SCH (18:33)
--- NOTE | 2020-01-22 18:36 | NUR ---
Patient in room ICU 2041. I have received report from Brook COLLINS and had the opportunity to ask questions and assume patient care.
[2020-01-22 19:33] LABS: ALBUMIN 1.5 G/DL (3.4-5.0); ANION GAP 8 (8-16); BLOOD UREA NITROGEN 43 MG/DL (7-18); BUN/CREATININE RATIO 28.7 (6.6-38.0); CALCIUM 8.3 MG/DL (8.5-10.1); CHLORIDE 105 MMOL/L (99-107); GLUCOSE 89 MG/DL (70-104); POTASSIUM 4.3 MMOL/L (3.5-5.1); SODIUM 132 MMOL/L (135-145); TOTAL CARBON DIOXIDE 18.7 MMOL/L (24-32); eGFR 34 ML/MIN
[2020-01-22] MEDS: desmopressin 4 MCG/1 ML amp SQ SCH (19:43)
[2020-01-22] MEDS ORDERED: mineral oil/petrolatum ophthal oint EACHEYE SCH (20:00)
[2020-01-22] MEDS: insulin glargine (Lantus) pen - multi-dose SQ SCH (20:34)
[2020-01-22 23:06] LABS: ALBUMIN 1.5 G/DL (3.4-5.0); ANION GAP 10 (8-16); BLOOD UREA NITROGEN 43 MG/DL (7-18); BUN/CREATININE RATIO 27.9 (6.6-38.0); CALCIUM 8.1 MG/DL (8.5-10.1); CHLORIDE 105 MMOL/L (99-107); CREATININE 1.54 MG/DL (0.40-0.90); GLUCOSE 100 MG/DL (70-104); POTASSIUM 4.1 MMOL/L (3.5-5.1); SODIUM 134 MMOL/L (135-145); TOTAL CARBON DIOXIDE 18.7 MMOL/L (24-32); eGFR 33 ML/MIN
[2020-01-23] VITALS (22 sets, daily range): BP systolic 92–132; BP diastolic 38–62
[2020-01-23 00:51] LABS: ALBUMIN 1.4 G/DL (3.4-5.0); ANION GAP 11 (8-16); BLOOD UREA NITROGEN 43 MG/DL (7-18); BUN/CREATININE RATIO 28.1 (6.6-38.0); CALCIUM 8.1 MG/DL (8.5-10.1); CHLORIDE 106 MMOL/L (99-107); CREATININE 1.53 MG/DL (0.40-0.90); GLUCOSE 104 MG/DL (70-104); POTASSIUM 4.1 MMOL/L (3.5-5.1); SODIUM 136 MMOL/L (135-145); TOTAL CARBON DIOXIDE 19.3 MMOL/L (24-32); eGFR 33 ML/MIN
[2020-01-23 00:52] LABS: CLARITY,URINE TURBID (Clear); COLOR,URINE YELLOW (Yellow); GLUCOSE, URINE NEGATIVE (Neg); KETONES,URINE NEGATIVE (Neg); LEUKOCYTE ESTERASE ,URINE LARGE (Neg); NITRITES, URINE NEGATIVE (Neg); OCCULT BLOOD,URINE LARGE (Neg); PH,URINE 6.5 (4.8-8.0); PROTEIN,URINE 100 mg/dl (Neg); UROBILINOGEN,URINE 0.2 E.U/dL (0.2-1.0)
[2020-01-23 00:54] LABS: UA COLLECTION TYPE FOLEY CATH
[2020-01-23 00:57] LABS: TOTAL PROTEIN,URINE RANDOM 177.1 MG/DL
[2020-01-23 01:05] LABS: AMORPHOUS URATES 3+; BACTERIA,URINE 3+ /HPF (Neg); MUCUS STRANDS NONE SEEN /LPF (Neg); SQUAMOUS EPITHELIAL CELL,UR NONE SEEN /LPF (FEW); WBC,URINE TNTC /HPF (0-4)
[2020-01-23 01:34] LABS: UA EOSINOPHILS NO EOS /HPF
[2020-01-23 02:44] LABS: BASOPHILS % (AUTO) 0.2 % (0-1); EOSINOPHILS # (AUTO) 0.1 X10'3 (0-0.9); EOSINOPHILS % (AUTO) 0.6 % (0-6); HEMATOCRIT 26.7 % (35.0-45.0); HEMOGLOBIN 8.5 g/dl (12.0-16.0); LYMPHOCYTES % (AUTO) 13.9 % (21-51); MEAN CORPUSCULAR HEMOGLOBIN 24.5 PG (27.0-31.0); MEAN CORPUSCULAR VOLUME 76.5 FL (78-98); MEAN PLATELET VOLUME 6.1 FL (7.4-10.4); MONOCYTES # (AUTO) 1.7 X10'3 (0-0.9); MONOCYTES % (AUTO) 11.9 % (2-12); NEUTROPHILS # (AUTO) 10.4 X10'3 (1.8-7.7); NEUTROPHILS % (AUTO) 73.4 % (42-75); PLATELET COUNT 529 X10'3 (140-440); RED BLOOD COUNT 3.49 X10'6 (4.20-5.60); RED CELL DISTRIBUTION WIDTH 17.9 % (11.5-14.5); WHITE BLOOD COUNT 14.2 X10'3 (4.5-11.0)
[2020-01-23 03:02] LABS: ALBUMIN 1.4 G/DL (3.4-5.0); ANION GAP 12 (8-16); BLOOD UREA NITROGEN 43 MG/DL (7-18); BUN/CREATININE RATIO 28.7 (6.6-38.0); CALCIUM 8.2 MG/DL (8.5-10.1); CHLORIDE 106 MMOL/L (99-107); GLUCOSE 109 MG/DL (70-104); MAGNESIUM 2.2 MG/DL (1.5-2.4); PHOSPHORUS 3.8 MG/DL (2.3-4.5); SODIUM 136 MMOL/L (135-145); TOTAL CARBON DIOXIDE 17.6 MMOL/L (24-32); eGFR 34 ML/MIN
[2020-01-23 05:16] LABS: ALBUMIN 1.5 G/DL (3.4-5.0); ANION GAP 10 (8-16); BLOOD UREA NITROGEN 42 MG/DL (7-18); CALCIUM 8.5 MG/DL (8.5-10.1); CHLORIDE 107 MMOL/L (99-107); GLUCOSE 114 MG/DL (70-104); POTASSIUM 3.9 MMOL/L (3.5-5.1); SODIUM 136 MMOL/L (135-145); TOTAL CARBON DIOXIDE 18.7 MMOL/L (24-32); eGFR 34 ML/MIN
[2020-01-23] MEDS: levoTHYROXINE 100mcg tablet PO SCH (08:00)
[2020-01-23] MEDS: desmopressin 4 MCG/1 ML amp SQ SCH (08:00)
[2020-01-23] MEDS: K and/or MAG REPLACEMENT MC SCH ×2 (08:00→20:00)
[2020-01-23] MEDS: LORazepam 0.5 MG tablet PO SCH ×3 (08:00→20:29)
[2020-01-23 08:02] LABS: ALBUMIN 1.5 G/DL (3.4-5.0); ANION GAP 10 (8-16); BLOOD UREA NITROGEN 42 MG/DL (7-18); BUN/CREATININE RATIO 28.6 (6.6-38.0); CALCIUM 8.4 MG/DL (8.5-10.1); CHLORIDE 107 MMOL/L (99-107); CREATININE 1.47 MG/DL (0.40-0.90); GLUCOSE 116 MG/DL (70-104); SODIUM 136 MMOL/L (135-145); TOTAL CARBON DIOXIDE 18.7 MMOL/L (24-32); eGFR 35 ML/MIN
[2020-01-23] MEDS: NORepinephrine 8mg/ 250ml NS 250 ML IV SCH (08:13)
[2020-01-23] MEDS: piperacillin/tazo 3.375gm/50ml 50 ML IV SCH ×3 (09:20→23:22)
[2020-01-23] MEDS: heparin, porcine 5000 units/ml vial SQ SCH ×2 (09:21→20:28)
[2020-01-23 09:39] LABS: ALBUMIN 1.5 G/DL (3.4-5.0); ANION GAP 12 (8-16); BLOOD UREA NITROGEN 43 MG/DL (7-18); BUN/CREATININE RATIO 30.5 (6.6-38.0); CALCIUM 8.5 MG/DL (8.5-10.1); CHLORIDE 107 MMOL/L (99-107); CREATININE 1.41 MG/DL (0.40-0.90); GLUCOSE 121 MG/DL (70-104); SODIUM 137 MMOL/L (135-145); TOTAL CARBON DIOXIDE 18.1 MMOL/L (24-32); eGFR 36 ML/MIN
[2020-01-23 09:47] LABS: SODIUM,URINE RANDOM 48 MEQ/L
[2020-01-23 09:53] LABS: OSMOLALITY UA 348 MOSM/K (50-1400)
[2020-01-23 11:49] LABS: ALBUMIN 1.5 G/DL (3.4-5.0); ANION GAP 10 (8-16); BLOOD UREA NITROGEN 41 MG/DL (7-18); BUN/CREATININE RATIO 28.3 (6.6-38.0); CALCIUM 8.9 MG/DL (8.5-10.1); CHLORIDE 112 MMOL/L (99-107); CREATININE 1.45 MG/DL (0.40-0.90); GLUCOSE 128 MG/DL (70-104); POTASSIUM 4.1 MMOL/L (3.5-5.1); SODIUM 141 MMOL/L (135-145); TOTAL CARBON DIOXIDE 18.9 MMOL/L (24-32); eGFR 35 ML/MIN
[2020-01-23 11:58] LABS: SODIUM,URINE RANDOM 48 MEQ/L
[2020-01-23 12:02] LABS: OSMOLALITY UA 351 MOSM/K (50-1400)
[2020-01-23] MEDS ORDERED: CefTRIAXone/D5W-Rocephin 1gm 50 ML IV ONE (12:10)
[2020-01-23 15:40] LABS: ALBUMIN 1.5 G/DL (3.4-5.0); ANION GAP 14 (8-16); BLOOD UREA NITROGEN 41 MG/DL (7-18); BUN/CREATININE RATIO 28.5 (6.6-38.0); CALCIUM 8.6 MG/DL (8.5-10.1); CHLORIDE 112 MMOL/L (99-107); CREATININE 1.44 MG/DL (0.40-0.90); GLUCOSE 148 MG/DL (70-104); SODIUM 142 MMOL/L (135-145); TOTAL CARBON DIOXIDE 16.5 MMOL/L (24-32); eGFR 35 ML/MIN
[2020-01-23 18:10] LABS: ALBUMIN 1.5 G/DL (3.4-5.0); ANION GAP 15 (8-16); BLOOD UREA NITROGEN 42 MG/DL (7-18); BUN/CREATININE RATIO 27.5 (6.6-38.0); CALCIUM 8.7 MG/DL (8.5-10.1); CHLORIDE 108 MMOL/L (99-107); CREATININE 1.53 MG/DL (0.40-0.90); GLUCOSE 156 MG/DL (70-104); POTASSIUM 4.1 MMOL/L (3.5-5.1); SODIUM 140 MMOL/L (135-145); TOTAL CARBON DIOXIDE 16.6 MMOL/L (24-32); eGFR 33 ML/MIN
--- NOTE | 2020-01-23 19:52 | NUR ---
Problems reprioritized. Patient report given, questions answered & plan of care reviewed with RN Alley.
[2020-01-23] MEDS: tamsulosin 0.4mg capsule PO SCH (20:29)
[2020-01-23] MEDS: insulin glargine (Lantus) pen - multi-dose SQ SCH (20:29)
[2020-01-23] MEDS: atorvastatin 20mg tablet PO SCH (20:29)
[2020-01-23] MEDS: aripiprazole 5mg tablet PO SCH (20:29)
[2020-01-24] VITALS (17 sets, daily range): BP systolic 108–131; BP diastolic 51–90
[2020-01-24 02:44] LABS: ALBUMIN 1.5 G/DL (3.4-5.0); ANION GAP 15 (8-16); BLOOD UREA NITROGEN 41 MG/DL (7-18); BUN/CREATININE RATIO 25.3 (6.6-38.0); CALCIUM 8.9 MG/DL (8.5-10.1); CHLORIDE 110 MMOL/L (99-107); CREATININE 1.62 MG/DL (0.40-0.90); GLUCOSE 195 MG/DL (70-104); MAGNESIUM 2.5 MG/DL (1.5-2.4); PHOSPHORUS 3.3 MG/DL (2.3-4.5); POTASSIUM 3.9 MMOL/L (3.5-5.1); SODIUM 142 MMOL/L (135-145); TOTAL CARBON DIOXIDE 16.6 MMOL/L (24-32); eGFR 31 ML/MIN
[2020-01-24 02:54] LABS: BASOPHILS % (AUTO) 0.1 % (0-1); EOSINOPHILS # (AUTO) 0.1 X10'3 (0-0.9); EOSINOPHILS % (AUTO) 0.8 % (0-6); HEMATOCRIT 27.2 % (35.0-45.0); HEMOGLOBIN 8.8 g/dl (12.0-16.0); LYMPHOCYTES # (AUTO) 2.3 X10'3 (1.1-4.8); LYMPHOCYTES % (AUTO) 19.8 % (21-51); MEAN CORPUSCULAR HEMOGLOBIN 25.2 PG (27.0-31.0); MEAN CORPUSCULAR HGB CONC 32.4 g/dL (33.0-36.5); MEAN CORPUSCULAR VOLUME 77.7 FL (78-98); MONOCYTES # (AUTO) 1.5 X10'3 (0-0.9); MONOCYTES % (AUTO) 13.3 % (2-12); NEUTROPHILS # (AUTO) 7.6 X10'3 (1.8-7.7); PLATELET COUNT 554 X10'3 (140-440); RED BLOOD COUNT 3.49 X10'6 (4.20-5.60); RED CELL DISTRIBUTION WIDTH 18.4 % (11.5-14.5); WHITE BLOOD COUNT 11.6 X10'3 (4.5-11.0)
--- NOTE | 2020-01-24 06:00 | NUR ---
Patient in room ICU 2041. I have received report from Alley COLLINS and had the opportunity to ask questions and assume patient care.
--- NOTE | 2020-01-24 06:31 | NUR ---
Problems reprioritized. Patient report given, questions answered & plan of care reviewed with Yuridia COLLINS.
[2020-01-24] MEDS: K and/or MAG REPLACEMENT MC SCH ×2 (08:00→21:39)
[2020-01-24] MEDS: piperacillin/tazo 3.375gm/50ml 50 ML IV SCH (08:32)
[2020-01-24] MEDS: heparin, porcine 5000 units/ml vial SQ SCH ×2 (08:34→19:56)
[2020-01-24] MEDS: LORazepam 0.5 MG tablet PO SCH ×3 (08:46→21:30)
[2020-01-24] MEDS: levoTHYROXINE 100mcg tablet PO SCH (08:46)
--- NOTE | 2020-01-24 11:00 | NUR ---
Pt with A1c 8.9%, currently documented as A/O x 1 and confused, DM education not appropriate at this time. Pt s/p BSS this morning with ST recs pureed food with thin liquids d/t difficulty chewing solids due to lack of teeth. Diet order has been adjusted as such, pending first meal since diet advancement. Will continue to follow and monitor need for nutrition intervention. Addendum: 01/24/20 at [address] Amended: Links added.
--- NOTE | 2020-01-24 16:46 | NUR ---
Called and got report from Cristiane COLLINS. She agreed to DC ICU orders including NPO diet, q1 h accuchecks, norepi drip, insulin drip etc. They are current checking BG ACHS. States she needs the room over there so she will be bringing the pt. shortly. Notified bus washer pt. from tele to surgical. Will be back on floor in 10 min. She will get evening accucheck before bringing pt.
[2020-01-24 17:10] LABS: OCCULT BLOOD STOOL POSITIVE (Neg)
--- NOTE | 2020-01-24 17:45 | NUR ---
Pt. tucked in bed. Called Rick to get accucheck order. Humalog order already. very bonnie mosquera.
--- NOTE | 2020-01-24 18:00 | NUR ---
Went in to get pt. VS. Pt. was painting with stool on her hands and yelling out. stool everywhere on hands, gown and bed. Pt. reaching out to touch staff. Gowned staff repositioned and cleaned patient. Roomate in tears and asking about going home. Discussed with viscose cellar charge hand who determined a room change might be in the future.
--- NOTE | 2020-01-24 18:30 | NUR ---
Patient in room U 3028. I have received report from DENNIS Srinivasan and had the opportunity to ask questions and assume patient care. Addendum: 01/24/20 at 1936 by Bozena Guillen RN Amended: Links added.
--- NOTE | 2020-01-24 18:52 | NUR ---
Gave report to Amina COLLINS. Pt. moved to room 302.
--- NOTE | 2020-01-24 19:50 | NUR ---
Problems reprioritized. Patient report given, questions answered & plan of care reviewed with RN. Addendum: 01/24/20 at 2030 by Bozena Guillen RN Amended: Links added.
[2020-01-24] MEDS: lactobacillus rhamnosus 10,000 MMU CELLS/CAPSULE PO SCH (19:57)
--- NOTE | 2020-01-24 20:00 | NUR ---
Patient in room PCU 3028. I have received report from Amina COLLINS and had the opportunity to ask questions and assume patient care.
[2020-01-24] MEDS: insulin Lispro (HumaLOG) vial - multi-dose SQ SCH (20:04)
[2020-01-24] MEDS: atorvastatin 20mg tablet PO SCH (21:30)
[2020-01-24] MEDS: tamsulosin 0.4mg capsule PO SCH (21:30)
[2020-01-24] MEDS: aripiprazole 5mg tablet PO SCH (21:30)
[2020-01-24] MEDS: insulin glargine (Lantus) pen - multi-dose SQ SCH (21:39)
[2020-01-25 02:00] VITALS: BP 106/50
[2020-01-25 05:51] LABS: BASOPHILS # (AUTO) 0.1 X10'3 (0-0.2); BASOPHILS % (AUTO) 0.6 % (0-1); EOSINOPHILS # (AUTO) 0.4 X10'3 (0-0.9); EOSINOPHILS % (AUTO) 4.2 % (0-6); HEMOGLOBIN 8.6 g/dl (12.0-16.0); LYMPHOCYTES # (AUTO) 2.3 X10'3 (1.1-4.8); LYMPHOCYTES % (AUTO) 22.1 % (21-51); MEAN CORPUSCULAR HEMOGLOBIN 25.5 PG (27.0-31.0); MEAN CORPUSCULAR VOLUME 77.2 FL (78-98); MEAN PLATELET VOLUME 5.9 FL (7.4-10.4); MONOCYTES # (AUTO) 1.3 X10'3 (0-0.9); MONOCYTES % (AUTO) 12.3 % (2-12); NEUTROPHILS # (AUTO) 6.2 X10'3 (1.8-7.7); NEUTROPHILS % (AUTO) 60.8 % (42-75); PLATELET COUNT 517 X10'3 (140-440); RED BLOOD COUNT 3.37 X10'6 (4.20-5.60); RED CELL DISTRIBUTION WIDTH 18.9 % (11.5-14.5); WHITE BLOOD COUNT 10.2 X10'3 (4.5-11.0)
[2020-01-25 06:00] VITALS: BP 114/47
[2020-01-25 06:06] LABS: PHOSPHORUS 2.3 MG/DL (2.3-4.5)
--- NOTE | 2020-01-25 06:21 | NUR ---
Problems reprioritized. Patient report given, questions answered & plan of care reviewed with Camilla COLLINS.
[2020-01-25] MEDS ORDERED: VANCOMYCIN LEVEL IV ONE (06:30)
--- NOTE | 2020-01-25 07:07 | NUR ---
Patient in room PCU 3028. I have received report from DENNIS Peres and had the opportunity to ask questions and assume patient care.
[2020-01-25] MEDS: CefTRIAXone/D5W-Rocephin 1gm 50 ML IV SCH (07:52)
[2020-01-25] MEDS: levoTHYROXINE 100mcg tablet PO SCH (07:53)
[2020-01-25] MEDS: lactobacillus rhamnosus 10,000 MMU CELLS/CAPSULE PO SCH ×2 (07:53→20:38)
[2020-01-25] MEDS: LORazepam 0.5 MG tablet PO SCH ×3 (07:53→20:38)
[2020-01-25] MEDS: heparin, porcine 5000 units/ml vial SQ SCH ×2 (07:55→20:39)
[2020-01-25] MEDS: K and/or MAG REPLACEMENT MC SCH ×2 (08:00→20:00)
[2020-01-25 09:43] LABS: ANISOCYTOSIS 2+; HYPOCHROMASIA 1+; MICROCYTOSIS 1+; PLATELET ESTIMATE INCREASED; TOTAL CELLS COUNTED 100
[2020-01-25 09:44] LABS: ROULEAUX 1+
[2020-01-25 11:00] VITALS: BP 96/46
[2020-01-25] MEDS: insulin Lispro (HumaLOG) vial - multi-dose SQ SCH ×2 (13:05→23:13)
--- NOTE | 2020-01-25 17:49 | NUR ---
Pt refused 1500 V/S.
[2020-01-25 18:15] VITALS: BP 108/53
--- NOTE | 2020-01-25 18:34 | NUR ---
Problems reprioritized. Patient report given, questions answered & plan of care reviewed with DENNIS Singh.
--- NOTE | 2020-01-25 18:45 | NUR ---
Patient in room PCU 3028. I have received report from DENNIS Sampson and had the opportunity to ask questions and assume patient care.
[2020-01-25] MEDS: atorvastatin 20mg tablet PO SCH (20:38)
[2020-01-25] MEDS: aripiprazole 5mg tablet PO SCH (20:38)
[2020-01-25] MEDS: tamsulosin 0.4mg capsule PO SCH (20:38)
[2020-01-25] MEDS: insulin glargine (Lantus) pen - multi-dose SQ SCH (23:12)
[2020-01-25 23:15] VITALS: BP 115/47
[2020-01-26 02:15] VITALS: BP 129/56
[2020-01-26 06:00] VITALS: BP 111/61
[2020-01-26 06:00] LABS: BASOPHILS # (AUTO) 0.1 X10'3 (0-0.2); BASOPHILS % (AUTO) 0.7 % (0-1); EOSINOPHILS # (AUTO) 0.4 X10'3 (0-0.9); HEMATOCRIT 26.3 % (35.0-45.0); HEMOGLOBIN 8.6 g/dl (12.0-16.0); LYMPHOCYTES % (AUTO) 22.1 % (21-51); MEAN CORPUSCULAR HEMOGLOBIN 25.2 PG (27.0-31.0); MEAN CORPUSCULAR HGB CONC 32.8 g/dL (33.0-36.5); MEAN CORPUSCULAR VOLUME 76.6 FL (78-98); MEAN PLATELET VOLUME 6.3 FL (7.4-10.4); MONOCYTES % (AUTO) 10.8 % (2-12); NEUTROPHILS # (AUTO) 5.5 X10'3 (1.8-7.7); NEUTROPHILS % (AUTO) 62.4 % (42-75); PLATELET COUNT 463 X10'3 (140-440); RED BLOOD COUNT 3.43 X10'6 (4.20-5.60); RED CELL DISTRIBUTION WIDTH 18.8 % (11.5-14.5); WHITE BLOOD COUNT 8.9 X10'3 (4.5-11.0)
[2020-01-26 06:12] LABS: ALANINE AMINOTRANSFERASE 49 U/L (12-78); ALBUMIN 1.6 G/DL (3.4-5.0); ALBUMIN/GLOBULIN RATIO 0.3 (1.1-1.5); ALKALINE PHOSPHATASE 95 IU/L (46-116); ANION GAP 7 (8-16); ASPARTATE AMINO TRANSFERASE 19 U/L (10-37); BILIRUBIN,TOTAL 0.2 MG/DL (0.1-1.0); BLOOD UREA NITROGEN 31 MG/DL (7-18); CALCIUM 8.9 MG/DL (8.5-10.1); CHLORIDE 107 MMOL/L (99-107); CREATININE 1.29 MG/DL (0.40-0.90); GLUCOSE 251 MG/DL (70-104); MAGNESIUM 2.1 MG/DL (1.5-2.4); PHOSPHORUS 2.8 MG/DL (2.3-4.5); POTASSIUM 3.9 MMOL/L (3.5-5.1); SODIUM 137 MMOL/L (135-145); TOTAL CARBON DIOXIDE 22.9 MMOL/L (24-32); TOTAL PROTEIN 6.6 G/DL (6.4-8.2); eGFR 40 ML/MIN
--- NOTE | 2020-01-26 06:27 | NUR ---
Problems reprioritized. Patient report given, questions answered & plan of care reviewed with DENNIS Sandoval.
[2020-01-26 07:13] LABS: ANISOCYTOSIS 2+; MICROCYTOSIS 1+; PLATELET ESTIMATE INCREASED
[2020-01-26 07:14] LABS: POIKILOCYTOSIS FEW
[2020-01-26] MEDS: K and/or MAG REPLACEMENT MC SCH ×2 (08:00→20:00)
[2020-01-26] MEDS: lactobacillus rhamnosus 10,000 MMU CELLS/CAPSULE PO SCH ×2 (10:04→20:46)
[2020-01-26] MEDS: levoTHYROXINE 100mcg tablet PO SCH (10:05)
[2020-01-26] MEDS: LORazepam 0.5 MG tablet PO SCH ×3 (10:05→20:46)
[2020-01-26] MEDS: CefTRIAXone/D5W-Rocephin 1gm 50 ML IV SCH (10:06)
[2020-01-26] MEDS: heparin, porcine 5000 units/ml vial SQ SCH (10:07)
[2020-01-26 11:00] VITALS: BP 103/51
[2020-01-26] MEDS ORDERED: pantoprazole 40 MG vial IV ONE (13:25)
[2020-01-26] MEDS: sodium ferric gluc complex inj 125 MG in normal saline 100ml IV soln 90 ML IV SCH (13:49)
[2020-01-26 15:00] VITALS: BP 120/60
--- NOTE | 2020-01-26 16:05 | NUR ---
Initial: Pt presented from [facility] with ALOC and nephrolithiasis, h/o schizophrenia per H&P. S/p stent placement. Pt pending discharge to [facility] this wednesday. Tolerating pureed diet with thin liquids per STRATEGIC PARTNER DEVELOPMENT MANAGER. Eating well, 75-100% PO Intake pureed diet. Recommend: 1. continue pureed diet, thin liquids per STRATEGIC PARTNER DEVELOPMENT MANAGER 2. wt per rx 3. monitor need for bowel care Addendum: 01/26/20 at [address] Amended: Links added.
[2020-01-26 18:00] VITALS: BP 124/68
--- NOTE | 2020-01-26 18:32 | NUR ---
Problems reprioritized. Patient report given, questions answered & plan of care reviewed with Vicente COLLINS.
[2020-01-26] MEDS: insulin Lispro (HumaLOG) vial - multi-dose SQ SCH (18:40)
[2020-01-26] MEDS: atorvastatin 20mg tablet PO SCH (20:46)
[2020-01-26] MEDS: pantoprazole 40 MG vial IV SCH (20:46)
[2020-01-26] MEDS: tamsulosin 0.4mg capsule PO SCH (20:46)
[2020-01-26] MEDS: aripiprazole 5mg tablet PO SCH (20:46)
[2020-01-26] MEDS: insulin glargine (Lantus) pen - multi-dose SQ SCH (20:59)
[2020-01-26 22:00] VITALS: BP 112/55
[2020-01-27] VITALS (10 sets, daily range): BP systolic 103–128; BP diastolic 48–73
[2020-01-27 06:03] LABS: ALANINE AMINOTRANSFERASE 32 U/L (12-78); ALBUMIN 1.6 G/DL (3.4-5.0); ALBUMIN/GLOBULIN RATIO 0.3 (1.1-1.5); ALKALINE PHOSPHATASE 76 IU/L (46-116); ANION GAP 7 (8-16); ASPARTATE AMINO TRANSFERASE 19 U/L (10-37); BILIRUBIN,TOTAL 0.3 MG/DL (0.1-1.0); BLOOD UREA NITROGEN 19 MG/DL (7-18); BUN/CREATININE RATIO 19.2 (6.6-38.0); CALCIUM 8.6 MG/DL (8.5-10.1); CHLORIDE 106 MMOL/L (99-107); CREATININE 0.99 MG/DL (0.40-0.90); FERRITIN 296 NG/ML (8-252); GLUCOSE 138 MG/DL (70-104); MAGNESIUM 1.9 MG/DL (1.5-2.4); POTASSIUM 4.2 MMOL/L (3.5-5.1); SODIUM 136 MMOL/L (135-145); TOTAL CARBON DIOXIDE 22.8 MMOL/L (24-32); TOTAL PROTEIN 6.5 G/DL (6.4-8.2); eGFR 55 ML/MIN
--- NOTE | 2020-01-27 06:13 | NUR ---
Problems reprioritized. Patient report given, questions answered & plan of care reviewed with Rayray COLLINS.
--- NOTE | 2020-01-27 06:19 | NUR ---
Patient in room PCU 3028. I have received report from DENNIS Zhang and had the opportunity to ask questions and assume patient care.
[2020-01-27 06:21] LABS: BASOPHILS % (AUTO) 0.5 % (0-1); EOSINOPHILS # (AUTO) 0.3 X10'3 (0-0.9); EOSINOPHILS % (AUTO) 3.9 % (0-6); HEMATOCRIT 28.2 % (35.0-45.0); HEMOGLOBIN 9.3 g/dl (12.0-16.0); LYMPHOCYTES # (AUTO) 2.1 X10'3 (1.1-4.8); LYMPHOCYTES % (AUTO) 25.5 % (21-51); MEAN CORPUSCULAR HEMOGLOBIN 25.6 PG (27.0-31.0); MEAN CORPUSCULAR HGB CONC 32.9 g/dL (33.0-36.5); MEAN CORPUSCULAR VOLUME 77.8 FL (78-98); MEAN PLATELET VOLUME 6.4 FL (7.4-10.4); MONOCYTES # (AUTO) 0.9 X10'3 (0-0.9); MONOCYTES % (AUTO) 10.4 % (2-12); NEUTROPHILS # (AUTO) 4.9 X10'3 (1.8-7.7); NEUTROPHILS % (AUTO) 59.7 % (42-75); PLATELET COUNT 444 X10'3 (140-440); RED BLOOD COUNT 3.62 X10'6 (4.20-5.60); RED CELL DISTRIBUTION WIDTH 18.3 % (11.5-14.5); WHITE BLOOD COUNT 8.3 X10'3 (4.5-11.0)
[2020-01-27] MEDS: K and/or MAG REPLACEMENT MC SCH ×2 (07:20→20:00)
[2020-01-27] MEDS: levoTHYROXINE 100mcg tablet PO SCH (08:11)
[2020-01-27] MEDS: LORazepam 0.5 MG tablet PO SCH ×3 (08:12→21:01)
[2020-01-27] MEDS: lactobacillus rhamnosus 10,000 MMU CELLS/CAPSULE PO SCH ×2 (08:12→20:00)
[2020-01-27] MEDS: pantoprazole 40 MG vial IV SCH (08:14)
[2020-01-27] MEDS: sodium ferric gluc complex inj 125 MG in normal saline 100ml IV soln 90 ML IV SCH (08:14)
[2020-01-27 08:25] LABS: % IRON SATURATION 15 % (11-46); IRON 21 UG/DL (49-151); TOTAL IRON BINDING CAPACITY 143 UG/DL (259-388)
[2020-01-27] MEDS: CefTRIAXone/D5W-Rocephin 1gm 50 ML IV SCH (09:44)
[2020-01-27] MEDS ORDERED: fentaNYL/PF 50MCG/1 ML 2ML syringe ONE (11:26)
[2020-01-27] MEDS ORDERED: MIDAZolam 5mg/5ml vial ONE (11:26)
[2020-01-27] MEDS ORDERED: LIDOcaine Viscous 15ml cup ONE (11:27)
[2020-01-27] MEDS ORDERED: diphenhydrAMINE 50 mg/ml inj ONE (11:39)
--- NOTE | 2020-01-27 18:48 | NUR ---
Problems reprioritized. Patient report given, questions answered & plan of care reviewed with DENNIS Zhang.
--- NOTE | 2020-01-27 18:57 | NUR ---
Patient in room PCU 3028. I have received report from TRIPP COLLINS and had the opportunity to ask questions and assume patient care.
--- NOTE | 2020-01-27 19:13 | NUR ---
Patient's meal was not documented and meal slip is not present. Therefore due to no documented meal, insulin coverage is not available, Patients blood sugar was 140 at 1700. will continue to monitor next blood sugar is at 2100.
[2020-01-27] MEDS: pantoprazole 40mg Tablet.DR PO SCH (20:00)
[2020-01-27] MEDS: aripiprazole 5mg tablet PO SCH (21:01)
[2020-01-27] MEDS: tamsulosin 0.4mg capsule PO SCH (21:02)
[2020-01-27] MEDS: atorvastatin 20mg tablet PO SCH (21:02)
[2020-01-27] MEDS: insulin glargine (Lantus) pen - multi-dose SQ SCH (21:07)
[2020-01-28 02:00] VITALS: BP 110/55
--- NOTE | 2020-01-28 06:03 | NUR ---
Student documentation: I have reviewed and agree with all interventions, assessments performed and documented by Jaskaran MCCORMICK. Student Medication Administration: For this medication-pass time frame, all medication were reviewed, dispensed, administered and documented per hospital policy by Jaskaran Harman RN.
[2020-01-28 06:19] LABS: ALANINE AMINOTRANSFERASE 30 U/L (12-78); ALBUMIN 1.6 G/DL (3.4-5.0); ALBUMIN/GLOBULIN RATIO 0.3 (1.1-1.5); ALKALINE PHOSPHATASE 70 IU/L (46-116); ANION GAP 7 (8-16); ASPARTATE AMINO TRANSFERASE 20 U/L (10-37); BILIRUBIN,TOTAL 0.3 MG/DL (0.1-1.0); BLOOD UREA NITROGEN 16 MG/DL (7-18); BUN/CREATININE RATIO 15.4 (6.6-38.0); CALCIUM 8.6 MG/DL (8.5-10.1); CHLORIDE 108 MMOL/L (99-107); CREATININE 1.04 MG/DL (0.40-0.90); GLUCOSE 93 MG/DL (70-104); PHOSPHORUS 3.2 MG/DL (2.3-4.5); POTASSIUM 4.2 MMOL/L (3.5-5.1); SODIUM 139 MMOL/L (135-145); TOTAL CARBON DIOXIDE 24.4 MMOL/L (24-32); TOTAL PROTEIN 6.5 G/DL (6.4-8.2); eGFR 52 ML/MIN
--- NOTE | 2020-01-28 06:21 | NUR ---
Patient in room PCU 3028. I have received report from Vicente COLLINS and had the opportunity to ask questions and assume patient care.
[2020-01-28 06:25] LABS: BASOPHILS # (AUTO) 0.1 X10'3 (0-0.2); BASOPHILS % (AUTO) 0.7 % (0-1); EOSINOPHILS # (AUTO) 0.2 X10'3 (0-0.9); EOSINOPHILS % (AUTO) 2.8 % (0-6); HEMATOCRIT 27.2 % (35.0-45.0); LYMPHOCYTES # (AUTO) 2.4 X10'3 (1.1-4.8); LYMPHOCYTES % (AUTO) 27.1 % (21-51); MEAN CORPUSCULAR HEMOGLOBIN 25.8 PG (27.0-31.0); MEAN PLATELET VOLUME 6.4 FL (7.4-10.4); MONOCYTES % (AUTO) 11.5 % (2-12); NEUTROPHILS # (AUTO) 5.1 X10'3 (1.8-7.7); NEUTROPHILS % (AUTO) 57.9 % (42-75); PLATELET COUNT 496 X10'3 (140-440); RED BLOOD COUNT 3.49 X10'6 (4.20-5.60); RED CELL DISTRIBUTION WIDTH 18.6 % (11.5-14.5); WHITE BLOOD COUNT 8.8 X10'3 (4.5-11.0)
--- NOTE | 2020-01-28 06:25 | NUR ---
Problems reprioritized. Patient report given, questions answered & plan of care reviewed with Di COLLINS.
[2020-01-28 07:00] VITALS: BP 109/61
[2020-01-28] MEDS: CefTRIAXone/D5W-Rocephin 1gm 50 ML IV SCH (07:37)
[2020-01-28] MEDS: LORazepam 0.5 MG tablet PO SCH ×3 (07:39→21:39)
[2020-01-28] MEDS: pantoprazole 40mg Tablet.DR PO SCH ×2 (07:44→21:39)
[2020-01-28] MEDS: lactobacillus rhamnosus 10,000 MMU CELLS/CAPSULE PO SCH ×2 (07:44→21:39)
[2020-01-28] MEDS: levoTHYROXINE 100mcg tablet PO SCH (07:44)
[2020-01-28 07:54] LABS: ANISOCYTOSIS 2+; HYPOCHROMASIA 1+; MICROCYTOSIS 1+; PLATELET ESTIMATE INCREASED; POLYCHROMASIA 1+; ROULEAUX 1+
[2020-01-28] MEDS: K and/or MAG REPLACEMENT MC SCH ×2 (08:00→20:00)
[2020-01-28] MEDS: sodium ferric gluc complex inj 125 MG in normal saline 100ml IV soln 90 ML IV SCH (09:42)
[2020-01-28 11:00] VITALS: BP 109/52
[2020-01-28] MEDS: insulin Lispro (HumaLOG) vial - multi-dose SQ SCH ×2 (13:39→19:59)
[2020-01-28 15:00] VITALS: BP 132/62
[2020-01-28 18:00] VITALS: BP 113/85
--- NOTE | 2020-01-28 18:11 | NUR ---
Problems reprioritized. Patient report given, questions answered & plan of care reviewed with Vannessa COLLINS.
--- NOTE | 2020-01-28 18:24 | NUR ---
Patient in room PCU 3028. I have received report from Di COLLINS and had the opportunity to ask questions and assume patient care.
[2020-01-28] MEDS: insulin glargine (Lantus) pen - multi-dose SQ SCH (21:38)
[2020-01-28] MEDS: aripiprazole 5mg tablet PO SCH (21:39)
[2020-01-28] MEDS: atorvastatin 20mg tablet PO SCH (21:39)
[2020-01-28] MEDS: tamsulosin 0.4mg capsule PO SCH (21:39)
[2020-01-28 22:00] VITALS: BP 107/51
[2020-01-29 02:00] VITALS: BP 111/46
--- NOTE | 2020-01-29 06:07 | NUR ---
Problems reprioritized. Patient report given, questions answered & plan of care reviewed with Di COLLINS.
--- NOTE | 2020-01-29 06:21 | NUR ---
Patient in room PCU 3028. I have received report from Vannessa COLLINS and had the opportunity to ask questions and assume patient care.
[2020-01-29 06:24] LABS: BASOPHILS # (AUTO) 0.1 X10'3 (0-0.2); BASOPHILS % (AUTO) 0.7 % (0-1); EOSINOPHILS # (AUTO) 0.3 X10'3 (0-0.9); EOSINOPHILS % (AUTO) 3.3 % (0-6); HEMATOCRIT 26.1 % (35.0-45.0); HEMOGLOBIN 8.5 g/dl (12.0-16.0); LYMPHOCYTES # (AUTO) 1.9 X10'3 (1.1-4.8); LYMPHOCYTES % (AUTO) 22.8 % (21-51); MEAN CORPUSCULAR HEMOGLOBIN 25.3 PG (27.0-31.0); MEAN CORPUSCULAR HGB CONC 32.5 g/dL (33.0-36.5); MEAN CORPUSCULAR VOLUME 77.7 FL (78-98); MEAN PLATELET VOLUME 6.7 FL (7.4-10.4); MONOCYTES # (AUTO) 0.8 X10'3 (0-0.9); MONOCYTES % (AUTO) 9.7 % (2-12); NEUTROPHILS # (AUTO) 5.4 X10'3 (1.8-7.7); NEUTROPHILS % (AUTO) 63.5 % (42-75); PLATELET COUNT 471 X10'3 (140-440); RED BLOOD COUNT 3.35 X10'6 (4.20-5.60); RED CELL DISTRIBUTION WIDTH 18.6 % (11.5-14.5); WHITE BLOOD COUNT 8.5 X10'3 (4.5-11.0)
[2020-01-29 06:36] LABS: ALANINE AMINOTRANSFERASE 22 U/L (12-78); ALBUMIN 1.6 G/DL (3.4-5.0); ALBUMIN/GLOBULIN RATIO 0.3 (1.1-1.5); ALKALINE PHOSPHATASE 72 IU/L (46-116); ANION GAP 8 (8-16); ASPARTATE AMINO TRANSFERASE 12 U/L (10-37); BILIRUBIN,TOTAL 0.2 MG/DL (0.1-1.0); BLOOD UREA NITROGEN 19 MG/DL (7-18); BUN/CREATININE RATIO 17.6 (6.6-38.0); CALCIUM 8.5 MG/DL (8.5-10.1); CHLORIDE 104 MMOL/L (99-107); CREATININE 1.08 MG/DL (0.40-0.90); GLUCOSE 119 MG/DL (70-104); MAGNESIUM 1.8 MG/DL (1.5-2.4); PHOSPHORUS 2.8 MG/DL (2.3-4.5); POTASSIUM 3.9 MMOL/L (3.5-5.1); SODIUM 136 MMOL/L (135-145); TOTAL CARBON DIOXIDE 24.4 MMOL/L (24-32); TOTAL PROTEIN 6.3 G/DL (6.4-8.2); eGFR 49 ML/MIN
[2020-01-29] MEDS: K and/or MAG REPLACEMENT MC SCH ×2 (08:00→20:00)
[2020-01-29] MEDS: lactobacillus rhamnosus 10,000 MMU CELLS/CAPSULE PO SCH ×2 (09:34→19:30)
[2020-01-29] MEDS: pantoprazole 40mg Tablet.DR PO SCH ×2 (09:34→19:30)
[2020-01-29] MEDS: levoTHYROXINE 100mcg tablet PO SCH (09:34)
[2020-01-29] MEDS: LORazepam 0.5 MG tablet PO SCH ×3 (09:34→21:31)
[2020-01-29] MEDS: CefTRIAXone/D5W-Rocephin 1gm 50 ML IV SCH (09:35)
[2020-01-29] MEDS: sodium ferric gluc complex inj 125 MG in normal saline 100ml IV soln 90 ML IV SCH (09:35)
[2020-01-29] MEDS ORDERED: CEFD300C3 PO (10:05)
[2020-01-29 10:12] LABS: ANISOCYTOSIS 2+
[2020-01-29 10:13] LABS: PLATELET ESTIMATE INCREASED
[2020-01-29 10:14] LABS: HYPOCHROMASIA 1+; MICROCYTOSIS 2+
--- NOTE | 2020-01-29 18:18 | NUR ---
Problems reprioritized. Patient report given, questions answered & plan of care reviewed with Abeba COLLINS.
[2020-01-29] MEDS: insulin Lispro (HumaLOG) vial - multi-dose SQ SCH (19:30)
--- NOTE | 2020-01-29 20:58 | NUR ---
Patient refused 1800 vital signs.
[2020-01-29] MEDS: aripiprazole 5mg tablet PO SCH (21:31)
[2020-01-29] MEDS: tamsulosin 0.4mg capsule PO SCH (21:31)
[2020-01-29] MEDS: atorvastatin 20mg tablet PO SCH (21:31)
[2020-01-29 22:00] VITALS: BP 116/64
[2020-01-29] MEDS: insulin glargine (Lantus) pen - multi-dose SQ SCH (22:01)
[2020-01-30 02:00] VITALS: BP 117/40
[2020-01-30 05:18] LABS: BASOPHILS # (AUTO) 0.1 X10'3 (0-0.2); BASOPHILS % (AUTO) 0.8 % (0-1); EOSINOPHILS # (AUTO) 0.2 X10'3 (0-0.9); EOSINOPHILS % (AUTO) 2.4 % (0-6); HEMATOCRIT 28.9 % (35.0-45.0); HEMOGLOBIN 9.5 g/dl (12.0-16.0); LYMPHOCYTES # (AUTO) 2.6 X10'3 (1.1-4.8); LYMPHOCYTES % (AUTO) 31.2 % (21-51); MEAN CORPUSCULAR HEMOGLOBIN 25.9 PG (27.0-31.0); MEAN CORPUSCULAR VOLUME 78.5 FL (78-98); MEAN PLATELET VOLUME 6.7 FL (7.4-10.4); MONOCYTES # (AUTO) 0.8 X10'3 (0-0.9); MONOCYTES % (AUTO) 9.2 % (2-12); NEUTROPHILS # (AUTO) 4.6 X10'3 (1.8-7.7); NEUTROPHILS % (AUTO) 56.4 % (42-75); PLATELET COUNT 501 X10'3 (140-440); RED BLOOD COUNT 3.68 X10'6 (4.20-5.60); RED CELL DISTRIBUTION WIDTH 18.7 % (11.5-14.5); WHITE BLOOD COUNT 8.2 X10'3 (4.5-11.0)
[2020-01-30 05:29] LABS: ALANINE AMINOTRANSFERASE 21 U/L (12-78); ALBUMIN 1.8 G/DL (3.4-5.0); ALBUMIN/GLOBULIN RATIO 0.4 (1.1-1.5); ALKALINE PHOSPHATASE 74 IU/L (46-116); ANION GAP 6 (8-16); ASPARTATE AMINO TRANSFERASE 16 U/L (10-37); BILIRUBIN,TOTAL 0.3 MG/DL (0.1-1.0); BLOOD UREA NITROGEN 18 MG/DL (7-18); BUN/CREATININE RATIO 16.7 (6.6-38.0); CALCIUM 8.6 MG/DL (8.5-10.1); CHLORIDE 98 MMOL/L (99-107); CREATININE 1.08 MG/DL (0.40-0.90); GLUCOSE 114 MG/DL (70-104); MAGNESIUM 1.8 MG/DL (1.5-2.4); PHOSPHORUS 3.4 MG/DL (2.3-4.5); POTASSIUM 3.9 MMOL/L (3.5-5.1); SODIUM 130 MMOL/L (135-145); TOTAL CARBON DIOXIDE 25.6 MMOL/L (24-32); TOTAL PROTEIN 6.8 G/DL (6.4-8.2); eGFR 49 ML/MIN
[2020-01-30 05:54] LABS: ANISOCYTOSIS 2+; MICROCYTOSIS 1+; PLATELET ESTIMATE INCREASED
--- NOTE | 2020-01-30 06:15 | NUR ---
Patient in room PCU 3028. I have received report from Abeba COLLINS and had the opportunity to ask questions and assume patient care.
[2020-01-30 07:00] VITALS: BP 120/55
[2020-01-30] MEDS: K and/or MAG REPLACEMENT MC SCH ×2 (08:00→20:00)
[2020-01-30] MEDS: lactobacillus rhamnosus 10,000 MMU CELLS/CAPSULE PO SCH ×2 (08:17→19:19)
[2020-01-30] MEDS: pantoprazole 40mg Tablet.DR PO SCH ×2 (08:17→19:20)
[2020-01-30] MEDS: levoTHYROXINE 100mcg tablet PO SCH (08:17)
[2020-01-30] MEDS: sodium ferric gluc complex inj 125 MG in normal saline 100ml IV soln 90 ML IV SCH (08:18)
[2020-01-30] MEDS: LORazepam 0.5 MG tablet PO SCH ×3 (08:20→20:04)
[2020-01-30] MEDS: insulin Lispro (HumaLOG) vial - multi-dose SQ SCH ×2 (14:22→19:39)
[2020-01-30 15:00] VITALS: BP 102/56
[2020-01-30 18:00] VITALS: BP 102/47
--- NOTE | 2020-01-30 18:25 | NUR ---
Patient in room PCU 3028. I have received report from Di COLLINS and had the opportunity to ask questions and assume patient care.
--- NOTE | 2020-01-30 18:28 | NUR ---
Problems reprioritized. Patient report given, questions answered & plan of care reviewed with Rehan COLLINS.
[2020-01-30] MEDS: aripiprazole 5mg tablet PO SCH (20:04)
[2020-01-30] MEDS: tamsulosin 0.4mg capsule PO SCH (20:04)
[2020-01-30] MEDS: atorvastatin 20mg tablet PO SCH (20:04)
[2020-01-30] MEDS: insulin glargine (Lantus) pen - multi-dose SQ SCH (21:30)
--- NOTE | 2020-01-30 22:00 | NUR ---
I have received report from Rehan COLLINS and had the opportunity to ask questions and assume patient care. pt transfered from tele. no apparent distress
[2020-01-30 22:45] VITALS: BP 105/55
--- NOTE | 2020-01-31 06:08 | NUR ---
Problems reprioritized. Patient report given, questions answered & plan of care reviewed with Camilla COLLINS.
--- NOTE | 2020-01-31 06:49 | NUR ---
Patient in room CHANO 358. I have received report from DENNIS Ayala and had the opportunity to ask questions and assume patient care.
[2020-01-31 08:00] VITALS: BP 108/52
[2020-01-31] MEDS: K and/or MAG REPLACEMENT MC SCH (08:00)
[2020-01-31] MEDS: sodium ferric gluc complex inj 125 MG in normal saline 100ml IV soln 90 ML IV SCH (08:42)
[2020-01-31] MEDS: levoTHYROXINE 100mcg tablet PO SCH (08:44)
[2020-01-31] MEDS: pantoprazole 40mg Tablet.DR PO SCH (08:44)
[2020-01-31] MEDS: lactobacillus rhamnosus 10,000 MMU CELLS/CAPSULE PO SCH (08:44)
[2020-01-31] MEDS: LORazepam 0.5 MG tablet PO SCH ×2 (08:44→13:42)
[2020-01-31] MEDS: insulin Lispro (HumaLOG) vial - multi-dose SQ SCH ×2 (09:19→13:47)
--- NOTE | 2020-01-31 12:30 | NUR ---
DM consult: Pt with A1c 8.9%, documented as A/O x 1 and confused. DM education not appropriate at this time. Pt with low [place] of 12. Per physical assessment pt with BLE 1+ trace edema and partial thick prei-rectal IAD per [facility] notes. Patient's PO intake fluctuates 75-100% with 0-25% and meal refusals, back up to 100% at two most recent meals. LBM 01/29. Pt pending discharge with PU time 1445 per CM notes. No nutrition intervention implemented at this time. Will continue to follow. Recommend: 1. continue pureed CHO controlled diet with thin liquids per DOPE WORKER 2. scaled wt per rx 3. bowel care per rx Addendum: 01/31/20 at [address] Amended: Links added.
--- NOTE | 2020-01-31 14:55 | NUR ---
Report given to ángel echeverria at [facility].
--- NOTE | 2020-01-31 16:01 | NUR ---
Pt D/C' to [facility] in stable conditions. Report given to receiving nurse. IV removed prior discharge. Pt left the hospital via [facility] accompanied by [employer] personal.
== END 2020-01-31 15:17 | DRG 853 ==
LOC: ER 12:32 → ED HOLD 16:01 → ICU 2S 19:39 → PCU 3S 01-24 17:29 → SUR 3N 01-30 22:00
PROVIDERS: ADMIT Internal Medicine Critical Care Medicine; ATTEND Internal Medicine Critical Care Medicine
PROC: BT141ZZ Fluoroscopy of Kidneys, Ureters and Bladder using Low Osmolar Contrast (ICD-10-PCS; 2020-01-21)
PROC: BT1B1ZZ Fluoroscopy of Bladder and Urethra using Low Osmolar Contrast (ICD-10-PCS; 2020-01-21)
PROC: 0T788DZ Dilation of Bilateral Ureters with Intraluminal Device, Via Natural or Artificial Opening Endoscopic (ICD-10-PCS; principal; 2020-01-21 17:45)
PROC: 0DB58ZX Excision of Esophagus, Via Natural or Artificial Opening Endoscopic, Diagnostic (ICD-10-PCS; 2020-01-27)
PROC: 0DB48ZX Excision of Esophagogastric Junction, Via Natural or Artificial Opening Endoscopic, Diagnostic (ICD-10-PCS; 2020-01-27)
DX: A41.9 Sepsis, unspecified organism (principal); K20.91 Esophagitis, unspecified with bleeding; E87.1 Hypo-osmolality and hyponatremia; N13.6 Pyonephrosis; N20.2 Calculus of kidney with calculus of ureter; N17.9 Acute kidney failure, unspecified; E11.65 Type 2 diabetes mellitus with hyperglycemia; B96.4 Proteus (mirabilis) (morganii) as the cause of diseases classified elsewhere; K44.9 Diaphragmatic hernia without obstruction or gangrene; D50.0 Iron deficiency anemia secondary to blood loss (chronic); F20.9 Schizophrenia, unspecified; I10 Essential (primary) hypertension; J44.9 Chronic obstructive pulmonary disease, unspecified; N81.10 Cystocele, unspecified; Z20.828 Contact with and (suspected) exposure to other viral communicable diseases; K22.8 Other specified diseases of esophagus; M19.90 Unspecified osteoarthritis, unspecified site; I95.9 Hypotension, unspecified; Z79.899 Other long term (current) drug therapy; Z79.82 Long term (current) use of aspirin
CPT/HCPCS: 36415; 36600; 43239; 71045; 74176; 74450; 76000; 80048; 80053; 81001; 82272; 82570; 82728; 82803; 82948; 83036; 83540; 83550; 83605; 83690; 83735; 83935; 84100; 84145; 84156; 84300; 84443; 85007; 85008; 85018; 85025; 87040; 87070; 87077; 87081; 87088; 87186; 87207; 87635; 92508; 92616; 93005; 94002; 94003; 94760; 97112; 97161; 97530; 97535; 99152; A4338; A4357; A4618; A4620; C1758; C1769; C2617; C9113; C9803; G0378; J0696; J1200; J1644; J1815; J1885; J2150; J2250; J2370; J2543; J2597; J2916; J3010; J3370; J7030; J7040; J7050; Q9967

== ENCOUNTER 2020-05-23 10:37 | Day surgery (SDC) | payer MEDICARE, MEDICAID ==
[~2020-05-23] VITALS: Ht 165.1 cm; Wt 63.6 kg
[~2020-05-23 10:37] MED LIST changes: +ASCO500C17 PO; -ASPI-1265 PO; +BISA10SU11 RC; -FAMO-129 PO; -FENO48TA15 PO; +FERR-39 PO; +FURO-150 PO; +HYDR-4353 PO; +INSU100V12 SQ; +LACT10SO57 PO; -LEVO100T PO; +LEVO50TA8 PO; -LISI-600 PO; +LORA-269 PO; -LORA0.5T PO; -MAGN400T28 PO; +METH1TAB31 PO; -METO50TA7 PO; -OXCA600T9 PO; -OXYB5TAB16 PO; +POTA8CAP20 PO; +RISP0.5T65 PO; -RISP1TAB13 PO; -TRIH5TAB2 PO; +TRIH5TAB3 PO; -VIT500LI PO
[2020-05-23 10:50] VITALS: BP 135/84
[2020-05-23] MEDS ORDERED: PANT-47 PO (11:17)
[2020-05-23] MEDS ORDERED: DIPH25CA83 PO (11:17)
[2020-05-23] MEDS ORDERED: DOCU100C40 PO (11:17)
[2020-05-23] MEDS ORDERED: FLO0.4C PO (11:17)
[2020-05-23] MEDS ORDERED: LACT1CAP57 PO (11:17)
[2020-05-23] MEDS ORDERED: fentaNYL/PF 50MCG/1 ML 2ML syringe ONE ×2 (11:30→11:31)
[2020-05-23] MEDS ORDERED: LIDOcaine Viscous 15ml cup ONE (11:30)
[2020-05-23] MEDS ORDERED: MIDAZolam 1 MG/ML 5ML VIAL ONE ×2 (11:30→11:31)
[2020-05-23 11:50] VITALS: BP 129/79
[2020-05-23 12:00] VITALS: BP 132/81
[2020-05-23 12:10] VITALS: BP 128/81
== END 2020-05-23 12:25 ==
LOC: GI LAB 10:37
PROVIDERS: ATTEND Internal Medicine Gastroenterology
DX: K92.0 Hematemesis (principal); K20.80 Other esophagitis without bleeding; K22.8 Other specified diseases of esophagus; K29.60 Other gastritis without bleeding; K31.89 Other diseases of stomach and duodenum; F17.210 Nicotine dependence, cigarettes, uncomplicated; F20.9 Schizophrenia, unspecified; F31.9 Bipolar disorder, unspecified; Z72.89 Other problems related to lifestyle; E11.9 Type 2 diabetes mellitus without complications; Z79.4 Long term (current) use of insulin; Z79.899 Other long term (current) drug therapy
CPT/HCPCS: 43239; 82948; G0500; J2250; J3010; J7040; 99152; A4620

== ENCOUNTER 2021-01-27 10:59 | Inpatient (IN) | payer MEDICARE, MEDICAID ==
[~2021-01-27] VITALS: Ht 170.2 cm; Wt 77.0 kg
[~2021-01-27 10:59] MED LIST changes: +DIPH25CA83 PO; +DOCU100C40 PO; +FLO0.4C PO; +LACT1CAP57 PO; -OLAN10TA19 PO; +OLAN10TA40 PO; +PANT-47 PO
[2021-01-27 12:26] LABS: BASOPHILS # (AUTO) 0.1 X10'3 (0-0.2); BASOPHILS % (AUTO) 0.7 % (0-1); EOSINOPHILS # (AUTO) 0.1 X10'3 (0-0.9); EOSINOPHILS % (AUTO) 0.8 % (0-6); HEMOGLOBIN 10.4 g/dl (12.0-16.0); LYMPHOCYTES % (AUTO) 12.5 % (21-51); MEAN CORPUSCULAR HGB CONC 32.4 g/dL (33.0-36.5); MEAN PLATELET VOLUME 6.1 FL (7.4-10.4); MONOCYTES # (AUTO) 1.1 X10'3 (0-0.9); MONOCYTES % (AUTO) 7.2 % (2-12); NEUTROPHILS # (AUTO) 12.3 X10'3 (1.8-7.7); NEUTROPHILS % (AUTO) 78.8 % (42-75); PLATELET COUNT 648 X10'3 (140-440); RED BLOOD COUNT 4.16 X10'6 (4.20-5.60); RED CELL DISTRIBUTION WIDTH 18.8 % (11.5-14.5); WHITE BLOOD COUNT 15.7 X10'3 (4.5-11.0)
[2021-01-27 12:38] LABS: ALANINE AMINOTRANSFERASE 18 U/L (12-78); ALBUMIN 2.2 G/DL (3.4-5.0); ALBUMIN/GLOBULIN RATIO 0.3 (1.1-1.5); ALKALINE PHOSPHATASE 107 IU/L (46-116); ANION GAP 9 (8-16); ASPARTATE AMINO TRANSFERASE 20 U/L (10-37); BILIRUBIN,TOTAL 0.2 MG/DL (0.1-1.0); BLOOD UREA NITROGEN 38 MG/DL (7-18); BUN/CREATININE RATIO 18.5 (6.6-38.0); CALCIUM 9.9 MG/DL (8.5-10.1); CHLORIDE 94 MMOL/L (99-107); CREATININE 2.05 MG/DL (0.40-0.90); GLUCOSE 122 MG/DL (70-104); SODIUM 135 MMOL/L (135-145); TOTAL CARBON DIOXIDE 32.1 MMOL/L (24-32); TOTAL PROTEIN 8.7 G/DL (6.4-8.2); eGFR 23 ML/MIN
[2021-01-27 13:59] LABS: ANISOCYTOSIS 2+; PLATELET ESTIMATE INCREASED; TOTAL CELLS COUNTED 100
[2021-01-27 14:00] LABS: MICROCYTOSIS 1+
[2021-01-27 14:16] LABS: CLARITY,URINE CLOUDY (Clear); COLOR,URINE YELLOW (Yellow); PH,URINE 7.5 (4.8-8.0); UA COLLECTION TYPE CLN CATCH MIDSTREAM
[2021-01-27 14:17] LABS: GLUCOSE, URINE NEGATIVE (Neg); KETONES,URINE NEGATIVE (Neg); LEUKOCYTE ESTERASE ,URINE LARGE (Neg); NITRITES, URINE NEGATIVE (Neg); OCCULT BLOOD,URINE MODERATE (Neg); PROTEIN,URINE 100 mg/dl (Neg); UROBILINOGEN,URINE 0.2 E.U/dL (0.2-1.0)
[2021-01-27 14:25] LABS: BACTERIA,URINE 2+ /HPF (Neg); RBC,URINE 20-50 /HPF (0-2); SQUAMOUS EPITHELIAL CELL,UR FEW /LPF (FEW); WBC,URINE TNTC /HPF (0-4)
[2021-01-27 14:26] LABS: MUCUS STRANDS NONE SEEN /LPF (Neg)
[2021-01-27] MEDS ORDERED: ondansetron/PF 4mg/2ml inj IV ONE (14:45)
[2021-01-27] MEDS ORDERED: FOSFOMYCIN TROMETHAMINE 3 GM PACKET PO ONE (14:45)
[2021-01-27] MEDS ORDERED: normal saline 1000ml 1,000 ML IV ONE (14:50)
[2021-01-27] MEDS ORDERED: CefTRIAXone/D5W-Rocephin 1gm 50 ML IV ONE (14:55)
[2021-01-27] MEDS ORDERED: ONDA4TAB12 PO (14:57)
[2021-01-27] MEDS ORDERED: CEFD300C3 PO (14:57)
[2021-01-27] MEDS ORDERED: magnesium hydroxide 30ml (MOM) UD suspension PO PRN (15:15)
[2021-01-27] MEDS ORDERED: mag hydrox/Alum hydrox/simeth 30ml oral suspension PO PRN (15:15)
[2021-01-27] MEDS: normal saline 1000ml 1,000 ML IV SCH (15:15)
[2021-01-27] MEDS ORDERED: acetaminophen 325mg tablet PO PRN (15:15)
[2021-01-27] MEDS ORDERED: AMIO200T27 PO (15:36)
[2021-01-27] MEDS ORDERED: ZINC220T3 PO (15:46)
[2021-01-27] MEDS ORDERED: DOCU250C96 PO (15:49)
[2021-01-27] MEDS ORDERED: bisacodyl 10mg suppository rectal RC PRN (16:30)
[2021-01-27] MEDS ORDERED: ondansetron 4mg rapidly disintigrating tab PO PRN (16:30)
[2021-01-27] MEDS ORDERED: lactulose 20gm/30ml cup PO PRN (16:30)
--- NOTE | 2021-01-27 19:13 | NUR ---
ASSUMED CARE OF PT. PT LYING COMFORTABLY ON GURNEY. REQUESTING ICE WATER.
[2021-01-27] MEDS ORDERED: LORazepam 1 MG tablet PO SCH (20:00)
[2021-01-27] MEDS: aripiprazole 5mg tablet PO SCH (21:36)
[2021-01-27] MEDS: quetiapine 100mg tablet PO SCH (21:38)
[2021-01-27] MEDS: ferrous sulfate 325mg tablet PO SCH (21:39)
[2021-01-27] MEDS: olanzapine 10mg tablet PO SCH (21:39)
[2021-01-27] MEDS: docusate sod 100mg capsule PO SCH (21:40)
[2021-01-27] MEDS: LORazepam 0.5 MG tablet PO SCH (21:41)
[2021-01-27] MEDS: atorvastatin 20mg tablet PO SCH (21:41)
[2021-01-27] MEDS: potassium chloride 8mEq ER tablet PO SCH (21:42)
[2021-01-27] MEDS: docusate sod 250mg capsule PO SCH (21:43)
[2021-01-27] MEDS: HYDROcodone/acetaminophen 10/325mg tab PO SCH (21:44)
[2021-01-27] MEDS: tamsulosin 0.4mg capsule PO SCH (21:45)
[2021-01-27] MEDS: lactulose 20gm/30ml cup PO SCH (21:46)
[2021-01-27] MEDS: ascorbic acid 500mg tablet PO SCH (21:46)
--- NOTE | 2021-01-27 22:05 | NUR ---
PT COUGHED AND HAD AN EPISODE OF LARGE LIQUID EMESIS WHILE I WAS AT BEDSIDE, S/P MED PASS. PT WAS SITTING AT A 90 DEGREE ANGLE ENTIRE TIME. EMESIS IN EMESIS BAG, PT CLEANED UP, GOWN CHANGED, LINEN CHANGED. PT REPORTS NOT FEELING NAUSEA AT THIS TIME. PT WILL REMAIN SITTING UP FOR FURTHER MONITORING.
[2021-01-27] MEDS: ondansetron/PF 4mg/2ml inj IV PRN (22:35)
[2021-01-27] MEDS: perphenazine 8mg tablets PO SCH (22:37)
[2021-01-27] MEDS: risperiDONE 0.5mg tablet PO SCH (22:39)
[2021-01-27] MEDS: trihexyphenidyl HCL 5 MG tablet PO SCH (23:58)
[2021-01-28] MEDS: normal saline 1000ml 1,000 ML IV SCH ×3 (01:31→17:18)
[2021-01-28 01:34] LABS: ALBUMIN 1.9 G/DL (3.4-5.0); ANION GAP 3 (8-16); BLOOD UREA NITROGEN 35 MG/DL (7-18); BUN/CREATININE RATIO 17.3 (6.6-38.0); CALCIUM 9.2 MG/DL (8.5-10.1); CHLORIDE 92 MMOL/L (99-107); CREATININE 2.02 MG/DL (0.40-0.90); GLUCOSE 72 MG/DL (70-104); POTASSIUM 3.6 MMOL/L (3.5-5.1); SODIUM 126 MMOL/L (135-145); TOTAL CARBON DIOXIDE 31.3 MMOL/L (24-32); eGFR 24 ML/MIN
[2021-01-28] MEDS: lactulose 20gm/30ml cup PO SCH ×4 (02:23→20:00)
[2021-01-28 03:20] LABS: BASOPHILS # (AUTO) 0.1 X10'3 (0-0.2); BASOPHILS % (AUTO) 0.4 % (0-1); EOSINOPHILS # (AUTO) 0.2 X10'3 (0-0.9); EOSINOPHILS % (AUTO) 1.4 % (0-6); HEMATOCRIT 28.6 % (35.0-45.0); HEMOGLOBIN 9.3 g/dl (12.0-16.0); LYMPHOCYTES # (AUTO) 2.4 X10'3 (1.1-4.8); LYMPHOCYTES % (AUTO) 14.9 % (21-51); MEAN CORPUSCULAR HEMOGLOBIN 25.1 PG (27.0-31.0); MEAN CORPUSCULAR HGB CONC 32.5 g/dL (33.0-36.5); MEAN PLATELET VOLUME 6.1 FL (7.4-10.4); MONOCYTES # (AUTO) 1.4 X10'3 (0-0.9); MONOCYTES % (AUTO) 8.4 % (2-12); NEUTROPHILS # (AUTO) 12.2 X10'3 (1.8-7.7); NEUTROPHILS % (AUTO) 74.9 % (42-75); PLATELET COUNT 596 X10'3 (140-440); RED BLOOD COUNT 3.71 X10'6 (4.20-5.60); RED CELL DISTRIBUTION WIDTH 18.9 % (11.5-14.5); WHITE BLOOD COUNT 16.3 X10'3 (4.5-11.0)
--- NOTE | 2021-01-28 06:39 | NUR ---
pt awake. mumbling uncomprensible words. no acute distress noted at this time.
[2021-01-28] MEDS: insulin glargine (Lantus) pen - multi-dose SQ SCH (07:35)
[2021-01-28] MEDS: CefTRIAXone 2gm/D5W 50ml BAG 50 ML IV SCH (07:39)
[2021-01-28] MEDS: ondansetron/PF 4mg/2ml inj IV PRN (07:39)
[2021-01-28] MEDS: ascorbic acid 500mg tablet PO SCH ×2 (08:00→20:00)
[2021-01-28] MEDS: ferrous sulfate 325mg tablet PO SCH ×2 (08:00→20:00)
[2021-01-28] MEDS: potassium chloride 8mEq ER tablet PO SCH ×2 (08:00→20:00)
[2021-01-28] MEDS: multivitamins, therapeutics tablet PO SCH (08:00)
[2021-01-28] MEDS: enoxaparin 40mg/0.4ml syringe SUBCUT SCH (09:10)
[2021-01-28] MEDS: docusate sod 100mg capsule PO SCH (09:11)
[2021-01-28] MEDS: pantoprazole 40mg Tablet.DR PO SCH (09:11)
[2021-01-28] MEDS: docusate sod 250mg capsule PO SCH ×2 (09:11→20:00)
[2021-01-28] MEDS: amiodarone 200mg tablet PO SCH (09:11)
[2021-01-28] MEDS: LORazepam 0.5 MG tablet PO SCH ×2 (09:11→20:00)
[2021-01-28] MEDS: furosemide 20MG tablet PO SCH (09:11)
[2021-01-28] MEDS: levoTHYROXINE 100mcg tablet PO SCH (09:11)
[2021-01-28] MEDS: polyethylene glycol 3350 17gm powd pack PO SCH (09:12)
[2021-01-28] MEDS: risperiDONE 0.5mg tablet PO SCH ×2 (09:12→20:00)
[2021-01-28] MEDS: quetiapine 100mg tablet PO SCH ×3 (09:12→21:06)
[2021-01-28] MEDS: zinc sulfate 220mg capsule PO SCH (09:13)
[2021-01-28] MEDS: perphenazine 8mg tablets PO SCH ×3 (09:13→21:00)
[2021-01-28 11:30] VITALS: BP 120/53
[2021-01-28] MEDS ORDERED: dextrose ORAL solution 15 GM/59 ML bottle PO PRN ×2 (12:45)
[2021-01-28] MEDS ORDERED: MESSAGE TO PHARMACY PO ONE (12:45)
[2021-01-28] MEDS ORDERED: glucagon, human recombinant 1mg kit SUBCUT PRN (12:45)
[2021-01-28] MEDS ORDERED: dextrose 50%-water 50ml dispensing syringe IV PRN ×2 (12:45)
[2021-01-28] MEDS ORDERED: insulin Lispro (HumaLOG) vial - multi-dose SQ SCH (12:45)
[2021-01-28 15:00] VITALS: BP 109/53
--- NOTE | 2021-01-28 16:08 | NUR ---
Noted pt with T2DM, well controlled with A1c 7.0%, down from 8.5% 10/27/20 per EMR. DM education not warranted at this time. Will continue to follow. Addendum: 01/28/21 at [address] Amended: Links added.
--- NOTE | 2021-01-28 18:35 | NUR ---
Problems reprioritized. Patient report given, questions answered & plan of care reviewed with DENNIS Finnegan.
[2021-01-28] MEDS: lactobacillus rhamnosus 10,000 MMU CELLS/CAPSULE PO SCH (20:00)
[2021-01-28] MEDS: trihexyphenidyl HCL 5 MG tablet PO SCH (21:00)
[2021-01-28] MEDS: HYDROcodone/acetaminophen 10/325mg tab PO SCH ×3 (21:00→22:50)
[2021-01-28] MEDS: olanzapine 10mg tablet PO SCH (21:00)
[2021-01-28] MEDS: atorvastatin 20mg tablet PO SCH (21:06)
[2021-01-28] MEDS: tamsulosin 0.4mg capsule PO SCH (21:06)
[2021-01-28] MEDS: aripiprazole 5mg tablet PO SCH (21:06)
[2021-01-29] MEDS: lactulose 20gm/30ml cup PO SCH ×4 (01:44→20:16)
[2021-01-29] MEDS: normal saline 1000ml 1,000 ML IV SCH ×2 (03:47→17:15)
[2021-01-29 06:19] LABS: ALBUMIN 1.7 G/DL (3.4-5.0); ANION GAP 8 (8-16); BLOOD UREA NITROGEN 29 MG/DL (7-18); BUN/CREATININE RATIO 15.3 (6.6-38.0); CALCIUM 8.2 MG/DL (8.5-10.1); CHLORIDE 99 MMOL/L (99-107); GLUCOSE 129 MG/DL (70-104); POTASSIUM 3.7 MMOL/L (3.5-5.1); SODIUM 133 MMOL/L (135-145); eGFR 26 ML/MIN
[2021-01-29 06:22] LABS: BASOPHILS # (AUTO) 0.1 X10'3 (0-0.2); BASOPHILS % (AUTO) 0.9 % (0-1); EOSINOPHILS # (AUTO) 0.5 X10'3 (0-0.9); EOSINOPHILS % (AUTO) 6.5 % (0-6); HEMOGLOBIN 8.2 g/dl (12.0-16.0); LYMPHOCYTES # (AUTO) 1.6 X10'3 (1.1-4.8); LYMPHOCYTES % (AUTO) 20.6 % (21-51); MEAN CORPUSCULAR HEMOGLOBIN 25.4 PG (27.0-31.0); MEAN CORPUSCULAR HGB CONC 32.8 g/dL (33.0-36.5); MEAN CORPUSCULAR VOLUME 77.3 FL (78-98); MEAN PLATELET VOLUME 6.2 FL (7.4-10.4); MONOCYTES # (AUTO) 0.9 X10'3 (0-0.9); MONOCYTES % (AUTO) 11.3 % (2-12); NEUTROPHILS # (AUTO) 4.8 X10'3 (1.8-7.7); NEUTROPHILS % (AUTO) 60.7 % (42-75); PLATELET COUNT 555 X10'3 (140-440); RED BLOOD COUNT 3.24 X10'6 (4.20-5.60); RED CELL DISTRIBUTION WIDTH 18.1 % (11.5-14.5); WHITE BLOOD COUNT 7.8 X10'3 (4.5-11.0)
[2021-01-29 07:06] VITALS: BP 116/55
[2021-01-29] MEDS: docusate sod 250mg capsule PO SCH ×2 (08:00→20:16)
[2021-01-29] MEDS: perphenazine 8mg tablets PO SCH ×3 (08:00→20:18)
[2021-01-29] MEDS: zinc sulfate 220mg capsule PO SCH (08:00)
[2021-01-29] MEDS: insulin glargine (Lantus) pen - multi-dose SQ SCH (08:00)
--- NOTE | 2021-01-29 09:30 | NUR ---
Wound care received consult for "Skin tear to R groin, delicate buttock skin". Upon arriving to bedside, patient refused skin assessment. When asked if Wound Care team could look at her wound, she stated, "I would rather you not. And I don't have any." After trying to educate her on potential for infection if she has a wound, patient still refused. Spoke with primary RN, who reports patient is noncompliant and recently pulled out her IV. RN asked to attempt to do a skin check today if patient allows and inform wound care of any issues.
[2021-01-29] MEDS: polyethylene glycol 3350 17gm powd pack PO SCH (09:41)
[2021-01-29] MEDS: levoTHYROXINE 100mcg tablet PO SCH (09:41)
[2021-01-29] MEDS: ferrous sulfate 325mg tablet PO SCH ×2 (09:42→20:16)
[2021-01-29] MEDS: potassium chloride 8mEq ER tablet PO SCH ×2 (09:42→20:19)
[2021-01-29] MEDS: quetiapine 100mg tablet PO SCH ×3 (09:42→20:19)
[2021-01-29] MEDS: pantoprazole 40mg Tablet.DR PO SCH (09:42)
[2021-01-29] MEDS: lactobacillus rhamnosus 10,000 MMU CELLS/CAPSULE PO SCH ×2 (09:42→20:18)
[2021-01-29] MEDS: ascorbic acid 500mg tablet PO SCH ×2 (09:42→20:16)
[2021-01-29] MEDS: multivitamins, therapeutics tablet PO SCH (09:43)
[2021-01-29] MEDS: amiodarone 200mg tablet PO SCH (09:43)
[2021-01-29] MEDS: furosemide 20MG tablet PO SCH (09:43)
[2021-01-29] MEDS: LORazepam 0.5 MG tablet PO SCH ×2 (09:43→20:18)
--- NOTE | 2021-01-29 09:47 | NUR ---
Nutrition consult: Patient's A1c has already been addressed, see below. Pt on a mechanical soft CHO controlled diet and eating well with 100% PO intake. No nutrition intervention warranted at this time. Will continue to follow. 01/28: Noted pt with T2DM, well controlled with A1c 7.0%, down from 8.5% 10/27/20 per EMR. DM education not warranted at this time. Will continue to follow. Addendum: 01/29/21 at [address] Amended: Links added.
[2021-01-29 10:28] LABS: TOTAL CELLS COUNTED 100
[2021-01-29 10:29] LABS: ANISOCYTOSIS 2+; MICROCYTOSIS 1+; PLATELET ESTIMATE INCREASED
[2021-01-29] MEDS: enoxaparin 40mg/0.4ml syringe SUBCUT SCH (10:29)
[2021-01-29 11:11] VITALS: BP 105/42
[2021-01-29] MEDS: CefTRIAXone 2gm/D5W 50ml BAG 50 ML IV SCH (11:50)
[2021-01-29] MEDS: risperiDONE 0.5mg tablet PO SCH ×2 (11:51→20:16)
[2021-01-29 15:15] VITALS: BP 128/56
[2021-01-29 18:00] VITALS: BP 122/58
[2021-01-29] MEDS: trihexyphenidyl HCL 5 MG tablet PO SCH (20:16)
[2021-01-29] MEDS: atorvastatin 20mg tablet PO SCH (20:17)
[2021-01-29] MEDS: tamsulosin 0.4mg capsule PO SCH (20:17)
[2021-01-29] MEDS: olanzapine 10mg tablet PO SCH (20:18)
[2021-01-29] MEDS: HYDROcodone/acetaminophen 10/325mg tab PO SCH (20:19)
[2021-01-29] MEDS: aripiprazole 5mg tablet PO SCH (20:19)
[2021-01-29 22:00] VITALS: BP 114/60
[2021-01-30] MEDS: lactulose 20gm/30ml cup PO SCH ×4 (01:19→21:26)
[2021-01-30 02:00] VITALS: BP 109/57
[2021-01-30] MEDS: normal saline 1000ml 1,000 ML IV SCH ×3 (03:06→23:15)
[2021-01-30] MEDS: enoxaparin 30mg/0.3ml syringe SUBCUT SCH (08:50)
[2021-01-30] MEDS: risperiDONE 0.5mg tablet PO SCH ×2 (08:51→21:38)
[2021-01-30] MEDS: multivitamins, therapeutics tablet PO SCH (08:52)
[2021-01-30] MEDS: amiodarone 200mg tablet PO SCH (08:52)
[2021-01-30] MEDS: polyethylene glycol 3350 17gm powd pack PO SCH (08:52)
[2021-01-30] MEDS: lactobacillus rhamnosus 10,000 MMU CELLS/CAPSULE PO SCH ×2 (08:52→21:23)
[2021-01-30] MEDS: docusate sod 250mg capsule PO SCH ×2 (08:52→21:24)
[2021-01-30] MEDS: LORazepam 0.5 MG tablet PO SCH ×2 (08:52→21:25)
[2021-01-30] MEDS: quetiapine 100mg tablet PO SCH ×3 (08:53→21:24)
[2021-01-30] MEDS: ascorbic acid 500mg tablet PO SCH ×2 (08:53→21:25)
[2021-01-30] MEDS: potassium chloride 8mEq ER tablet PO SCH ×2 (08:53→21:23)
[2021-01-30] MEDS: ferrous sulfate 325mg tablet PO SCH ×2 (08:53→21:23)
[2021-01-30] MEDS: levoTHYROXINE 100mcg tablet PO SCH (08:53)
[2021-01-30] MEDS: pantoprazole 40mg Tablet.DR PO SCH (08:53)
[2021-01-30] MEDS: perphenazine 8mg tablets PO SCH ×3 (08:53→21:23)
[2021-01-30] MEDS: zinc sulfate 220mg capsule PO SCH (08:53)
[2021-01-30] MEDS: furosemide 20MG tablet PO SCH (08:53)
[2021-01-30] MEDS: piperacillin/tazo 3.375gm/50ml 50 ML IV SCH ×2 (08:54→17:14)
[2021-01-30] MEDS: insulin glargine (Lantus) pen - multi-dose SQ SCH (09:03)
[2021-01-30 11:00] VITALS: BP 121/65
--- NOTE | 2021-01-30 18:45 | NUR ---
Problems reprioritized. Patient report given, questions answered & plan of care reviewed with DENNIS LUBIN.
[2021-01-30] MEDS: ondansetron/PF 4mg/2ml inj IV PRN (20:08)
[2021-01-30] MEDS ORDERED: furosemide 20MG tablet PO ONE (20:35)
[2021-01-30] MEDS: trihexyphenidyl HCL 5 MG tablet PO SCH (21:22)
[2021-01-30] MEDS: atorvastatin 20mg tablet PO SCH (21:22)
[2021-01-30] MEDS: aripiprazole 5mg tablet PO SCH (21:23)
[2021-01-30] MEDS: HYDROcodone/acetaminophen 10/325mg tab PO SCH (21:24)
[2021-01-30] MEDS: tamsulosin 0.4mg capsule PO SCH (21:25)
[2021-01-30] MEDS: olanzapine 10mg tablet PO SCH (21:36)
[2021-01-31] MEDS: piperacillin/tazo 3.375gm/50ml 50 ML IV SCH ×2 (02:28→09:11)
[2021-01-31] MEDS: lactulose 20gm/30ml cup PO SCH ×2 (02:39→09:12)
--- NOTE | 2021-01-31 06:00 | NUR ---
Patient in room CHANO 346. I have received report from randall mckay and had the opportunity to ask questions and assume patient care.
[2021-01-31 06:21] LABS: BASOPHILS # (AUTO) 0.1 X10'3 (0-0.2); BASOPHILS % (AUTO) 0.4 % (0-1); EOSINOPHILS # (AUTO) 0.1 X10'3 (0-0.9); EOSINOPHILS % (AUTO) 0.4 % (0-6); HEMATOCRIT 25.7 % (35.0-45.0); HEMOGLOBIN 8.4 g/dl (12.0-16.0); LYMPHOCYTES # (AUTO) 1.3 X10'3 (1.1-4.8); LYMPHOCYTES % (AUTO) 10.3 % (21-51); MEAN CORPUSCULAR HEMOGLOBIN 25.5 PG (27.0-31.0); MEAN CORPUSCULAR HGB CONC 32.8 g/dL (33.0-36.5); MEAN CORPUSCULAR VOLUME 77.8 FL (78-98); MONOCYTES # (AUTO) 1.1 X10'3 (0-0.9); MONOCYTES % (AUTO) 8.2 % (2-12); NEUTROPHILS # (AUTO) 10.5 X10'3 (1.8-7.7); NEUTROPHILS % (AUTO) 80.7 % (42-75); PLATELET COUNT 533 X10'3 (140-440); RED BLOOD COUNT 3.31 X10'6 (4.20-5.60); RED CELL DISTRIBUTION WIDTH 18.3 % (11.5-14.5)
[2021-01-31 06:33] LABS: ALBUMIN 1.8 G/DL (3.4-5.0); ANION GAP 11 (8-16); BLOOD UREA NITROGEN 30 MG/DL (7-18); BUN/CREATININE RATIO 18.2 (6.6-38.0); CALCIUM 8.2 MG/DL (8.5-10.1); CHLORIDE 93 MMOL/L (99-107); CREATININE 1.65 MG/DL (0.40-0.90); GLUCOSE 177 MG/DL (70-104); POTASSIUM 3.1 MMOL/L (3.5-5.1); SODIUM 132 MMOL/L (135-145); TOTAL CARBON DIOXIDE 27.6 MMOL/L (24-32); eGFR 30 ML/MIN
--- NOTE | 2021-01-31 06:53 | NUR ---
Problems reprioritized. Patient report given, questions answered & plan of care reviewed with [].
[2021-01-31] MEDS: insulin glargine (Lantus) pen - multi-dose SQ SCH (08:00)
--- NOTE | 2021-01-31 08:31 | NUR ---
page to dr chavez "[address] k3.1; cl 93; bun30/creat1.65; plt 5.33 na 132 -ceferino rn [id number]"
[2021-01-31] MEDS: polyethylene glycol 3350 17gm powd pack PO SCH (09:10)
[2021-01-31] MEDS: ferrous sulfate 325mg tablet PO SCH (09:11)
[2021-01-31] MEDS: amiodarone 200mg tablet PO SCH (09:11)
[2021-01-31] MEDS: docusate sod 250mg capsule PO SCH (09:11)
[2021-01-31] MEDS: zinc sulfate 220mg capsule PO SCH (09:12)
[2021-01-31] MEDS: lactobacillus rhamnosus 10,000 MMU CELLS/CAPSULE PO SCH (09:12)
[2021-01-31] MEDS: levoTHYROXINE 100mcg tablet PO SCH (09:12)
[2021-01-31] MEDS: potassium chloride 8mEq ER tablet PO SCH (09:12)
[2021-01-31] MEDS: ascorbic acid 500mg tablet PO SCH (09:12)
[2021-01-31] MEDS: perphenazine 8mg tablets PO SCH (09:12)
[2021-01-31] MEDS: pantoprazole 40mg Tablet.DR PO SCH (09:12)
[2021-01-31] MEDS: quetiapine 100mg tablet PO SCH (09:12)
[2021-01-31] MEDS: LORazepam 0.5 MG tablet PO SCH (09:13)
[2021-01-31] MEDS: multivitamins, therapeutics tablet PO SCH (09:13)
[2021-01-31] MEDS: risperiDONE 0.5mg tablet PO SCH (09:13)
[2021-01-31] MEDS: enoxaparin 30mg/0.3ml syringe SUBCUT SCH (09:14)
--- NOTE | 2021-01-31 09:41 | NUR ---
pt refusing breakfast
--- NOTE | 2021-01-31 11:14 | NUR ---
page to [phone]"coffee ground emesis-large amount, abd extremely distended-[id number], ceferino mckay"
[2021-01-31] MEDS: ondansetron/PF 4mg/2ml inj IV PRN (12:13)
[2021-01-31] MEDS ORDERED: pantoprazole 40MG/NS 100ML BAG 100 ML IV SCH ×3 (12:27→16:00)
--- NOTE | 2021-01-31 12:49 | NUR ---
Labs, and CXR results are pending. 's entry of orders for Lasix and K+ replacement are still pending. Latest VS @1200: 97.1 Ax, 111 HR, RR 20, O2 sat 95%/2L, 142/63 (leg), 0 pain.
[2021-01-31 13:02] LABS: BASOPHILS # (AUTO) 0.1 X10'3 (0-0.2); BASOPHILS % (AUTO) 0.4 % (0-1); EOSINOPHILS % (AUTO) 0.2 % (0-6); HEMATOCRIT 24.8 % (35.0-45.0); LYMPHOCYTES # (AUTO) 1.2 X10'3 (1.1-4.8); LYMPHOCYTES % (AUTO) 7.6 % (21-51); MEAN CORPUSCULAR HGB CONC 32.4 g/dL (33.0-36.5); MEAN CORPUSCULAR VOLUME 77.1 FL (78-98); MEAN PLATELET VOLUME 6.3 FL (7.4-10.4); MONOCYTES # (AUTO) 1.1 X10'3 (0-0.9); MONOCYTES % (AUTO) 6.9 % (2-12); NEUTROPHILS # (AUTO) 13.5 X10'3 (1.8-7.7); NEUTROPHILS % (AUTO) 84.9 % (42-75); PLATELET COUNT 515 X10'3 (140-440); RED BLOOD COUNT 3.22 X10'6 (4.20-5.60); RED CELL DISTRIBUTION WIDTH 18.2 % (11.5-14.5); WHITE BLOOD COUNT 15.9 X10'3 (4.5-11.0)
[2021-01-31 13:13] LABS: ALANINE AMINOTRANSFERASE 18 U/L (12-78); ALBUMIN 1.8 G/DL (3.4-5.0); ALBUMIN/GLOBULIN RATIO 0.3 (1.1-1.5); ALKALINE PHOSPHATASE 67 IU/L (46-116); ANION GAP 11 (8-16); ASPARTATE AMINO TRANSFERASE 22 U/L (10-37); BILIRUBIN,TOTAL 0.3 MG/DL (0.1-1.0); BLOOD UREA NITROGEN 35 MG/DL (7-18); BUN/CREATININE RATIO 20.8 (6.6-38.0); CALCIUM 8.2 MG/DL (8.5-10.1); CHLORIDE 95 MMOL/L (99-107); CREATININE 1.68 MG/DL (0.40-0.90); GLUCOSE 217 MG/DL (70-104); POTASSIUM 3.4 MMOL/L (3.5-5.1); SODIUM 134 MMOL/L (135-145); TOTAL CARBON DIOXIDE 28.5 MMOL/L (24-32); eGFR 30 ML/MIN
--- NOTE | 2021-01-31 13:30 | NUR ---
dr chavez returned page to be made aware of pt's worsening condition, including lung sounds, dark coffee ground emesis and abd distention. asked rn if pt was a full code and if she had cirrhosis. stated that she noted abd distention during her Addendum: 01/31/21 at 1336 by Galina Em RN assessment, asked to speak with community marketing manager. no orders obtained
--- NOTE | 2021-01-31 14:42 | NUR ---
Legal forms identifying Hong Kaur,as pt's Conservator, and a POLST stating pt is a DNR/Comfort Care are present in pt's paper-chart. DENNIS Saul-CM, and Dr. Dickson were made aware.
--- NOTE | 2021-01-31 16:10 | NUR ---
rn and na transported pt via wheelchair to home facility vehicle
--- NOTE | 2021-01-31 16:33 | NUR ---
...that was waiting at hospital entrance. pt had coffee ground emesis during transport. pt was gave minimal responses when talked and was a max4 assist to facility wheelchair . [facility] staff called facility to confirm DNR/comfort only status prior to accepting transfer of pt to their care
== END 2021-01-31 16:07 | DRG 872 ==
LOC: ER 11:00 → ED HOLD 15:16 → PCU 3S 01-28 11:10 → SUR 3N 01-30 10:47
PROVIDERS: ADMIT Family Medicine; ATTEND Family Medicine
DX: A41.9 Sepsis, unspecified organism (principal); N39.0 Urinary tract infection, site not specified; N17.9 Acute kidney failure, unspecified; F20.0 Paranoid schizophrenia; K92.2 Gastrointestinal hemorrhage, unspecified; E87.1 Hypo-osmolality and hyponatremia; D62 Acute posthemorrhagic anemia; N18.9 Chronic kidney disease, unspecified; K59.00 Constipation, unspecified; N20.0 Calculus of kidney; B95.2 Enterococcus as the cause of diseases classified elsewhere; E03.9 Hypothyroidism, unspecified; B96.5 Pseudomonas (aeruginosa) (mallei) (pseudomallei) as the cause of diseases classified elsewhere; E11.22 Type 2 diabetes mellitus with diabetic chronic kidney disease; E78.5 Hyperlipidemia, unspecified; R31.9 Hematuria, unspecified; Z20.822 Contact with and (suspected) exposure to COVID-19; I12.9 Hypertensive chronic kidney disease with stage 1 through stage 4 chronic kidney disease, or unspecified chronic kidney disease; Z66 Do not resuscitate; I48.91 Unspecified atrial fibrillation; J44.9 Chronic obstructive pulmonary disease, unspecified; Z79.4 Long term (current) use of insulin; Z51.5 Encounter for palliative care; Z87.442 Personal history of urinary calculi; Z79.890 Hormone replacement therapy
CPT/HCPCS: 36415; 71045; 74176; 80048; 80053; 81001; 82948; 83036; 83605; 83880; 84443; 84484; 85007; 85025; 85610; 87077; 87081; 87088; 87186; 87635; 93005; 97110; 97161; 97530; 99285; C9113; G0378; J0696; J1650; J1815; J2405; J2543; J7030